=== PATIENT | male | born 1945 | race Caucasian/White ===

== ENCOUNTER → 2018-01-20 | Day surgery (SDC) | payer MEDICARE, SELFPAY | PROVIDERS: PCP Family Medicine; Visit Provider Ophthalmology ==

== ENCOUNTER → 2018-02-19 08:18 | Outpatient (CLI) | payer MEDICARE, SELFPAY ==
[2018-02-19 08:24] LABS: Bacteria Urine None Seen; RBC Urine None Seen (0-5/HPF); WBC Urine None Seen (0-5/HPF)
[2018-02-19 09:35] LABS: Add Manual Diff / Slide Review NO; Basophils Percent Auto 0.2 % (0-2); Eosinophils Percent Auto 5.2 % (2-4); Hematocrit 41.1 % (41-53); Hemoglobin 14.3 g/dL (13.5-17.5); Lymphocytes Percent Auto 26.6 % (25-40); Mean Corpuscular HGB Conc 34.8 % (30-36); Mean Corpuscular Hemoglobin 29.5 PG (26-34); Mean Corpuscular Volume 84.9 fL (80-100); Monocytes Percent Auto 10.9 % (3-14); Neutrophils Absolute Auto 3900 /uL (3000-5900); Neutrophils Percent Auto 57.1 % (50-75); Platelet Count 229 X10^3/uL (150-400); Red Blood Cell Count 4.85 X10^6/uL (4.5-5.9); Red Cell Distribution Width 13.7 % (11.6-14.8); White Blood Cell Count 6.9 X10^3/uL (4.5-11.0)
[2018-02-19 09:42] LABS: Appearance Urine UA CLEAR; Bilirubin Urine UA NEGATIVE (NEGATIVE); Color Urine UA YELLOW; Glucose Urine UA NEGATIVE (Normal); Ketones Urine UA NEGATIVE (NEGATIVE); Leukocyte Esterase Urine UA NEGATIVE (NEGATIVE); Nitrite Urine UA Negative (Negative); Occult Blood Urine UA NEGATIVE (Negative); Protein Urine UA NEGATIVE (Negative); Specific Gravity Urine UA 1.015 (1.000-1.035); Urobilinogen Urine UA 0.2 E.U./dL (0.2)
[2018-02-19 09:53] LABS: Alanine Aminotransferase 35 IU/L (21-72); Albumin 4.3 g/dL (3.5-5.0); Albumin Globulin Ratio 1.3 (1.0-2.8); Alkaline Phosphatase 79 U/L (38-126); Aspartate Aminotransferase 32 IU/L (17-59); BUN Creatinine Ratio 15.7 (6-22); Blood Urea Nitrogen 11 mg/dL (9-20); Calcium 9.4 mg/dL (8.4-10.2); Carbon Dioxide 30 mmol/L (22-32); Chloride 98 mmol/L (98-107); Cholesterol 149 mg/dL (140-199); Estimated Glomerular Filt Rate > 60.0 mL/min (>60); Globulin 3.3 g/dL (1.7-4.1); Glucose 98 mg/dL (80-110); HDL Cholesterol 36 mg/dL (40-60); HEMOLYSIS < 15 (0-50); LDL Cholesterol Calculated 97 mg/dL (<100); Potassium 3.9 mmol/L (3.4-5.1); Sodium 139 mmol/L (137-145); Total Protein 7.6 g/dL (6.3-8.2); Triglycerides 81 mg/dL (35-150)
[2018-02-19 10:17] LABS: Thyroid Stimulating Hormone 1.42 uIU/mL (0.47-4.68)
[2018-02-19 12:52] LABS: Amorphous Sediment Urine 1+; Culture Indicated Urine Cult Not Indicated
== END ==
PROVIDERS: Family Medicine; PCP Family Medicine; Visit Provider Family Medicine
DX: E78.5 Hyperlipidemia, unspecified (principal); I10 Essential (primary) hypertension; Z12.5 Encounter for screening for malignant neoplasm of prostate
CPT/HCPCS: 36415; 80053; 80061; 81001; 84153; 84443; 85025

== ENCOUNTER → 2019-03-23 09:15 | Outpatient (CLI) | payer MEDICARE, SELFPAY ==
[2019-03-23 10:05] LABS: Appearance Urine UA CLEAR; Bilirubin Urine UA NEGATIVE (NEGATIVE); Color Urine UA YELLOW; Glucose Urine UA NEGATIVE (Negative); Ketones Urine UA NEGATIVE (NEGATIVE); Leukocyte Esterase Urine UA NEGATIVE (NEGATIVE); Nitrite Urine UA NEGATIVE (Negative); Occult Blood Urine UA NEGATIVE (Negative); Protein Urine UA NEGATIVE (Negative); Urobilinogen Urine UA 0.2 E.U./dL (0.2)
[2019-03-23 10:28] LABS: Alanine Aminotransferase 30 IU/L (21-72); Albumin 4.1 g/dL (3.5-5.0); Albumin Globulin Ratio 1.3 (1.0-2.8); Alkaline Phosphatase 84 U/L (38-126); Aspartate Aminotransferase 34 IU/L (17-59); Bilirubin Total 0.7 mg/dL (0.2-1.3); Blood Urea Nitrogen 14 mg/dL (9-20); Calcium 9.1 mg/dL (8.4-10.2); Carbon Dioxide 31 mmol/L (22-32); Chloride 102 mmol/L (98-107); Cholesterol 140 mg/dL (140-199); Estimated Glomerular Filt Rate > 60.0 mL/min (>60); Globulin 3.2 g/dL (1.7-4.1); Glucose 95 mg/dL (80-110); HDL Cholesterol 30 mg/dL (40-60); HEMOLYSIS < 15 (0-50); LDL Cholesterol Calculated 94 mg/dL (<100); Potassium 3.8 mmol/L (3.4-5.1); Sodium 141 mmol/L (137-145); Total Protein 7.3 g/dL (6.3-8.2); Triglycerides 78 mg/dL (35-150)
[2019-03-23 10:54] LABS: Thyroid Stimulating Hormone 1.37 uIU/mL (0.47-4.68)
[2019-03-23 16:46] LABS: Prostate Specific Antigen Scrn 1.15 ng/mL (0.1-4.0)
== END ==
PROVIDERS: PCP Family Medicine; Visit Provider Family Medicine
DX: E78.2 Mixed hyperlipidemia (principal); I10 Essential (primary) hypertension; I48.91 Unspecified atrial fibrillation; Z12.5 Encounter for screening for malignant neoplasm of prostate; Z13.29 Encounter for screening for other suspected endocrine disorder
CPT/HCPCS: 36415; 80053; 80061; 81003; 84443; G0103

== ENCOUNTER → 2019-04-26 08:26 | Outpatient (CLI) | payer MEDICARE, SELFPAY ==
[2019-04-26 09:39] LABS: Alanine Aminotransferase 36 IU/L (21-72); Albumin Globulin Ratio 1.3 (1.0-2.8); Alkaline Phosphatase 86 U/L (38-126); Aspartate Aminotransferase 29 IU/L (17-59); Bilirubin Total 1.1 mg/dL (0.2-1.3); Blood Urea Nitrogen 14 mg/dL (9-20); Calcium 9.3 mg/dL (8.4-10.2); Carbon Dioxide 30 mmol/L (22-32); Chloride 98 mmol/L (98-107); Cholesterol 156 mg/dL (140-199); Estimated Glomerular Filt Rate > 60.0 mL/min (>60); Glucose 90 mg/dL (80-110); HDL Cholesterol 39 mg/dL (40-60); HEMOLYSIS < 15 (0-50); LDL Cholesterol Calculated 92 mg/dL (<100); Potassium 4.1 mmol/L (3.4-5.1); Sodium 137 mmol/L (137-145); Triglycerides 124 mg/dL (35-150)
== END ==
PROVIDERS: PCP Family Medicine; Visit Provider Internal Medicine Cardiovascular Disease
DX: I10 Essential (primary) hypertension (principal)
CPT/HCPCS: 36415; 80053; 80061

== ENCOUNTER → 2019-08-23 09:08 | Outpatient (CLI) | payer MEDICARE, SELFPAY ==
[2019-08-23 10:50] LABS: Alanine Aminotransferase 28 IU/L (<50); Albumin 4.2 g/dL (3.5-5.0); Albumin Globulin Ratio 1.6 (1.0-2.8); Alkaline Phosphatase 86 U/L (38-126); Aspartate Aminotransferase 35 IU/L (17-59); BUN Creatinine Ratio 17.1 (6-22); Bilirubin Total 1.2 mg/dL (0.2-1.3); Blood Urea Nitrogen 12 mg/dL (9-20); Calcium 9.3 mg/dL (8.4-10.2); Carbon Dioxide 30 mmol/L (22-32); Chloride 100 mmol/L (98-107); Cholesterol 156 mg/dL (140-199); Estimated Glomerular Filt Rate > 60.0 mL/min (>60); Globulin 2.6 g/dL (1.7-4.1); Glucose 93 mg/dL (80-110); HDL Cholesterol 35 mg/dL (40-60); HEMOLYSIS < 15 (0-50); LDL Cholesterol Calculated 105 mg/dL (<100); Potassium 3.9 mmol/L (3.4-5.1); Sodium 139 mmol/L (137-145); Total Protein 6.8 g/dL (6.3-8.2); Triglycerides 78 mg/dL (35-150)
== END ==
PROVIDERS: PCP Family Medicine; Visit Provider Family Medicine
DX: E78.2 Mixed hyperlipidemia (principal); I10 Essential (primary) hypertension
CPT/HCPCS: 36415; 80053; 80061

== ENCOUNTER → 2020-02-16 08:38 | Outpatient (CLI) | payer MEDICARE, SELFPAY ==
[2020-02-16 09:22] LABS: Alanine Aminotransferase 25 IU/L (<50); Albumin 4.3 g/dL (3.5-5.0); Albumin Globulin Ratio 1.3 (1.0-2.8); Alkaline Phosphatase 90 U/L (38-126); Aspartate Aminotransferase 35 IU/L (17-59); BUN Creatinine Ratio 14.7 (6-22); Bilirubin Total 1.1 mg/dL (0.2-1.3); Blood Urea Nitrogen 10 mg/dL (9-20); Calcium 9.4 mg/dL (8.4-10.2); Carbon Dioxide 30 mmol/L (22-32); Chloride 100 mmol/L (98-107); Cholesterol 141 mg/dL (140-199); Estimated Glomerular Filt Rate > 60.0 mL/min (>60); Globulin 3.3 g/dL (1.7-4.1); Glucose 104 mg/dL (80-110); HDL Cholesterol 31 mg/dL (40-60); HEMOLYSIS < 15 (0-50); LDL Cholesterol Calculated 94 mg/dL (<100); Sodium 137 mmol/L (137-145); Total Protein 7.6 g/dL (6.3-8.2); Triglycerides 80 mg/dL (35-150)
[2020-02-16 09:28] LABS: Add Manual Diff / Slide Review NO; Basophils Absolute Auto 0 /uL (0-100); Basophils Percent Auto 0.6 % (0-2); Eosinophils Absolute Auto 100 /uL (0-450); Eosinophils Percent Auto 1.5 % (2-4); Hematocrit 39.7 % (41-53); Hemoglobin 13.8 g/dL (13.5-17.5); Lymphocytes Absolute Auto 1900 /uL (1100-4500); Lymphocytes Percent Auto 26.5 % (25-40); Mean Corpuscular HGB Conc 34.8 % (30-36); Mean Corpuscular Hemoglobin 29.6 PG (26-34); Mean Corpuscular Volume 85.1 fL (80-100); Monocytes Absolute Auto 900 /uL (0-900); Monocytes Percent Auto 11.7 % (3-14); Neutrophils Absolute Auto 4400 /uL (1500-7000); Neutrophils Percent Auto 59.7 % (50-75); Platelet Count 238 X10^3/uL (150-400); Red Blood Cell Count 4.67 X10^6/uL (4.5-5.9); Red Cell Distribution Width 13.6 % (11.6-14.8); White Blood Cell Count 7.3 X10^3/uL (4.5-11.0)
[2020-02-16 10:11] LABS: Thyroid Stimulating Hormone 1.37 uIU/mL (0.47-4.68)
== END ==
PROVIDERS: PCP Nurse Practitioner; Referring Provider Family Medicine; Visit Provider Family Medicine
DX: Z12.5 Encounter for screening for malignant neoplasm of prostate (principal); I10 Essential (primary) hypertension; I48.91 Unspecified atrial fibrillation; E78.2 Mixed hyperlipidemia
CPT/HCPCS: 36415; 80053; 80061; 84153; 84443; 85025

== ENCOUNTER → 2020-06-22 08:48 | Outpatient (CLI) | payer MEDICARE, SELFPAY ==
[2020-06-22 09:49] LABS: Add Manual Diff / Slide Review NO; Basophils Absolute Auto 0 /uL (0-100); Basophils Percent Auto 0.2 % (0-2); Eosinophils Absolute Auto 100 /uL (0-450); Eosinophils Percent Auto 1.6 % (2-4); Hemoglobin 13.9 g/dL (13.5-17.5); Lymphocytes Absolute Auto 1800 /uL (1100-4500); Lymphocytes Percent Auto 27.2 % (25-40); Mean Corpuscular HGB Conc 34.7 % (30-36); Mean Corpuscular Hemoglobin 29.4 PG (26-34); Mean Corpuscular Volume 84.7 fL (80-100); Monocytes Absolute Auto 900 /uL (0-900); Monocytes Percent Auto 12.7 % (3-14); Neutrophils Absolute Auto 3900 /uL (1500-7000); Neutrophils Percent Auto 58.3 % (50-75); Platelet Count 233 X10^3/uL (150-400); Red Blood Cell Count 4.72 X10^6/uL (4.5-5.9); Red Cell Distribution Width 13.6 % (11.6-14.8); White Blood Cell Count 6.7 X10^3/uL (4.5-11.0)
[2020-06-22 10:10] LABS: Alanine Aminotransferase 24 IU/L (<50); Albumin Globulin Ratio 1.3 (1.0-2.8); Alkaline Phosphatase 97 U/L (38-126); Aspartate Aminotransferase 32 IU/L (17-59); BUN Creatinine Ratio 18.8 (6-22); Blood Urea Nitrogen 13 mg/dL (9-20); Calcium 9.4 mg/dL (8.4-10.2); Carbon Dioxide 33 mmol/L (22-32); Chloride 100 mmol/L (98-107); Cholesterol 135 mg/dL (140-199); Estimated Glomerular Filt Rate > 60.0 mL/min (>60); Glucose 96 mg/dL (80-110); HDL Cholesterol 39 mg/dL (40-60); HEMOLYSIS < 15 (0-50); LDL Cholesterol Calculated 84 mg/dL (<100); Sodium 137 mmol/L (137-145); Triglycerides 59 mg/dL (35-150)
== END ==
PROVIDERS: PCP Nurse Practitioner; Referring Provider Internal Medicine Cardiovascular Disease; Visit Provider Internal Medicine Cardiovascular Disease
DX: Z79.01 Long term (current) use of anticoagulants (principal); E78.2 Mixed hyperlipidemia
CPT/HCPCS: 36415; 80053; 80061; 85025

== ENCOUNTER → 2020-07-18 08:59 | Outpatient (CLI) | payer MEDICARE, SELFPAY ==
--- NOTE | 2020-07-18 09:01 | DI.RAD.S_ITS ---
PROCEDURE: XR HIP W PEL IF DONE RT 2V INDICATIONS: right hip pain TECHNIQUE: AP pelvis with lateral view(s) of the right hip(s). COMPARISON: [facility], , HIP 2V RIGHT, 09/06/2015, 10:40. FINDINGS: Bones: No fractures or dislocations but there has been appreciable worsening of degenerative hip joint osteoarthritis on the right. As was previously the case the degree of degeneration is near severe, and degeneration at the left hip is moderate.. Pelvic ring appears intact. No suspicious bony lesions. Soft tissues: The visualized bowel gas pattern is normal. No suspicious soft tissue calcifications. IMPRESSION: Asymmetric hip joint osteoarthritis, near severe on the right and moderate in severity on the left. The degree of degeneration at the right hip has mildly worsened as expected from 09/06/15. Dictated by: Prosper Sepulveda M.D. on 07/18/2020 at 9:57 Approved by: Prosper Sepulveda M.D. on 07/18/2020 at 9:59
== END ==
PROVIDERS: PCP Nurse Practitioner; Referring Provider Nurse Practitioner; Visit Provider Nurse Practitioner
DX: M25.551 Pain in right hip (principal); M16.0 Bilateral primary osteoarthritis of hip; M79.604 Pain in right leg
CPT/HCPCS: 73502

== ENCOUNTER → 2020-10-13 12:17 | Outpatient (CLI) | payer MEDICARE, SELFPAY ==
[2020-10-13] MEDS: COVID-19 VACC #1, MRNA(MOD) 100 MCG/0.5 ML VIAL IM (12:27)
== END ==
PROVIDERS: PCP Nurse Practitioner; Visit Provider Internal Medicine
DX: Z23 Encounter for immunization (principal)
CPT/HCPCS: 0011A; 91301

== ENCOUNTER → 2020-11-10 13:00 | Outpatient (CLI) | payer MEDICARE, SELFPAY ==
[2020-11-10] MEDS: COVID-19 VACC #2, MRNA(MOD) 100 MCG/0.5 ML VIAL IM (13:20)
== END ==
PROVIDERS: PCP Nurse Practitioner; Visit Provider Internal Medicine
DX: Z23 Encounter for immunization (principal)
CPT/HCPCS: 0012A; 91301

== ENCOUNTER → 2020-12-20 08:32 | Outpatient (CLI) | payer MEDICARE, SELFPAY ==
[2020-12-20 09:31] LABS: Hemoglobin A1C% w Est Avg Glu 5.7 % (4.0-6.0)
[2020-12-20 09:51] LABS: Alanine Aminotransferase 22 IU/L (<50); Albumin Globulin Ratio 1.4 (1.0-2.8); Alkaline Phosphatase 94 U/L (38-126); Aspartate Aminotransferase 31 IU/L (17-59); BUN Creatinine Ratio 14.3 (6-22); Bilirubin Total 0.9 mg/dL (0.2-1.3); Blood Urea Nitrogen 9 mg/dL (9-20); Calcium 9.5 mg/dL (8.4-10.2); Carbon Dioxide 30 mmol/L (22-32); Chloride 99 mmol/L (98-107); Cholesterol 140 mg/dL (140-199); Estimated Glomerular Filt Rate > 60.0 mL/min (>60); Globulin 2.8 g/dL (1.7-4.1); Glucose 94 mg/dL (80-110); HDL Cholesterol 41 mg/dL (40-60); HEMOLYSIS < 15 (0-50); LDL Cholesterol Calculated 83 mg/dL (<100); Potassium 3.7 mmol/L (3.4-5.1); Sodium 136 mmol/L (137-145); Total Protein 6.8 g/dL (6.3-8.2); Triglycerides 79 mg/dL (35-150)
[2020-12-20 10:12] LABS: Prostate Specific Antigen 1.58 ng/mL (0.10-4.00); Thyroid Stimulating Hormone 1.43 uIU/mL (0.47-4.68)
[2020-12-20 10:14] LABS: Creatinine Urine Random 79.6 mg/dL
[2020-12-20 10:18] LABS: Microalbumi Creatinin Ratio Ur 17.5 ug/mg CR (<30); Microalbumin Urine Random 1.4 mg/dL (0-1.6)
== END ==
PROVIDERS: PCP Nurse Practitioner; Referring Provider Nurse Practitioner; Visit Provider Nurse Practitioner
DX: E78.2 Mixed hyperlipidemia (principal); Z79.899 Other long term (current) drug therapy; I10 Essential (primary) hypertension; I48.20 Chronic atrial fibrillation, unspecified; Z12.5 Encounter for screening for malignant neoplasm of prostate
CPT/HCPCS: 36415; 80053; 80061; 82043; 82570; 83036; 84153; 84443; G0103

== ENCOUNTER → 2020-12-25 13:08 | Outpatient (CLI) | payer MEDICARE, SELFPAY ==
[2020-12-27 14:12] LABS: Fecal Immunochemical Test Negative (Negative)
== END ==
PROVIDERS: PCP Nurse Practitioner; Referring Provider Nurse Practitioner; Visit Provider Nurse Practitioner
DX: E78.2 Mixed hyperlipidemia (principal); I10 Essential (primary) hypertension; I48.20 Chronic atrial fibrillation, unspecified; Z79.899 Other long term (current) drug therapy; Z12.11 Encounter for screening for malignant neoplasm of colon
CPT/HCPCS: 82274

== ENCOUNTER → 2021-06-22 08:52 | Outpatient (CLI) | payer MEDICARE, SELFPAY ==
[2021-06-22 10:14] LABS: Add Manual Diff / Slide Review NO; Basophils Absolute Auto 0 /uL (0-100); Basophils Percent Auto 0.2 % (0-2); Eosinophils Absolute Auto 100 /uL (0-450); Eosinophils Percent Auto 1.6 % (2-4); Hematocrit 41.1 % (41-53); Hemoglobin 14.1 g/dL (13.5-17.5); Lymphocytes Absolute Auto 2400 /uL (1100-4500); Lymphocytes Percent Auto 30.9 % (25-40); Mean Corpuscular HGB Conc 34.3 % (30-36); Mean Corpuscular Hemoglobin 29.3 PG (26-34); Mean Corpuscular Volume 85.7 fL (80-100); Monocytes Absolute Auto 1000 /uL (0-900); Monocytes Percent Auto 12.5 % (3-14); Neutrophils Absolute Auto 4200 /uL (1500-7000); Neutrophils Percent Auto 54.8 % (50-75); Platelet Count 229 X10^3/uL (150-400); Red Cell Distribution Width 13.9 % (11.6-14.8); White Blood Cell Count 7.7 X10^3/uL (4.5-11.0)
[2021-06-22 10:30] LABS: Alanine Aminotransferase 28 IU/L (<50); Albumin 4.1 g/dL (3.5-5.0); Albumin Globulin Ratio 1.5 (1.0-2.8); Alkaline Phosphatase 87 U/L (38-126); Aspartate Aminotransferase 31 IU/L (17-59); Blood Urea Nitrogen 13 mg/dL (9-20); Calcium 9.5 mg/dL (8.4-10.2); Carbon Dioxide 34 mmol/L (22-32); Chloride 101 mmol/L (98-107); Cholesterol 155 mg/dL (140-199); Estimated Glomerular Filt Rate > 60.0 mL/min (>60); Globulin 2.8 g/dL (1.7-4.1); Glucose 91 mg/dL (80-110); HDL Cholesterol 45 mg/dL (40-60); HEMOLYSIS < 15 (0-50); LDL Cholesterol Calculated 94 mg/dL (<100); Potassium 3.8 mmol/L (3.4-5.1); Sodium 139 mmol/L (137-145); Total Protein 6.9 g/dL (6.3-8.2); Triglycerides 82 mg/dL (35-150)
== END ==
PROVIDERS: PCP Nurse Practitioner; Referring Provider Internal Medicine Cardiovascular Disease; Visit Provider Internal Medicine Cardiovascular Disease
DX: Z79.01 Long term (current) use of anticoagulants (principal); E78.2 Mixed hyperlipidemia
CPT/HCPCS: 36415; 80053; 80061; 85025

== ENCOUNTER → 2021-08-29 14:44 | Outpatient (CLI) | payer MEDICARE, SELFPAY ==
[2021-08-29 16:54] LABS: BUN Creatinine Ratio 13.9 (6-22); Blood Urea Nitrogen 11 mg/dL (9-20); Calcium 9.5 mg/dL (8.4-10.2); Carbon Dioxide 29 mmol/L (22-32); Chloride 101 mmol/L (98-107); Estimated Glomerular Filt Rate > 60.0 mL/min (>60); Glucose 137 mg/dL (80-110); HEMOLYSIS < 15 (0-50); Potassium 4.1 mmol/L (3.4-5.1); Sodium 139 mmol/L (137-145)
== END ==
PROVIDERS: PCP Nurse Practitioner; Referring Provider Internal Medicine Cardiovascular Disease; Visit Provider Internal Medicine Cardiovascular Disease
DX: I10 Essential (primary) hypertension (principal)
CPT/HCPCS: 36415; 80048

== ENCOUNTER → 2021-09-27 14:52 | Outpatient (CLI) | payer MEDICARE, SELFPAY ==
[2021-09-27 16:28] LABS: BUN Creatinine Ratio 16.3 (6-22); Blood Urea Nitrogen 14 mg/dL (9-20); Calcium 9.4 mg/dL (8.4-10.2); Carbon Dioxide 28 mmol/L (22-32); Chloride 98 mmol/L (98-107); Estimated Glomerular Filt Rate > 60.0 mL/min (>60); Glucose 114 mg/dL (80-110); HEMOLYSIS 23 (0-50); Potassium 4.5 mmol/L (3.4-5.1); Sodium 132 mmol/L (137-145)
== END ==
PROVIDERS: PCP Nurse Practitioner; Referring Provider Internal Medicine Cardiovascular Disease; Visit Provider Internal Medicine Cardiovascular Disease
DX: I10 Essential (primary) hypertension (principal)
CPT/HCPCS: 36415; 80048

== ENCOUNTER 2021-10-14 05:38 | Emergency (ER) | payer MEDICARE, SELFPAY ==
[2021-10-14] VITALS (13 sets, daily range): BP systolic 136–222; BP diastolic 66–102; PULSE 54–70; RESP 12–20; TEMP 36.4–36.5; O2SAT 96–100; BMI 27.3
--- NOTE | 2021-10-14 05:39 | DI.RAD.S_ITS ---
PROCEDURE: XR CHEST 1V INDICATIONS: chest pressure TECHNIQUE: One view of the chest was acquired. COMPARISON: [facility], CR, XR CHEST 1 VIEW, 08/05/2021, 12:21. [facility], CR, CHEST 1 VIEW, 06/25/2017, 13:09. FINDINGS: Surgical changes and devices: Loop recorder. Lungs and pleura: Lungs are clear. Prominent lung volumes. No pleural effusions or pneumothorax. Mediastinum: Mediastinal contours appear normal. Heart size is normal. Bones and chest wall: No suspicious bony lesions. Overlying soft tissues appear unremarkable. IMPRESSION: No acute cardiopulmonary abnormality. This report is concordant with the overnight preliminary interpretation. Dictated by: Mehdi Mejia M.D. on 10/14/2021 at 7:04 Approved by: Mehdi Mejia M.D. on 10/14/2021 at 7:05
--- NOTE | 2021-10-14 05:51 | ED_ITS ---
HPI - Chest Pain General Chief Complaint: Chest Pain Stated Complaint: chest pressure, heart condition Time Seen by Provider: 10/14/21 05:39 Source: patient Mode of arrival: Ambulatory History of Present Illness HPI narrative: 75-year-old male nonsmoker with history of atrial fibrillation on Eliquis and hypertension presents with his in the chief complaint of chest pressure and heaviness that has been increasing over the past day or so. He states that he has a very complicated recent medical history with multiple visits and hosp italizations. In the big picture, he is very difficult to control blood pressure and his cardiology team is pursuing an ablation in order to remove some of his AFib medications which would allow them to be more aggressive in the treatment of his hypertension. He has undergone countless medication changes in the fast month or 2. Few weeks ago he had been admitted at [facility], he was visiting friends and family in [place] and had an unprovoked syncopal episode. He was admitted for few days and had a broad of tests which were (per the patient) essentially normal. He had followed up with his cardiology team 2 days ago and due to his slowly rising blood pressures had amlodipine 5 mg added to his regimen, he took his 1st dose yesterday. Over the course of the day he started developing increasing frequency and episodes of chest pressure that seemed to be worse when he lies flat and improved when he is up walking around. He has an existing as needed prescription for Catapres 0.1 mg which he is supposed to take every time his blood pressure is over 180. Typically he will take it once per day, yesterday he took it 3 times. He denies any headache or blurred vision. He denies any shortness of breath. He has had no fever or chills and denies nausea or vomiting. Related Data Home Medications Medication Instructions Recorded Confirmed latanoprost 0.005 % eye drops [address] [facility] HS #0 06/25/17 10/08/21 apixaban 5 mg tablet (Eliquis) 5 mg PO BID 05/17/19 10/08/21 amiodarone 200 mg tablet 100 mg PO DAILY tab 10/08/21 10/08/21 carvedilol 12.5 mg tablet 12.5 mg PO BID 10/08/21 10/08/21 clonidine HCl 0.1 mg tablet 0.1 mg PO .every 2 hours tab 10/08/21 10/08/21 spironolactone 25 mg tablet 25 mg PO DAILY 10/08/21 10/08/21 Previous Rx's Medication Instructions Recorded atorvastatin 40 mg tablet (Lipitor) 40 mg PO HS #90 tab 07/10/21 lisinopril 40 mg tablet 40 mg PO DAILY #90 tab 08/14/21 Allergies Allergy/AdvReac Type Severity Reaction Status Date / Time No Known Drug Allergies Allergy Verified 10/14/21 05:49 Review of Systems Review of Systems Narrative: GENERAL: Denies chills, fatigue, malaise, fever, sweats. HEENT: Denies sinus pain, ear pain, sore throat, difficulty swallowing, dizziness. RESPIRATORY: Denies dyspnea, cough, wheezing, hemoptysis, sputum. CARDIOVASCULAR: See HPI GASTROINTESTINAL: Denies nausea, vomiting, abdominal pain, diarrhea, constipation, melena. : Denies dysuria, frequency, incontinence, hematuria, urinary retention. MUSCULOSKELETAL: denies weakness, joint pain, or bony pain SKIN: Denies rash, skin lesions, or other NEUROLOGIC: Denies weakness, headache, numbness, change in speech, confusion, seizures, incoordination. PSYCHIATRIC: No concerning psychosocial issues. 12 point review of systems is negative except for those stated above Patient History Medical History A-fib Atrial fibrillation (06/2017) Atrial fibrillation with rapid ventricular response (06/25/17) BCC (basal cell carcinoma of skin) Chronic anticoagulation Chronic atrial fibrillation Colon polyps (05/18/09) Gait abnormality Hyperlipidemia Hypertension Melanoma (2010) Psoriasis (2010) Right hip pain Right leg pain SCCA (squamous cell carcinoma) of skin Surgical History History of colonoscopy with polypectomy (05/18/09) History of colonoscopy with polypectomy (04/15/17) History of left cataract surgery (01/20/18) History of melanoma excision (2010) History of melanoma excision (2015) History of right cataract surgery (01/06/18) History of vasectomy (1987) Family History Father Cancer Grandfather Stroke Mother Heart disease Grandmother Cancer Grandfather Stroke Grandmother Stroke Sister No problems noted. Social History household members: spouse Smoking Status: Never smoker second hand exposure: No alcohol intake: never substance use type: does not use Smoking Status: Never smoker Substance Use Type: does not use Exam Narrative Exam Narrative: GENERAL: [75 year old patient appears stated age. Well-developed patient, in mild distress. HEAD: Atraumatic. Normocephalic. EYES: Pupils equal round and reactive. Extraocular motions intact. No scleral icterus. No injection or drainage. ENT: Nose without bleeding, purulent drainage. Throat without erythema, t onsillar hypertrophy or exudate. Airway patent. NECK: Trachea midline. Non tender CARDIOVASCULAR: Regular rate and rhythm without murmurs, gallops, or rubs. RESPIRATORY: Clear to auscultation. Breath sounds equal bilaterally. No wheezes, rales, or rhonchi. GASTROINTESTINAL: Abdomen soft, non-tender, nondistended. EXTREMITIES: No edema or joint tenderness. BACK: Nontender without deformity or crepitance. No flank tenderness. NEURO: AOx3. SKIN: No rash or erythema of visible areas Initial Vital Signs Initial Vital Signs: Vital Signs Pulse Rate 70 10/14/21 05:42 Blood Pressure 222/102 H 10/14/21 05:42 Pulse Oximetry 99 10/14/21 05:42 Course Course Course Narrative: On arrival patient's systolic blood pressure is 222 and he is symptomatic, by the time labs are drawn EKGs performed and he is given 15-20 minutes to rest his blood pressure drops to the 170s and he is essentially asymptomatic. Orders Ordered: Discontinued Medications Clonidine HCl (Clonidine Tts 0.1 Mg Patch) 0.1 mg TOP NOW ONE Stop: 10/14/21 06:51 Last Admin: 10/14/21 07:02 Dose: 0.1 mg Documented by: SHRUTHIARRDanya Sodium Chloride (Normal Saline 0.9%) 1,000 mls @ 150 mls/hr IV CONT ANGELA Last Admin: 10/14/21 06:37 Dose: 150 mls/hr Documented by: ARMANI Consultations Consultation #1: call to Dr. Deras. Recommends Catapres patch, encourage patient to sleep at 45 degree angle and close follow up Vital Signs Vital signs: Vital Signs - 8 hr 10/14/21 05:42 10/14/21 05:46 10/14/21 05:56 Temperature 97.7 F Pulse Rate 70 64 60 Pulse Rate [Orthostatic Lying] Pulse Rate [Orthostatic Sitting] Pulse Rate [Orthostatic Standing] Respiratory Rate 18 18 Blood Pressure 222/102 H 222/102 H 176/84 H Blood Pressure [Orthostatic Lying] Blood Pressure [Orthostatic Sitting] Blood Pressure [Orthostatic Standing] Pulse Oximetry 99 98 99 10/14/21 06:00 10/14/21 06:19 10/14/21 06:21 Temperature Pulse Rate 61 60 60 Pulse Rate [Orthostatic Lying] Pulse Rate [Orthostatic Sitting] Pulse Rate [Orthostatic Standing] Respiratory Rate 16 12 15 Blood Pressure 177/92 H 166/81 H 162/83 H Blood Pressure [Orthostatic Lying] Blood Pressure [Orthostatic Sitting] Blood Pressure [Orthostatic Standing] Pulse Oximetry 100 97 98 10/14/21 06:23 10/14/21 06:30 10/14/21 06:35 Temperature Pulse Rate 66 59 L Pulse Rate [Orthostatic Lying] 60 Pulse Rate [Orthostatic Sitting] 60 Pulse Rate [Orthostatic Standing] 66 Respiratory Rate 15 20 Blood Pressure 136/75 168/77 H Blood Pressure [Orthostatic Lying] 166/81 H Blood Pressure [Orthostatic Sitting] 162/83 H Blood Pressure [Orthostatic Standing] 136/75 Pulse Oximetry 98 98 MDM - Chest Pain Lab Data Result diagrams: 10/14/21 05:58 10/14/21 05:58 Labs: Lab Results 10/14/21 10/14/21 Range/Units 05:58 05:58 WBC 9.0 (4.5-11.0) X10^3/uL RBC 5.13 (4.5-5.9) X10^6/uL Hgb 14.9 (13.5-17.5) g/dL Hct 43.3 (41-53) % MCV 84.4 (80-100) fL MCH 29.1 (26-34) PG MCHC 34.4 (30-36) % RDW 14.0 (11.6-14.8) % Plt Count 221 (150-400) X10^3/uL Neut % (Auto) 67.1 (50-75) % Lymph % (Auto) 21.2 L (25-40) % [place] % (Auto) 9.4 (3-14) % Eos % (Auto) 2.0 (2-4) % Baso % (Auto) 0.3 (0-2) % Neut # (Auto) 6000 (3597-5916) /uL Lymph # (Auto) 1900 (6486-6467) /uL [place] # (Auto) 800 (0-900) /uL Eos # (Auto) 200 (0-450) /uL Baso # (Auto) 0 (0-100) /uL Sodium 128 L (137-145) mmol/L Potassium 4.3 (3.4-5.1) mmol/L Chloride 94 L (98-107) mmol/L Carbon Dioxide 28 (22-32) mmol/L BUN 11 (9-20) mg/dL Creatinine 0.74 (0.66-1.25) mg/dL Estimated GFR > 60.0 (>60) mL/min BUN/Creatinine Ratio 14.9 (6-22) Glucose 106 (80-110) mg/dL Calcium 9.6 (8.4-10.2) mg/dL Total Bilirubin 0.9 (0.2-1.3) mg/dL AST 31 (17-59) IU/L ALT 28 (<50) IU/L Alkaline Phosphatase 88 (38-126) U/L Total Creatine Kinase 63 (55-170) U/L CK-MB (CK-2) TNP CK-MB (CK-2) Rel Index TNP Troponin I < 0.012 (0.01-0.034) ng/mL NT-Pro-B Natriuret Pep 256 H (<125) pg/mL Total Protein 8.2 (6.3-8.2) g/dL Albumin 4.7 (3.5-5.0) g/dL Globulin 3.5 (1.7-4.1) g/dL Albumin/Globulin Ratio 1.3 (1.0-2.8) Lipase 126 (23-300) U/L Discharge Plan Departure Patient Disposition: Home Clinical Impression: Labile blood pressure, Hypertension Instructions: DI for Malignant Hypertension Activity Restrictions/Additional Instructions: *You have been diagnosed with [symptomatic hypertension ] *What to do: *Please continue to take your regular medications as directed. [ ] Today you were given a Catapres 0.1mg transdermal patch *Please follow up with your primary director of managed services in 2-3 days, call for an appointment. Let them know you were seen in the Emergency Department and that we ask that you be seen in follow up. We will electronically transmit a record of today's note if your PCP is in our system * also, as we discussed and as was recommended by Cardiology please try your best to sleep at a 45 degree angle, we recognize this may be difficult and uncomfortable but do the best you can. *If you do not have a primary care provider please contact the [facility] Resource line at [phone]. They will ask some questions about your medical history and help get you set up with a doctor in the community. *Return to Emergency Department if you should have any new, worsening or concerning symptoms, such as [fever greater than 101 F, shaking chills, worsening pain, persistent vomiting or other bothersome symptoms] Prescriptions: No Action latanoprost 0.005 % drops 1 drp OPHTH HS Qty: 0 0RF atorvastatin [Lipitor] 40 mg tablet 40 mg PO HS Qty: 90 3RF amiodarone 200 mg tablet 100 mg PO DAILY 0RF carvedilol 12.5 mg tablet 12.5 mg PO BID 0RF Rx Instructions: must administer with a meal/food spironolactone 25 mg tablet 25 mg PO DAILY 0RF clonidine HCl 0.1 mg tablet 0.1 mg PO .every 2 hours 0RF Label Comments: Take 1 tab every 2 hours as needed for systolic BP >180. Eliquis 5 mg tablet 5 mg PO BID 0RF lisinopril 40 mg tablet 40 mg PO DAILY Qty: 90 3RF Rx Instructions: Take 1 tab daily in the evening for BP, goal <140/90 consistently Referrals: Azam Ravi MD [Physician] - Sydni Garcia ARNP [Primary Care Provider] -
[2021-10-14 06:05] LABS: Add Manual Diff / Slide Review NO; Basophils Absolute Auto 0 /uL (0-100); Basophils Percent Auto 0.3 % (0-2); Eosinophils Absolute Auto 200 /uL (0-450); Hematocrit 43.3 % (41-53); Hemoglobin 14.9 g/dL (13.5-17.5); Lymphocytes Absolute Auto 1900 /uL (1100-4500); Lymphocytes Percent Auto 21.2 % (25-40); Mean Corpuscular HGB Conc 34.4 % (30-36); Mean Corpuscular Hemoglobin 29.1 PG (26-34); Mean Corpuscular Volume 84.4 fL (80-100); Monocytes Absolute Auto 800 /uL (0-900); Monocytes Percent Auto 9.4 % (3-14); Neutrophils Absolute Auto 6000 /uL (1500-7000); Neutrophils Percent Auto 67.1 % (50-75); Platelet Count 221 X10^3/uL (150-400); Red Blood Cell Count 5.13 X10^6/uL (4.5-5.9)
[2021-10-14 06:16] LABS: Alanine Aminotransferase 28 IU/L (<50); Albumin 4.7 g/dL (3.5-5.0); Albumin Globulin Ratio 1.3 (1.0-2.8); Alkaline Phosphatase 88 U/L (38-126); Aspartate Aminotransferase 31 IU/L (17-59); BUN Creatinine Ratio 14.9 (6-22); Bilirubin Total 0.9 mg/dL (0.2-1.3); Blood Urea Nitrogen 11 mg/dL (9-20); Calcium 9.6 mg/dL (8.4-10.2); Carbon Dioxide 28 mmol/L (22-32); Chloride 94 mmol/L (98-107); Creatine Kinase 63 U/L (55-170); Estimated Glomerular Filt Rate > 60.0 mL/min (>60); Globulin 3.5 g/dL (1.7-4.1); Glucose 106 mg/dL (80-110); HEMOLYSIS < 15 (0-50); Lipase 126 U/L (23-300); Potassium 4.3 mmol/L (3.4-5.1); Sodium 128 mmol/L (137-145); Total Protein 8.2 g/dL (6.3-8.2)
[2021-10-14 06:28] LABS: NT-proBNP (BNP-Adult 18+) 256 pg/mL (<125); Troponin I < 0.012 ng/mL (0.01-0.034)
[2021-10-14] MEDS: SODIUM CHLORIDE 0.9% 1,000 ML 150 ML IV (06:37)
[2021-10-14] MEDS: cloNIDine TTS 0.1 MG PATCH TOP (07:02)
== END 2021-10-14 07:55 | disposition home or self-care (01) ==
PROVIDERS: Emergency Provider Emergency Medicine; PCP Nurse Practitioner
DX: I10 Essential (primary) hypertension (principal); Z79.01 Long term (current) use of anticoagulants
CPT/HCPCS: 36415; 71045; 80053; 82550; 83690; 83880; 84484; 85025; 93005; 99284

== ENCOUNTER → 2021-10-22 09:34 | Outpatient (CLI) | payer MEDICARE, SELFPAY ==
[2021-10-22 11:40] LABS: Alanine Aminotransferase 20 IU/L (<50); Albumin 4.1 g/dL (3.5-5.0); Albumin Globulin Ratio 1.3 (1.0-2.8); Alkaline Phosphatase 66 U/L (38-126); Aspartate Aminotransferase 25 IU/L (17-59); BUN Creatinine Ratio 15.3 (6-22); Bilirubin Total 0.8 mg/dL (0.2-1.3); Blood Urea Nitrogen 13 mg/dL (9-20); Calcium 9.4 mg/dL (8.4-10.2); Carbon Dioxide 27 mmol/L (22-32); Chloride 95 mmol/L (98-107); Estimated Glomerular Filt Rate > 60.0 mL/min (>60); Globulin 3.1 g/dL (1.7-4.1); Glucose 110 mg/dL (80-110); HEMOLYSIS < 15 (0-50); Magnesium 1.9 mg/dL (1.6-2.3); Potassium 4.4 mmol/L (3.4-5.1); Sodium 129 mmol/L (137-145); Total Protein 7.2 g/dL (6.3-8.2)
== END ==
PROVIDERS: PCP Nurse Practitioner; Referring Provider Nurse Practitioner; Visit Provider Nurse Practitioner
DX: E87.1 Hypo-osmolality and hyponatremia (principal); I10 Essential (primary) hypertension; T50.2X5A Adverse effect of carbonic-anhydrase inhibitors, benzothiadiazides and other diuretics, initial encounter
CPT/HCPCS: 36415; 80053; 83735

== ENCOUNTER → 2021-11-19 11:10 | Outpatient (CLI) | payer MEDICARE, SELFPAY ==
[2021-11-19 13:42] LABS: Blood Urea Nitrogen 15 mg/dL (9-20); Calcium 9.3 mg/dL (8.4-10.2); Carbon Dioxide 28 mmol/L (22-32); Chloride 99 mmol/L (98-107); Estimated Glomerular Filt Rate > 60.0 mL/min (>60); Glucose 99 mg/dL (80-110); HEMOLYSIS < 15 (0-50); Potassium 4.4 mmol/L (3.4-5.1); Sodium 132 mmol/L (137-145)
== END ==
PROVIDERS: PCP Nurse Practitioner; Referring Provider Nurse Practitioner; Visit Provider Nurse Practitioner
DX: E83.42 Hypomagnesemia (principal); E87.1 Hypo-osmolality and hyponatremia
CPT/HCPCS: 36415; 80048; 83735

== ENCOUNTER → 2021-12-25 11:08 | Outpatient (CLI) | payer MEDICARE, SELFPAY ==
[2021-12-25 13:26] LABS: BUN Creatinine Ratio 16.4 (6-22); Blood Urea Nitrogen 12 mg/dL (9-20); Calcium 9.1 mg/dL (8.4-10.2); Carbon Dioxide 26 mmol/L (22-32); Chloride 100 mmol/L (98-107); Estimated Glomerular Filt Rate > 60.0 mL/min (>60); Glucose 96 mg/dL (80-110); HEMOLYSIS < 15 (0-50); Potassium 4.5 mmol/L (3.4-5.1); Sodium 133 mmol/L (137-145)
== END ==
PROVIDERS: PCP Nurse Practitioner; Referring Provider Internal Medicine Cardiovascular Disease; Visit Provider Internal Medicine Cardiovascular Disease
DX: I10 Essential (primary) hypertension (principal); E78.2 Mixed hyperlipidemia; I48.20 Chronic atrial fibrillation, unspecified; Z79.899 Other long term (current) drug therapy
CPT/HCPCS: 36415; 80048

== ENCOUNTER → 2021-12-31 08:33 | Outpatient (CLI) | payer MEDICARE, SELFPAY ==
[2021-12-31 09:53] LABS: Add Manual Diff / Slide Review NO; Basophils Absolute Auto 0 /uL (0-100); Basophils Percent Auto 0.2 % (0-2); Eosinophils Absolute Auto 200 /uL (0-450); Eosinophils Percent Auto 3.3 % (2-4); Hematocrit 35.6 % (41-53); Hemoglobin 12.1 g/dL (13.5-17.5); Lymphocytes Absolute Auto 1400 /uL (1100-4500); Lymphocytes Percent Auto 23.7 % (25-40); Mean Corpuscular HGB Conc 34.1 % (30-36); Mean Corpuscular Hemoglobin 29.3 PG (26-34); Mean Corpuscular Volume 86.1 fL (80-100); Monocytes Absolute Auto 700 /uL (0-900); Neutrophils Absolute Auto 3700 /uL (1500-7000); Neutrophils Percent Auto 60.8 % (50-75); Platelet Count 243 X10^3/uL (150-400); Red Blood Cell Count 4.14 X10^6/uL (4.5-5.9); White Blood Cell Count 6.1 X10^3/uL (4.5-11.0)
[2021-12-31 10:04] LABS: Alanine Aminotransferase 22 IU/L (<50); Albumin Globulin Ratio 1.4 (1.0-2.8); Alkaline Phosphatase 76 U/L (38-126); Aspartate Aminotransferase 28 IU/L (17-59); BUN Creatinine Ratio 13.2 (6-22); Bilirubin Total 0.7 mg/dL (0.2-1.3); Blood Urea Nitrogen 10 mg/dL (9-20); Carbon Dioxide 26 mmol/L (22-32); Chloride 102 mmol/L (98-107); Creatine Kinase 77 U/L (55-170); Estimated Glomerular Filt Rate > 60.0 mL/min (>60); Globulin 2.9 g/dL (1.7-4.1); Glucose 115 mg/dL (80-110); HEMOLYSIS < 15 (0-50); Potassium 4.3 mmol/L (3.4-5.1); Sodium 135 mmol/L (137-145); Total Protein 6.9 g/dL (6.3-8.2)
[2021-12-31 10:15] LABS: Troponin I < 0.012 ng/mL (0.01-0.034)
[2021-12-31 10:22] LABS: Free T3, Triiodothyronine Free 2.94 pg/mL (2.77-5.27); Free T4, Direct Thyroxine 1.65 ng/dL (0.78-2.19)
[2021-12-31 10:35] LABS: Thyroid Stimulating Hormone 1.09 uIU/mL (0.47-4.68)
== END ==
LOC: LAB 08:35 → RESP 08:36
PROVIDERS: PCP Nurse Practitioner; Referring Provider Nurse Practitioner; Visit Provider Nurse Practitioner
DX: R07.89 Other chest pain (principal)
CPT/HCPCS: 36415; 80053; 82550; 84439; 84443; 84481; 84484; 85025; 93005; 93010

== ENCOUNTER → 2022-02-22 16:02 | Outpatient (CLI) | payer MEDICARE, SELFPAY ==
[2022-02-22 17:19] LABS: Blood Urea Nitrogen 15 mg/dL (9-20); Calcium 9.1 mg/dL (8.4-10.2); Carbon Dioxide 27 mmol/L (22-32); Chloride 100 mmol/L (98-107); Estimated Glomerular Filt Rate > 60 mL/min (>60); Glucose 173 mg/dL (80-110); HEMOLYSIS < 15 (0-50); Sodium 134 mmol/L (137-145)
== END ==
PROVIDERS: PCP Nurse Practitioner; Referring Provider Internal Medicine Cardiovascular Disease; Visit Provider Internal Medicine Cardiovascular Disease
DX: I48.0 Paroxysmal atrial fibrillation (principal)
CPT/HCPCS: 36415; 80048

== ENCOUNTER → 2022-05-13 08:35 | Outpatient (CLI) | payer MEDICARE, SELFPAY ==
[2022-05-13 10:28] LABS: Creatinine Urine Random 78.5 mg/dL
[2022-05-13 10:31] LABS: Microalbumi Creatinin Ratio Ur 10.1 ug/mg CR (<30); Microalbumin Urine Random 0.8 mg/dL (0-1.6)
[2022-05-13 11:24] LABS: Alanine Aminotransferase 21 IU/L (<50); Albumin 3.9 g/dL (3.5-5.0); Albumin Globulin Ratio 1.3 (1.0-2.8); Alkaline Phosphatase 87 U/L (38-126); Aspartate Aminotransferase 28 IU/L (17-59); BUN Creatinine Ratio 15.1 (6-22); Bilirubin Total 0.9 mg/dL (0.2-1.3); Blood Urea Nitrogen 11 mg/dL (9-20); Calcium 9.1 mg/dL (8.4-10.2); Carbon Dioxide 29 mmol/L (22-32); Chloride 103 mmol/L (98-107); Estimated Glomerular Filt Rate > 60 mL/min (>60); Glucose 95 mg/dL (80-110); HEMOLYSIS < 15 (0-50); Potassium 4.3 mmol/L (3.4-5.1); Sodium 137 mmol/L (137-145); Total Protein 6.9 g/dL (6.3-8.2)
[2022-05-13 16:53] LABS: Hep C Virus Ab w/Reflex Quant NEGATIVE s/c (NEGATIVE)
== END ==
PROVIDERS: PCP Nurse Practitioner; Referring Provider Nurse Practitioner; Visit Provider Nurse Practitioner
DX: Z11.59 Encounter for screening for other viral diseases (principal); Z79.899 Other long term (current) drug therapy; I10 Essential (primary) hypertension
CPT/HCPCS: 36415; 80053; 82043; 82570; 86803

== ENCOUNTER → 2022-08-14 08:19 | Outpatient (CLI) | payer MEDICARE, SELFPAY ==
[2022-08-14 09:20] LABS: Add Manual Diff / Slide Review NO; Basophils Absolute Auto 0 /uL (0-100); Eosinophils Absolute Auto 100 /uL (0-450); Red Cell Distribution Width 12.7 % (11.6-14.8)
[2022-08-14 09:29] LABS: Alanine Aminotransferase 22 IU/L (<50); Albumin Globulin Ratio 1.3 (1.0-2.8); Alkaline Phosphatase 84 U/L (38-126); Aspartate Aminotransferase 25 IU/L (17-59); BUN Creatinine Ratio 21.5 (6-22); Bilirubin Total 0.7 mg/dL (0.2-1.3); Blood Urea Nitrogen 17 mg/dL (9-20); Carbon Dioxide 25 mmol/L (22-32); Chloride 100 mmol/L (98-107); Cholesterol 159 mg/dL (140-199); Estimated Glomerular Filt Rate > 60 mL/min (>60); Glucose 96 mg/dL (80-110); HDL Cholesterol 44 mg/dL (40-60); HEMOLYSIS < 15 (0-50); LDL Cholesterol Calculated 100 mg/dL (<100); Potassium 4.5 mmol/L (3.4-5.1); Sodium 134 mmol/L (137-145); Triglycerides 76 mg/dL (35-150)
[2022-08-14 10:55] LABS: Basophils Percent Auto 0.2 % (0-2); Eosinophils Percent Auto 1.8 % (2-4); Hematocrit 37.2 % (41-53); Hemoglobin 12.7 g/dL (13.5-17.5); Lymphocytes Absolute Auto 1900 /uL (1100-4500); Lymphocytes Percent Auto 29.4 % (25-40); Mean Corpuscular Hemoglobin 29.8 PG (26-34); Mean Corpuscular Volume 87.6 fL (80-100); Monocytes Absolute Auto 800 /uL (0-900); Monocytes Percent Auto 12.4 % (3-14); Neutrophils Absolute Auto 3600 /uL (1500-7000); Neutrophils Percent Auto 56.2 % (50-75); Platelet Count 237 X10^3/uL (150-400); Red Blood Cell Count 4.25 X10^6/uL (4.5-5.9); White Blood Cell Count 6.3 X10^3/uL (4.5-11.0)
== END ==
PROVIDERS: PCP Nurse Practitioner; Referring Provider Internal Medicine Cardiovascular Disease; Visit Provider Internal Medicine Cardiovascular Disease
DX: E78.49 Other hyperlipidemia (principal); I48.0 Paroxysmal atrial fibrillation
CPT/HCPCS: 36415; 80053; 80061; 85025

== ENCOUNTER → 2022-10-10 08:31 | Outpatient (CLI) | payer MEDICARE, SELFPAY ==
[2022-10-10 10:01] LABS: Add Manual Diff / Slide Review NO; Basophils Absolute Auto 0 /uL (0-100); Basophils Percent Auto 0.2 % (0-2); Eosinophils Absolute Auto 100 /uL (0-450); Eosinophils Percent Auto 1.9 % (2-4); Hematocrit 40.3 % (41-53); Hemoglobin 13.7 g/dL (13.5-17.5); Lymphocytes Absolute Auto 1700 /uL (1100-4500); Lymphocytes Percent Auto 28.3 % (25-40); Mean Corpuscular HGB Conc 33.9 % (30-36); Mean Corpuscular Volume 85.4 fL (80-100); Monocytes Absolute Auto 700 /uL (0-900); Monocytes Percent Auto 11.6 % (3-14); Neutrophils Absolute Auto 3500 /uL (1500-7000); Platelet Count 243 X10^3/uL (150-400); Red Blood Cell Count 4.72 X10^6/uL (4.5-5.9); Red Cell Distribution Width 12.9 % (11.6-14.8)
[2022-10-10 10:18] LABS: Alanine Aminotransferase 25 IU/L (<50); Alkaline Phosphatase 98 U/L (38-126); Aspartate Aminotransferase 31 IU/L (17-59); BUN Creatinine Ratio 16.9 (6-22); Blood Urea Nitrogen 10 mg/dL (9-20); Calcium 9.3 mg/dL (8.4-10.2); Carbon Dioxide 26 mmol/L (22-32); Chloride 101 mmol/L (98-107); Estimated Glomerular Filt Rate > 60 mL/min (>60); Glucose 96 mg/dL (80-110); HEMOLYSIS < 15 (0-50); Magnesium 2.1 mg/dL (1.6-2.3); Potassium 4.1 mmol/L (3.4-5.1); Sodium 135 mmol/L (137-145); Total Protein 7.9 g/dL (6.3-8.2)
[2022-10-11 17:06] LABS: Albumin 4.4 g/dL (3.5-5.0); Albumin Globulin Ratio 1.3 (1.0-2.8); Globulin 3.5 g/dL (1.7-4.1)
== END ==
PROVIDERS: PCP Nurse Practitioner; Referring Provider Nurse Practitioner; Visit Provider Nurse Practitioner
DX: D64.9 Anemia, unspecified (principal); I10 Essential (primary) hypertension; E87.1 Hypo-osmolality and hyponatremia; Z79.01 Long term (current) use of anticoagulants; Z79.899 Other long term (current) drug therapy
CPT/HCPCS: 36415; 80053; 83735; 85025

== ENCOUNTER → 2023-02-28 08:27 | Outpatient (CLI) | payer MEDICARE, SELFPAY ==
[2023-02-28 08:56] LABS: Add Manual Diff / Slide Review NO; Basophils Absolute Auto 0 /uL (0-100); Basophils Percent Auto 0.3 % (0-2); Eosinophils Absolute Auto 200 /uL (0-450); Eosinophils Percent Auto 2.7 % (2-4); Hematocrit 38.5 % (41-53); Hemoglobin 13.2 g/dL (13.5-17.5); Lymphocytes Absolute Auto 2000 /uL (1100-4500); Lymphocytes Percent Auto 30.6 % (25-40); Mean Corpuscular HGB Conc 34.2 % (30-36); Mean Corpuscular Hemoglobin 29.6 PG (26-34); Mean Corpuscular Volume 86.4 fL (80-100); Monocytes Absolute Auto 700 /uL (0-900); Monocytes Percent Auto 10.9 % (3-14); Neutrophils Absolute Auto 3700 /uL (1500-7000); Neutrophils Percent Auto 55.5 % (50-75); Platelet Count 246 X10^3/uL (150-400); Red Blood Cell Count 4.46 X10^6/uL (4.5-5.9); Red Cell Distribution Width 12.8 % (11.6-14.8); White Blood Cell Count 6.6 X10^3/uL (4.5-11.0)
[2023-02-28 09:16] LABS: Alanine Aminotransferase 24 IU/L (<50); Albumin 4.1 g/dL (3.5-5.0); Albumin Globulin Ratio 1.3 (1.0-2.8); Alkaline Phosphatase 94 U/L (38-126); Aspartate Aminotransferase 29 IU/L (17-59); BUN Creatinine Ratio 11.3 (6-22); Bilirubin Total 0.6 mg/dL (0.2-1.3); Blood Urea Nitrogen 7 mg/dL (9-20); Calcium 9.1 mg/dL (8.4-10.2); Carbon Dioxide 27 mmol/L (22-32); Chloride 103 mmol/L (98-107); Cholesterol 147 mg/dL (140-199); Estimated Glomerular Filt Rate > 60 mL/min (>60); Globulin 3.1 g/dL (1.7-4.1); Glucose 103 mg/dL (80-110); HDL Cholesterol 38 mg/dL (40-60); HEMOLYSIS < 15 (0-50); LDL Cholesterol Calculated 86 mg/dL (<100); Potassium 4.2 mmol/L (3.4-5.1); Sodium 136 mmol/L (137-145); Total Protein 7.2 g/dL (6.3-8.2); Triglycerides 114 mg/dL (35-150)
== END ==
PROVIDERS: PCP Nurse Practitioner; Referring Provider Internal Medicine Cardiovascular Disease; Visit Provider Internal Medicine Cardiovascular Disease
DX: Z79.01 Long term (current) use of anticoagulants (principal); E78.49 Other hyperlipidemia
CPT/HCPCS: 36415; 80053; 80061; 85025

== ENCOUNTER → 2023-04-24 11:08 | Outpatient (CLI) | payer MEDICARE, SELFPAY ==
--- NOTE | 2023-04-24 11:11 | DI.RAD.S_ITS ---
PROCEDURE: XR HIP W PEL IF DONE AWA MIN 4V INDICATIONS: chronic pain in right SI joint and right hip TECHNIQUE: AP pelvis with lateral view(s) of the bilateral hip(s). COMPARISON: [facility], , XR HIP W PEL IF DONE RT 2V, 07/18/2020, 8:50. FINDINGS: Bones: No fractures or dislocations. Pelvic ring appears intact. No suspicious bony lesions. Advanced degenerative arthritis of the right hip with large osteophytes and joint space obliteration. Moderate to severe left hip degenerative arthritis with moderate to severe joint space loss and smaller osteophytes. Soft tissues: The visualized bowel gas pattern is normal. No suspicious soft tissue calcifications. IMPRESSION: 1. Advanced degenerative arthritis of the right hip. 2. Moderate to severe left hip degenerative arthritis. Dictated by: Mauri Marshall M.D. on 04/24/2023 at 13:05 Approved by: Mauri Marshall M.D. on 04/24/2023 at 13:06
== END ==
PROVIDERS: PCP Nurse Practitioner; Referring Provider Nurse Practitioner; Visit Provider Nurse Practitioner
DX: M16.0 Bilateral primary osteoarthritis of hip (principal); M53.3 Sacrococcygeal disorders, not elsewhere classified; M25.551 Pain in right hip
CPT/HCPCS: 73522

== ENCOUNTER → 2023-08-26 08:20 | Outpatient (CLI) | payer MEDICARE, SELFPAY ==
[2023-08-26 09:12] LABS: Add Manual Diff / Slide Review NO; Basophils Absolute Auto 0 /uL (0-100); Basophils Percent Auto 0.2 % (0-2); Eosinophils Absolute Auto 200 /uL (0-450); Eosinophils Percent Auto 2.9 % (2-4); Hematocrit 37.5 % (41-53); Hemoglobin 12.8 g/dL (13.5-17.5); Lymphocytes Absolute Auto 1900 /uL (1100-4500); Lymphocytes Percent Auto 28.4 % (25-40); Mean Corpuscular Hemoglobin 29.3 PG (26-34); Monocytes Absolute Auto 700 /uL (0-900); Monocytes Percent Auto 11.1 % (3-14); Neutrophils Absolute Auto 3800 /uL (1500-7000); Neutrophils Percent Auto 57.4 % (50-75); Platelet Count 228 X10^3/uL (150-400); Red Blood Cell Count 4.37 X10^6/uL (4.5-5.9); Red Cell Distribution Width 13.5 % (11.6-14.8); White Blood Cell Count 6.6 X10^3/uL (4.5-11.0)
[2023-08-26 09:25] LABS: Hemoglobin A1C% w Est Avg Glu 6.1 % (4.0-6.0)
[2023-08-26 09:56] LABS: Appearance Urine UA CLEAR; Bilirubin Urine UA NEGATIVE (NEGATIVE); Color Urine UA YELLOW; Glucose Urine UA NEGATIVE (Negative); Ketones Urine UA NEGATIVE (NEGATIVE); Leukocyte Esterase Urine UA NEGATIVE (NEGATIVE); Nitrite Urine UA NEGATIVE (Negative); Occult Blood Urine UA NEGATIVE (Negative); Protein Urine UA NEGATIVE (Negative); Urobilinogen Urine UA 0.2 E.U./dL (0.2)
[2023-08-26 10:01] LABS: Alanine Aminotransferase 21 IU/L (<50); Albumin Globulin Ratio 1.3 (1.0-2.8); Alkaline Phosphatase 79 U/L (38-126); Aspartate Aminotransferase 28 IU/L (17-59); BUN Creatinine Ratio 19.4 (6-22); Bilirubin Total 0.8 mg/dL (0.2-1.3); Blood Urea Nitrogen 13 mg/dL (9-20); Calcium 9.4 mg/dL (8.4-10.2); Carbon Dioxide 26 mmol/L (22-32); Chloride 105 mmol/L (98-107); Estimated Glomerular Filt Rate > 60 mL/min (>60); Globulin 3.2 g/dL (1.7-4.1); Glucose 100 mg/dL (80-110); HEMOLYSIS < 15 (0-50); Potassium 4.3 mmol/L (3.4-5.1); Sodium 138 mmol/L (137-145); Total Protein 7.2 g/dL (6.3-8.2)
[2023-08-26 10:05] LABS: Bacteria Urine Occasional (0-1); Culture Indicated Urine Cult Not Indicated; RBC Urine None Seen (0-5/HPF); Squamous Epithelial Cell Urine 0-1 /HPF (0-5/HPF); WBC Urine None Seen (0-5/HPF)
== END ==
PROVIDERS: PCP Nurse Practitioner; Referring Provider Orthopaedic Surgery; Visit Provider Orthopaedic Surgery
DX: Z01.818 Encounter for other preprocedural examination (principal); R73.9 Hyperglycemia, unspecified; Z01.812 Encounter for preprocedural laboratory examination; N39.0 Urinary tract infection, site not specified; Z79.01 Long term (current) use of anticoagulants
CPT/HCPCS: 36415; 80053; 81001; 83036; 85025; 93005

== ENCOUNTER → 2023-10-15 10:50 | Outpatient (CLI) | payer MEDICARE, SELFPAY ==
[2023-10-15 11:55] LABS: Add Manual Diff / Slide Review NO; Basophils Absolute Auto 0 /uL (0-100); Basophils Percent Auto 0.3 % (0-2); Eosinophils Absolute Auto 100 /uL (0-450); Eosinophils Percent Auto 1.8 % (2-4); Hematocrit 37.6 % (41-53); Lymphocytes Absolute Auto 2200 /uL (1100-4500); Lymphocytes Percent Auto 30.4 % (25-40); Mean Corpuscular HGB Conc 34.5 % (30-36); Mean Corpuscular Hemoglobin 29.8 PG (26-34); Mean Corpuscular Volume 86.5 fL (80-100); Monocytes Absolute Auto 900 /uL (0-900); Neutrophils Absolute Auto 3900 /uL (1500-7000); Neutrophils Percent Auto 54.5 % (50-75); Platelet Count 232 X10^3/uL (150-400); Red Blood Cell Count 4.35 X10^6/uL (4.5-5.9); Red Cell Distribution Width 13.5 % (11.6-14.8); White Blood Cell Count 7.2 X10^3/uL (4.5-11.0)
[2023-10-15 12:08] LABS: HEMOLYSIS < 15 (0-50); Iron 109 ug/dL (49-181)
[2023-10-15 12:10] LABS: BUN Creatinine Ratio 20.3 (6-22); Blood Urea Nitrogen 14 mg/dL (9-20); Carbon Dioxide 24 mmol/L (22-32); Chloride 104 mmol/L (98-107); Estimated Glomerular Filt Rate > 60 mL/min (>60); HEMOLYSIS < 15 (0-50); Potassium 4.1 mmol/L (3.4-5.1); Sodium 137 mmol/L (137-145)
[2023-10-15 12:11] LABS: Alanine Aminotransferase 21 IU/L (<50); Albumin 4.2 g/dL (3.5-5.0); Albumin Globulin Ratio 1.2 (1.0-2.8); Alkaline Phosphatase 79 U/L (38-126); Aspartate Aminotransferase 28 IU/L (17-59); Calcium 9.6 mg/dL (8.4-10.2); Globulin 3.5 g/dL (1.7-4.1); Glucose 95 mg/dL (80-110); Total Protein 7.7 g/dL (6.3-8.2)
[2023-10-15 12:19] LABS: Hemoglobin A1C% w Est Avg Glu 5.7 % (4.0-6.0); Percent Iron Saturation 37 % (20-50); Total Iron Binding Capacity 292 ug/dL (261-462); Transferrin 246 mg/dL (206-381)
[2023-10-15 12:58] LABS: Vitamin B12 546 pg/mL (239-931)
== END ==
PROVIDERS: PCP Nurse Practitioner; Referring Provider Nurse Practitioner; Visit Provider Nurse Practitioner
DX: D64.9 Anemia, unspecified (principal); R73.03 Prediabetes
CPT/HCPCS: 36415; 80053; 82607; 83036; 83540; 83550; 85025

== ENCOUNTER 2023-10-23 06:27 | Day surgery (SDC) | payer MEDICARE, SELFPAY ==
[2023-10-16 08:11] VITALS: BMI 27.8
[2023-10-23] VITALS (17 sets, daily range): BP systolic 128–157; BP diastolic 69–87; PULSE 68–89; RESP 11–23; TEMP 36.4–36.8; O2SAT 94–98; BMI 27.8
[2023-10-23] MEDS: LACTATED RINGERS 1,000 ML 84 ML IV (07:11)
[2023-10-23] MEDS: ACETAMINOPHEN 325 MG TABLET 975 MG PO (07:23)
--- NOTE | 2023-10-23 07:36 | DI.RAD.S_ITS ---
PROCEDURE: XR HIP W PEL IF DONE RT 2V INDICATIONS: INNER OP TECHNIQUE: 4 operative view(s) of the hip acquired. COMPARISON: [facility], CR, XR HIP W PEL IF DONE AWA 3TO4V, 04/24/2023, 11:17. FINDINGS: Imaging provided during total right hip arthroplasty with no radiographic evidence of complications. IMPRESSION: Operative imaging utilized during total right hip arthroplasty. Dictated by: Mauri Marshall M.D. on 10/23/2023 at 13:28 Approved by: Mauri Marshall M.D. on 10/23/2023 at 13:29
--- NOTE | 2023-10-23 07:38 | P.OP_ITS ---
Operative Date/Time/Diagnoses Date of procedure: 10/23/23 Time of procedure: 08:10 Pre-op diagnosis: right hip OA Post-op diagnosis: same Procedure & Clinicians Procedure: right total hip arthroplasty Same procedure as scheduled: Yes Indications: The patient has had progressively worsening right hip pain with radiographic changes consistent with arthritis. Non-operative management has failed and the patient has requested total hip replacement. The risks, benefits and alternatives to surgery were discussed with the patient prior to proceeding. Risks discussed included, but were not limited to, failure to relieve pain, leg length discrepancy, dislocation, stiffness, infection, nerve damage, deep venous thrombosis, pulmonary embolism, stroke, coma, heart attack, permanent paralysis and , as well as the potential need for eventual revision of the prosthetic. Surgeon: Vanessa Bowles Family Readiness Support Assistant: Rossi Gaines Anesthesia Type: Spinal Operative Notes Findings: Severe right hip OA, adequate stability Closure Type: primary Specimen(s): none sent Prosthetic devices, grafts, tissues, transplants, or devices: Bowles and nephew R3 54, neutral poly liner,one 6.5 mm screw, polar standard offset 3, 36 by -3 COCr Estimated Blood Loss (mL): 250 Blood products transfused: none Procedure in detail: The patient was brought to the operating room. Patient was carefully positioned in the supine position. Time-out was performed and antibiotics were given. Anesthesia was induced. He was positioned in the on the table in order to allow hyperextension of the hip. The right lower extremity was prepped and draped in a standard sterile fashion. An anterior right hip incision was made 1 fingerbreadth lateral to the anterior superior iliac spine and extended distally towards the greater trochanter. Dissection was carried out through skin and subcutaneous tissues. Superficial hemostasis was achieved. The fascia over the tensor fascia selma was defined and incised with a knife. Two Allis clamps were used to grasp the fascia. Tensor fascia selma was retracted laterally. A gelpi retractor was placed. Dissection was carried out down along the neck. The circumflex vessels were carefully identified and cauterized with the Aqua Mantis. A PA was used during the procedure and was essential for intraoperative retraction and safe implantation of the components. They were helpful for establishing hemostasis and adequate visualization and retraction. There was good visualization of the femoral neck. A Cobra was placed superior to the neck and the gluteus fibers were carefully stripped from that superior aspect of the capsule. A 2nd retractor was placed along the inferior aspect of the neck. The rectus insertion along the capsule was partially released. A 3rd retractor that was then gently placed over the rim of the acetabulum under the rectus. Capsule was carefully incised and released from the intertrochanteric line circumferentially superior to the mid sagittal line and inferiorly to the mid sagittal line until the lesser trochanter was palpable. A tag stitch was placed both in the superior and inferior limb of the capsular insertion. Along the acetabulum capsule was also released up to the mid sagittal 12:00 position. A portion of the labrum was resected. A saw was used to perform an osteotomy at the level of the intertrochanteric line and the junction of the superior femoral neck leaving approximately 1 finger breath of residual inferior neck above the lesser trochanter. A 2nd cut was made along the femoral neck at the base of the head and a napkin ring of neck was removed. Corkscrew was placed in the femoral head and the head was removed without difficulty. Retractors were then repositioned around the acetabulum. Residual labrum was resected and additional osteophytes were removed. A reamer that was 4 mm below the templated size was placed by hand in the acetabulum and it was reamed to centralize the acetabulum. It was then reamed up to 2 under the templated size and fluoroscopy was brought in to confirm the position of the reaming and depth of reaming. I reamed 1 under the anticipated size. A trial cup was placed and noted that it was appropriately sized and fluoroscopy confirmed position and depth. The component was open and inserted without difficulty fluoroscopic imaging was used to confirm that the cup had been adequately seated and was well positioned. It was further stabilized with a single screw. Neutral poly trial liner was placed. The cup was tested and noted to be stable. Attention was then directed to the femur. The femur was gently hyperextended additional capsular release was performed as needed in order to allow adequate visualization of the proximal femur with elevation of the femur. Patient was placed in a hyperextended slightly adducted position with maximum external rotation. Box osteotome was used to check for any residual neck as well as sclerotic bone along the trochanter. Purvis pepper was placed in the femur. Additional broaching was performed. Canal finder was used to determine the alignment of the canal and position. Size 1 broach was placed. The canal was then appropriately broached up to the templated size as long as there was adequate stability of the broach and serial advancement of the broach without excessive impingement. Specific attention was directed at avoiding varus attempting to direct the distal aspect of the broach more anteriorly and avoiding excessive anteversion. Trial reduction showed acceptable range of motion, good stability, no posterior impingement, jehovah's witness of leg length and appropriate lateral shuck. I also hyperflexed the hip and checked that there was no impingement anteriorly and there was good stability with flexion, adduction and internal rotation. Marcaine and Exparel were injected. The stem was placed without difficulty. Repeat trial reduction and x-ray showed acceptable overall position, length, and no evidence of the femoral fracture. Final head was placed. Wound was meticulously irrigated with normal saline. The hip was reduced and additional Exparel and Marcaine were injected. The capsule was closed with interrupted nonabsorbable sutures. The fascia of the tensor was closed with interrupted and running Vicryl. No drain was placed. Any tensor fascia selma muscle that appeared to be contused or injured which was a minimal amount was carefully resected. Capsule around the tensor was injected with Exparel and Marcaine. The skin was closed with barbed stitches for the subcutaneous tissue and skin. We also used surgical glue. The wound was dressed sterilely. Brief Betadine soak was also used and was meticulously irrigated with normal saline. Patient was transferred to recovery room in satisfactory condition. Complications: none Post-operative Condition: stable Disposition: Acute Care Plan for aftercare: The patient will be maintained on a standard total hip replacement protocol with weight bearing as tolerated and anterior hip precautions. The patient will receive Aspirin and sequential compression devices for DVT prophylaxis. The patient will be discharged home when safe for the home environment.
--- NOTE | 2023-10-23 07:38 | PM.PREOP ---
Pre-operative Note Interval Note History & Physical reviewed/Exam performed by Physician: Yes Changes to H&P: No
[2023-10-23] MEDS: VANCOMYCIN 1,000 MG/200 ML PIGGYBACK 200 MG IV (07:45)
[2023-10-23] MEDS: CEFAZOLIN 2 GM/100 ML PREMIX 100 ML IV ×2 (08:00→18:42)
[2023-10-23] MEDS: TRANEXAMIC ACID 1,000 MG VIAL 1000 MG INJ ×2 (08:05→10:33)
--- NOTE | 2023-10-23 08:34 | SUR.OPER ---
Patient supine on padded [place] table, one arm on padded arm board at <90, other arm padded and secured with tape across patient's chest, both legs secured in padded traction boots and positioned per surgeon, padded post at patient's groin, pressure points checked and padded.
[2023-10-23] MEDS: BUPIVACAINE 0.25% (PF) 60 ML, EPINEPHrine 0.3 MG INJ (08:42)
[2023-10-23] MEDS: LACTATED RINGERS 1,000 ML 42 ML IV (08:45)
[2023-10-23] MEDS: BUPIVACAINE LIPOSOME 266 MG/20 ML VIAL INJ (08:51)
--- NOTE | 2023-10-23 11:00 | DI.RAD.S_ITS ---
PROCEDURE: XR HIP W PEL IF DONE RT 2V INDICATIONS: POST OP ANTERIOR RIGHT HIP TECHNIQUE: AP pelvis and lateral view of the hip acquired. COMPARISON: [facility], JAYLA, XR HIP W PEL IF DONE RT 2V, 10/23/2023, 9:20. FINDINGS: Bones: Patient is status post total right hip arthroplasty, with hardware components in expected positions. The hip joint appears congruent. The visualized bony structures appear intact. Soft tissues: Overlying postoperative changes are noted. No suspicious soft tissue densities. IMPRESSION: Expected immediate postoperative appearance, status post total right hip arthroplasty. Dictated by: Mauri Marshall M.D. on 10/23/2023 at 12:11 Approved by: Mauri Marshall M.D. on 10/23/2023 at 12:11
[2023-10-23] MEDS: HYDROMORPHONE 1 MG INJ IV (11:25)
[2023-10-23] MEDS: OXYCODONE IR 5 MG TABLET PO (11:29)
[2023-10-23] MEDS: hydrOXYzine 50 MG/ML INJ 25 MG IM (11:30)
[2023-10-23] MEDS: LACTATED RINGERS 1,000 ML 100 ML IV (12:08)
[2023-10-23] MEDS: IBUPROFEN 400 MG TABLET PO ×2 (13:44→18:40)
[2023-10-23] MEDS: ACETAMINOPHEN 325 MG TABLET 650 MG PO ×2 (13:44→18:43)
--- NOTE | 2023-10-23 14:25 | OT.IP.EVAL ---
Current Diagnoses Unilateral primary osteoarthritis, right hip (10/23/23) Surgery Performed Operation Date: 10/23/23 07:45 Actual Procedures p Total Hip Arthroplasty/Anterior(Right) - Vanessa Bowles MD Past Medical History (Last Updated 10/16/23 @ 09:13 by Ledy Johnson, RN) A-fib Anemia Anxiety BCC (basal cell carcinoma of skin) Chronic anticoagulation Chronic atrial fibrillation Chronic right SI joint pain Colon polyps (05/18/09) Gait abnormality History of cardioversion (07/2017) History of syncope Hyperlipidemia Hypertension Melanoma (2010) Non-rheumatic mitral regurgitation Nonrheumatic aortic valve insufficiency Pre-diabetes Psoriasis (2010) Right hip pain Right leg pain SCCA (squamous cell carcinoma) of skin Surgical History (Last Updated 10/16/23 @ 09:10 by Ledy Johnson RN) History of colonoscopy with polypectomy (05/18/09) History of colonoscopy with polypectomy (04/15/17) History of left cataract surgery (01/20/18) History of melanoma excision (2010) History of melanoma excision (2015) History of radiofrequency ablation procedure for cardiac arrhythmia History of right cataract surgery (01/06/18) History of vasectomy (1987) Hx of lymph node excision Hx of oral surgery Hx of tonsillectomy Occupational Therapy Inpatient Evaluation/Re-Eval M1 PT/OT-IP Prior Functional Status Start: 10/23/23 15:13 Freq: NEEDED Status: Active Protocol: Document 10/23/23 15:13 [facility] (Rec: 10/23/23 15:26 [facility] [id number]) Medical Review Prior Functional Status Communication Independent Mobility and Gait Had pain when up and limited his walking but did not use a device Activities of Daily Living and IADL's Independent with ADL and IADl needs. Social History Household Members spouse Living Arrangements House Number of Floors (Floors) Two Floors Number of Stairs To Enter/Railing? Pt has no steps to get into the house and can stay on the main level. Home Environment High Toilet,Walk in Shower,Tub /Shower Home Equipment Front Wheel Walker,Grab Bars In Shower Additional Social History Comment Pt has a supportive to assist pt at home. M2 OT-IP Current Condition Start: 10/23/23 15:13 Freq: Status: Active Protocol: Document 10/23/23 15:13 [facility] (Rec: 10/23/23 15:26 [facility] [id number]) Occupational Therapy Current Condition Current Condition Evaluation Date 10/23/23 Treatment Diagnosis S/P R GLEN Diagnosis Onset Date 10/23/23 Post Operative Precautions Anterior Hip Precautions No Hip Extension,No Hip External Rotation M3 OT- IP Subjective and Pain Start: 10/23/23 15:13 Freq: Status: Active Protocol: Document 10/23/23 15:13 [facility] (Rec: 10/23/23 15:26 [facility] [id number]) OT- Subjective Occupational Therapy Visit Type Type Initial Evaluation Visit Start Time 13:45 Visit Stop Time 14:25 Occupational Therapy Visit Comments Patient Comments Pt after encouragement, pt agreed to get up. Patient/Caregiver Goals TO go home. OT Pain Assessment Pain When Pain Assessed At Rest Pain Present Pain Present Pain Reported Location Right Hip Intensity 2 Scale Used Numeric (0 - 10) M4 OT- IP ADL's Start: 10/23/23 15:13 Freq: Status: Active Protocol: Document 10/23/23 15:13 [facility] (Rec: 10/23/23 15:26 [facility] [id number]) OT [id number] Comments OT Self-Feeding Comments Not at meal time. OT ADL-Grooming Comments OT Grooming Comments Not performed. OT ADL-Oral Care Comments Oral Care Comments Not performed. OT ADL-Dressing General Eval Lower Body Dressing Ability Maximum Assistance Areas Needing Assistance Socks Comments OT Dressing Comments Educated pt to be sure not to externally rotate and cross his RLE over while getting his socks and shoes on. Pt's states will assist him otherwise will benefit from LB dressing equipment. OT ADL-Toileting Comments OT Toileting Comments Pt not having to go at this time. OT ADL-Bathing Comments OT Bathing Comments Pt will benefit from a HHSP and shower chair to use at home. Educated pt of dressing needs while showering. M5 OT- IP IADL's Start: 10/23/23 15:13 Freq: Status: Active Protocol: Document 10/23/23 15:13 [facility] (Rec: 10/23/23 15:26 [facility] [id number]) OT-Instrumental Activities of Daily Living Deficits IADL Deficits Identified Deficits Home Safety Awareness Awareness of Need for Assistance at Home Good Awareness Ability to Problem Solve Emergency Able to Problem Solve Situations Medication Management Medication Management Comments Pt a little groggy at this time and will benefit from his to assist. Money Management Money Management Comments Pt a little groggy at this time and will benefit from his to assist. Meal Preparation Meal Preparation Caregiver Provides Assist News Library Director News Library Director Caregiver Provides Assist M6 OT- IP Functional Cognition Start: 10/23/23 15:13 Freq: Status: Active Protocol: Document 10/23/23 15:13 [facility] (Rec: 10/23/23 15:26 [facility] [id number]) Cognitive Factors Limiting Selfcare Function Cognitive Ability Level of Alertness Alert,Drowsy Patient Orientation Name,Age,Birthday,Month,Date, Year,Day of Week,Place, Situation Attention Span Ability Capable of Focused Attention, Capable of Sustained Attention Ability to Follow Commands Able to Follow One Step Commands with Increased Time, Able to Follow One Step Commands with Repetition Safety Awareness Decreased Ability to Apply Precautions Cognitive Comments Cognitive Assessment Comments Pt a bit groogy and getting posterior and anterior precautions mixed up and needing reminders to incorporate his anterior precautions for mobility needs . OT- Vision and Hearing OT- Vision Assessment Visual Acuity Glasses For Reading Visual Attentiveness WFL Occular Pursuits WFL M7 OT- IP Mobility and Balance Start: 10/23/23 15:13 Freq: Status: Active Protocol: Document 10/23/23 15:13 [facility] (Rec: 10/23/23 15:26 [facility] [id number]) OT- Bed Mobility Assessment Supine to Sit Supine to Sit Assist Standby Assistance Sit to Supine Sit to Supine Assist Standby Assistance OT-Transfer Assessment Sit to and From Stand Sit to and from Stand Contact Guard Assistance Transfers Transfer Ability Contact Guard Assistance Technique Transfer Destination Bed,Chair Transfer Technique Stand Step Pivot Devices Transfer Assistive Devices Gait Belt,Front Wheeled Walker Comments Mobility Comments BP [id number], sitting 159/ 81, and standing 150/89 , O2 on RA 100%. Pt able to get up with SBA and good safety not to externally rotate his right leg. Able to stand with CGA and vc to tighten his quads and able to walk around the bed to sit to the recliner. Able to educated his to hiwot/doff the gait belt and assist pt to walk. Pt at times crosses his feet and needing reminders to keep his feet apart. Pt's states the bathroom is 35ft away from the bed at home. OT- Balance Assessment Sitting Balance and Reactions Static Sitting Balance Ability Normal Dynamic Sitting Balance Ability Good Standing Balance and Reactions Static Standing Balance Ability Good Dynamic Standing Balance Ability Fair M8 OT- IP Objective Assessments Start: 10/23/23 15:13 Freq: Status: Active Protocol: Document 10/23/23 15:13 [facility] (Rec: 10/23/23 15:26 [facility] [id number]) OT Gross Range of Motion Upper Extremity Range of Motion Assessment Within Functional Limits OT Strength Upper Extremity Strength Assessment Within Functional Limits M9 OT- IP Assessment and Plan Start: 10/23/23 15:13 Freq: Status: Active Protocol: Document 10/23/23 15:13 [facility] (Rec: 10/23/23 15:26 [facility] [id number]) OT Summary Assessment and Plan Potential Rehabilitation Potential Excellent Analytic Complexity at Evaluation Low Summary OT Impairments Pain,Balance,Functional Mobility,Grooming,Dressing, Toileting,Bathing,Toilet Transfers,Shower Transfers, Activity Tolerance Progress Towards Goals Progressing Toward Goals Assessment Summary Pt low complexity and main barriers are pt a bit groggy, needing cues to follow his hip precautions , and just able to tolerate walking around the bed before having to sit down . Able to initiate education with pt's regarding hiwot/ doff the gait belt, and how to assist pt to walk with the fww and how to assist for ADL needs. Pt to go home with assist when medically stable. Goals Self-Feeding Goal Independent Grooming Goal Independent Dressing Goal Independent,Minimal Assistance Toileting Goal Independent Bathing Goal Independent Toilet Transfer Goal Independent Shower Transfer Goal Independent Patient/Caregiver Education Goal Caregiver Independent Assisting Patient Days to Meet Goals 7 Frequency of Treatment Frequency Of Treatment Once a Day Treatment Plan OT Treatment Plan ADL Training,Functional Mobility,Patient/Family Education,Discharge Planning Discharge Recommendations OT Discharge Recommendations Home with Assistance, Outpatient PT Home Equipment Needs Shower chair, HHPS, LB dressing equipment as needed Transportation Needs at Discharge Private Vehicle
--- NOTE | 2023-10-23 17:42 | PT.IIE ---
Current Diagnoses Unilateral primary osteoarthritis, right hip (10/23/23) Surgery Performed Operation Date: 10/23/23 07:45 Actual Procedures p Total Hip Arthroplasty/Anterior(Right) - Vanessa Bowles MD Surgical History (Last Updated 10/16/23 @ 09:10 by Ledy Johnson, RN) History of colonoscopy with polypectomy (05/18/09) History of colonoscopy with polypectomy (04/15/17) History of left cataract surgery (01/20/18) History of melanoma excision (2010) History of melanoma excision (2015) History of radiofrequency ablation procedure for cardiac arrhythmia History of right cataract surgery (01/06/18) History of vasectomy (1987) Hx of lymph node excision Hx of oral surgery Hx of tonsillectomy Medical History (Last Updated 10/16/23 @ 09:13 by Ledy Johnson, JOSE ROBERTO) A-fib Anemia Anxiety BCC (basal cell carcinoma of skin) Chronic anticoagulation Chronic atrial fibrillation Chronic right SI joint pain Colon polyps (05/18/09) Gait abnormality History of cardioversion (07/2017) History of syncope Hyperlipidemia Hypertension Melanoma (2010) Non-rheumatic mitral regurgitation Nonrheumatic aortic valve insufficiency Pre-diabetes Psoriasis (2010) Right hip pain Right leg pain SCCA (squamous cell carcinoma) of skin Physical Therapy Inpatient Evaluation/Re-Eval M1 PT/OT-IP Prior Functional Status Start: 10/23/23 15:13 Freq: NEEDED Status: Active Protocol: Document 10/23/23 15:13 [facility] (Rec: 10/23/23 15:26 [facility] [id number]) Medical Review Prior Functional Status Communication Independent Mobility and Gait Had pain when up and limited his walking but did not use a device Activities of Daily Living and IADL's Independent with ADL and IADl needs. Social History Household Members spouse Living Arrangements House Number of Floors (Floors) Two Floors Number of Stairs To Enter/Railing? Pt has no steps to get into the house and can stay on the main level. Home Environment High Toilet,Walk in Shower,Tub /Shower Home Equipment Front Wheel Walker,Grab Bars In Shower Additional Social History Comment Pt has a supportive to assist pt at home. M2 PT-IP Current Condition Start: 10/23/23 17:11 Freq: NEEDED Status: Active Protocol: Document 10/23/23 17:13 KJ (Rec: 10/23/23 17:23 KJ [id number]) Physical Therapy Current Condition Current Condition Evaluation Date 10/23/23 Treatment Diagnosis Impaired mobility Onset Date 10/23/21 M3 PT-IP Subjective Start: 10/23/23 17:11 Freq: NEEDED Status: Active Protocol: Document 10/23/23 17:13 KJ (Rec: 10/23/23 17:23 KJ [id number]) Subjective Physical Therapy Visit Type Type Initial Evaluation Visit Start Time 15:43 Visit Stop Time 16:13 Physical Therapy Visit Comments Patient Comments Pt reports no pain Patient Goals Good healing Therapy Pain Assessment Pain When Pain Assessed At Rest Pain Present Pain Present Denied Pain Location Right Hip Scale Used Numeric (0 - 10) M4 PT-IP Mobility and Gait Start: 10/23/23 17:11 Freq: NEEDED Status: Active Protocol: Document 10/23/23 17:13 KJ (Rec: 10/23/23 17:23 KJ [id number]) PT-Bed Mobility Assessment Sit to Supine Sit to Supine Minimal Assistance PT-Transfer Assessment Sit to and From Stand Sit to and from Stand Standby Assistance Equipment Transfer Assistive Device Gait Belt,Front Wheeled Walker Orthotic/Prosthetic Devices or Brace: No Gait Assessment Gait Gait Assistance Required: Standby Assistance Distance (Feet) 20 Able to Maintain Weight Bearing Status Yes During Gait Assistive Devices Assistive Device Gait Belt,Front Wheeled Walker Orthotic/Prosthetic Devices or Brace: No Comments Gait Comments Decreased ankle ROM on R when ambulating, guarded movement in RLE PT-Balance Assessment Sitting Balance and Reactions Static Sitting Balance Ability Normal Dynamic Sitting Balance Ability Normal Standing Balance and Reactions Static Standing Balance Ability Good Dynamic Standing Balance Ability Good M5 PT-IP Objective Assessments Start: 10/23/23 17:11 Freq: NEEDED Status: Active Protocol: Document 10/23/23 17:13 KJ (Rec: 10/23/23 17:23 KJ [id number]) Orientation Orientation/Cognition Level of Alertness Alert Orientation Name,Age,Birthday,Date Language Function Ability Hard of Hearing Safety Awareness Understands Safety Issues Comments Pt reports feeling tired [place]URG - has hearing aids Gross Range of Motion Lower Extremity ROM Assessment Right Impaired Impairments hip limited, normal knee and ankle Strength Lower Extremity Strength Assessment Right Impaired Hip due to surgery today Knee WFL Ankle WFL M6 PT-IP Treatment Start: 10/23/23 17:11 Freq: NEEDED Status: Active Protocol: Document 10/23/23 17:13 KJ (Rec: 10/23/23 17:23 KJ [id number]) Physical Therapy Treatment Exercises Exercises Ankle Pumps,Gluteal Sets,Quad Sets Education Education Provided Precautions,Weight Bearing Status,Safety Other Treatments Other Treatment Performed gait training: instructed pt on safety during ambulation and transfers, also instructed Basim7 PT-IP Assessment and Plan Start: 10/23/23 17:11 Freq: NEEDED Status: Active Protocol: Document 10/23/23 17:13 KJ (Rec: 10/23/23 17:23 KJ [id number]) PT Summary Assessment and Plan Potential Rehabilitation Potential Excellent Status of Condition at Evaluation Stable Summary Impairments ROM,Strength,Bed Mobility, Transfers,Gait Assessment Summary Gait slow and steady Goals Bed Mobility Goal Independent Transfer Goal Standby Assistance Gait Goal Standby Assistance Gait Distance 50' Other Goals ascend/descend 3 steps with rail Days to Meet Goals 2 Frequency of Treatment Frequency Of Treatment Twice a Day Treatment Plan Physical Therapy Treatment Plan Bed Mobility Training,Transfer Training,Gait Training, Therapeutic Exercise Other Recommendations and Next Treatment Progress distance of Focus ambulation, progress to stairs Precautions Anterior Hip Precautions No Hip Extension,No Hip External Rotation Weight Bearing Status Weight Bearing Status Weight Bear as Tolerated Recommendations To Nursing Amount of Assist Needed 1 Person Assist Discharge Recommendations PT Discharge Recommendations Home with Assistance Transportation Needs at Discharge Private Vehicle
[2023-10-23] MEDS: ASPIRIN EC 81 MG TABLET PO (22:00)
[2023-10-23] MEDS: DOCUSATE 100 MG CAPSULE PO (22:00)
[2023-10-24] MEDS: CEFAZOLIN 2 GM/100 ML PREMIX 100 ML IV (03:00)
[2023-10-24] MEDS: LACTATED RINGERS 1,000 ML 100 ML IV (03:44)
[2023-10-24 06:14] LABS: Hematocrit 30.1 % (41-53); Hemoglobin 10.6 g/dL (13.5-17.5)
--- NOTE | 2023-10-24 07:22 | P.DS_ITS ---
History of Present Illness History of Present Illness Chief complaint: OPB Narrative: Meliton is a pleasent 77 year old male who is POD#1 s/p R GLEN with Dr. Bowles. at bedside during interview today. Reports he is doing well overall. Pain is mild-moderate and well controlled with his prescribed oral pain medication. Has been able to get up and walk around his room with the assistance of his , urinating on his own. Has walker for post- op use and is willing/able to provide assistance to patient at home in the post-op period. Answered all patient questions regarding post-op instructions in regards to weight bearing status, hip precautions and dressing care. Denies chest pain, SOB, nausea, vomiting, fever, chills. Operative Date/Time/Diagnoses Date of procedure: 10/23/23 Time of procedure: 08:10 Pre-op diagnosis: right hip OA Post-op diagnosis: same Procedure & Clinicians Procedure: right total hip arthroplasty Same procedure as scheduled: Yes Indications: The patient has had progressively worsening right hip pain with radiographic changes consistent with arthritis. Non-operative management has failed and the patient has requested total hip replacement. The risks, benefits and alternatives to surgery were discussed with the patient prior to proceeding. Risks discussed included, but were not limited to, failure to relieve pain, leg length discrepancy, dislocation, stiffness, infection, nerve damage, deep venous thrombosis, pulmonary embolism, stroke, coma, heart attack, permanent paralysis and , as well as the potential need for eventual revision of the prosthetic. Surgeon: Vanessa Bowles Employment Coordinator: Rossi Gaines Anesthesia Type: Spinal Discharge Providers Provider Discharge Date: 10/24/23 Primary care physician: MONA Martinez Consults: 10/23/23 07:34 Consult to Anesthesiology Routine Comment: Consulting Provider: Anesthesiologist Reason for consultation: Regional block for post operative pain control 10/23/23 12:08 Consult to Discharge Planning Routine Comment: Consult to Occupational Therapy Evaluate & Treat Comment: Physician Instructions: Evaluate and treat Consult to Physical Therapy Evaluate & Treat Comment: Physician Instructions: post op GLEN protocol Discharge provider: Rossi Gaines PA-C Summary Hospital Course Discharge Diagnosis: right hip OA s/p right total hip arthroplasty Hospital Course: Uncomplicated hospital course Exam Vital Signs (past 8 hours): Oxygen Delivery Method Nasal Cannula Oxygen Flow Rate 0 Const General: cooperative, healthy appearing and comfortable Resp Effort & Inspection: normal respiratory effort and able to speak in complete sentences Cardio Rate: regular rate Skin Other: Clean and dry Aquacel dressing in place over patients right anterior hip. Small amount of ecchymosis surrounding dressing. Neuro General: patient alert, patient awake and patient oriented x3 Extrem Other: 5/5 strength wtih PF, DF, EHL, knee extension and flexion. Sensation intact through out the entire RLE. Calves soft and non-tender. Objective Labs 10/24/23 05:15 Labs: Laboratory Results - last 24 hr 10/24/23 05:15 Hgb 10.6 L Hct 30.1 L [facility] Medical History (Updated 10/16/23 @ 09:13 by Ledy Johnson RN) Anxiety History of syncope History of cardioversion (07/2017) Nonrheumatic aortic valve insufficiency Non-rheumatic mitral regurgitation Pre-diabetes Anemia Chronic right SI joint pain Chronic atrial fibrillation Gait abnormality Right leg pain Right hip pain Chronic anticoagulation Colon polyps (05/18/09) SCCA (squamous cell carcinoma) of skin BCC (basal cell carcinoma of skin) Melanoma (2010) Hyperlipidemia Hypertension Psoriasis (2010) A-fib Surgical History (Updated 10/16/23 @ 09:10 by Ledy Johnson RN) Hx of oral surgery Hx of lymph node excision Hx of tonsillectomy History of radiofrequency ablation procedure for cardiac arrhythmia History of left cataract surgery (01/20/18) History of right cataract surgery (01/06/18) History of colonoscopy with polypectomy (04/15/17) History of colonoscopy with polypectomy (05/18/09) History of melanoma excision (2015) History of melanoma excision (2010) History of vasectomy (1987) Family History Father Cancer Grandfather Stroke Mother Heart disease Grandmother Cancer Grandfather Stroke Grandmother Stroke Sister No problems noted. Social History household members: spouse Smoking Status: Never smoker second hand exposure: No alcohol intake: current substance use type: does not use Discharge Assessment & Plan Assessment and Plan Assessment: Stable s/p R GLEN Plan of Treatment: Okay to d/c today pending PT evaluation. Maintain standard total hip replacement protocol with weight bearing as tolerated and anterior hip precautions. Continue multimodal pain management with ice and oral medications. Continue ASA BID fr DVT prophylaxis. Continue to work on mobility with outpatient PT Follow up with [facility] in 2 weeks Keep dressing intact until 2 week follow up appt, keep dressing clean and dry. NO soaking the incision site in pools or tubs. No topical ointments or creams to the incision site. Discharge Plan Discharge Plan Patient Disposition: Home Provider Discharge Comment: Follow up at [facility] in 2 weeks. Work with outpatient PT to continue to improve mobility. Nursing Discharge Comment: Follow up appointment w/ Dr. Bowles in [place] on November 07 @ 10:10. Please arrive 15 mins early. Call for confirmation, cancellation or reschedule: Discharge orders & Medications Discharge Orders: Discharge (Order); Ordered 10/24/23 Ordered By: Rossi Gaines Prescriptions: New docusate sodium 100 mg Capsule 100 mg PO BID PRN (Reason: constipation) Qty: 30 0RF aspirin 81 mg Tablet,Delayed Release (Dr/Ec) 81 mg PO BID Qty: 90 0RF oxycodone 5 mg Tablet 5 mg PO Q4-6H PRN (Reason: Pain, Moderate (4-6)) Qty: 30 0RF ondansetron 4 mg Tablet,Disintegrating 4 mg PO Q4HR PRN (Reason: Nausea) Qty: 30 0RF Continued latanoprost 0.005 % drops 1 drp OPHTH HS Qty: 0 carvedilol 12.5 mg tablet 18.75 mg PO BID Qty: 270 3RF Rx Instructions: must administer with a meal/food lisinopril 40 mg tablet 40 mg PO DAILY Qty: 90 3RF Rx Instructions: Take 1 tab daily for BP, goal <130/80 consistently felodipine 5 mg tablet extended release 24 hr See Rx Instructions .ROUTE .COMPLEX Qty: 90 3RF Dose Instruction: TAKE 1 TABLET(5 MG) BY MOUTH DAILY FOR HYPERTENSION Rx Instructions: TAKE 1 TABLET(5 MG) BY MOUTH DAILY FOR HYPERTENSION atorvastatin 40 mg tablet See Rx Instructions .ROUTE .COMPLEX Qty: 90 3RF Dose Instruction: TAKE 1 TABLET BY MOUTH EVERY DAY AT BEDTIME Patient Comments: Pt takes in am Rx Instructions: TAKE 1 TABLET BY MOUTH EVERY DAY AT BEDTIME clonidine HCl 0.1 mg tablet 0.1 mg PO .every 2 hours PRN (Reason: hypertensive emergency) Patient Comments: Take 1 tab every 2 hours as needed for systolic BP >180. Eliquis 5 mg tablet 5 mg PO BID clonidine [[id number]] 0.1 mg/24 hr patch weekly 1 patch transdermal QWEEK Qty: 12 3RF Rx Instructions: Apply topically to a non-hairy area, rotating sites, weekly for hypertension spironolactone 25 mg tablet 12.5 mg PO DAILY Qty: 90 3RF Rx Instructions: Tale 1/2 tab daily per cardiology acetaminophen 500 mg Tablet 500 mg PO BID-TID PRN (Reason: Pain) Follow up/Referrals: Sydni Garcia ARNP [Primary Care Provider] - Diet/Activity/Treatments Diet: Diet as Tolerated Activity: Weight bearing as tolerated. Follow anterior hip precautions. (Do not step backwards with surgical leg. No hip extension. Do not allow surgical leg to externally rotate (turn outwards).Use a pillow between legs when rolling. Sleep on your surgical side when side lying.) Cold/Heat Therapy: Ice to the hip as needed for pain control Skin/Wound/Dressing Care Report to your healthcare provider any signs of infection, such as:: chills, fever, night sweats, unusual drainage and unusual redness Dressing: Keep dressing intact until 2 week post-op appointment. Keep dressing clean and dry, if dressing becomes saturated or dirty okay to remove and replace with clean and dry gauze and/or call our office. No soaking the incision site in pools or tubs. No topical lotions or creams to the incision site. Visit Report/Discharge Packet Instructions: DI for Hip Replacement, DI for Constipation, How to Prevent Falls, DI for Prescription Opioid Use Stand Alone Forms: Patient Portal/API Discharge Data Primary Care Provider: Sydni Garcia Attending Provider: Vanessa Bowles VTE Deep Vein Thrombosis/Pulmonary Embolism Present on Admission: No
--- NOTE | 2023-10-24 08:26 | CM.DANOTE ---
Initial DCP Assessment Note Reviewed EMR for pt's medical status and updates. Met with pt/spouse at bedside to introduce self and role. Pt found to be sitting upright in bed eating his breakfast, appearing comfortable, stating he is looking forward to discharging home later this morning after he works with therapies. Spouse will transport. Pt states he has a cane and walker at home, has been instructed in using a gait belt to assist with safe home mobility. Payor: Medicare Attending: Vanessa Bowles Pt is a 77 year-old M who is post-op day-1 from a R-hip total arthroplasty surgery. Pt had tried OP conservative measures with no lasting benefit, and his R-hip pain was restricting his mobility and ADL's. Plan is for pt to d/c home today, work with OP PT, and f/u with Ortho in 2-weeks for post-op visit. No needs are indicated for further DCP assistance at this time. Discharge Planning/Care Management CM Discharge Assessment Start: 10/24/23 08:20 Freq: Status: Active Protocol: Document 10/24/23 08:20 DPL (Rec: 10/24/23 08:26 DPL [id number]) Discharge Planning Assessment Assigned Skein Drier JANETTE Ma Advance Directives? Yes Advance Directives on File No History Provided By Patient,Significant Other, Medical Record Expected Length of Stay 1 Has Patient been admitted in last 30 No days? Prior Living Arrangements House Household Members spouse Type of transporation used prior to Drives own vehicle admit Independent with ADL's Yes Is patient alert and oriented? Yes Comment N/A Caregiver for Another No Community Services used prior to Physical Therapy admission: DME Already Rented / Owned FWW / Walker,Cane Patient/Family Preference OP PT Therapy Barriers to Discharge No Discharge Plan Home Community Services Physical Therapy Transportation Arrangement Spouse Referrals Initiated None needed Whiteboard Updated in Patient Room with Yes name and ext. # of Skein Drier Review Status In Process Please Provide Date Initial DC 10/24/23 Assessment Was Performed Pre-Anesthesia Assessment Start: 10/16/23 08:11 Freq: Status: Complete Protocol: Document 10/16/23 08:11 CAB (Rec: 10/16/23 09:33 CAB [id number]) Pre-Anesthesia Assessment Preferred Name Meliton Patient Information Reviewed Via Phone Assessment Assessment Completed With Patient Diagnostic Results BMP/CMP,CBC,EKG Comment Labs 10/15/23, EKG 08/26/23 @ Primary Care Provider Sydni Garcia Seen Specialist in Last 12 Months Yes Specialist Seen Edge Gluer,Orthopedist Primary Language Citizen Of [place] Machine Shop Supervisor Required No Height 172.72 cm Weight 83.007 kg Body Mass Index (BMI) 27.8 Hearing Ability Hearing Impaired,Use of Hearing Aid Visual Assist Glasses Dentition Type Teeth, Natural Present,Dental Implants Barriers to Learning None Hx Anesthesia Reactions No: A little goes a long a way , slow to recover Hx Family Anesthesia Reaction No Hx Malignant Hyperthermia No Hx Blood Transfusions No Hx Blood Transfusion Reaction No Anesthesia Review Requested No Forge Hand No alcohol intake current alcohol intake frequency holidays/special occasions only Smoking Status Never smoker Substance Use Type does not use Pain Present Pain Reported Musculoskeletal Symptoms Abnormal Gait,Difficulty Walking,Joint Pain History of Falling (Recent or History of No ) Patient is completely paralyzed or No completely immobile Mental Status Oriented to own ability Is patient on oxygen? No Does patient have PACHECO/SOB No Hx Sleep Apnea No Currently Taking a Beta Herbert Yes: Carvedilol Hx Chest Pain No Hx SOB No Hx Syncope or Dizziness Yes: Syncope prior to A-fib ablation Anti-Coagulant Therapy Yes: Eliquis-hold 2 days prior per Cardiology Has a Edge Gluer Yes: Pre-op visit 09/04/[address] Ravi Cardiac Testing No Hx Pacemaker/ICD No Pacemaker Rep Required? No Cardiac Clearance Received Yes Comment Cardiac records scanned and in surgery folder for dos review Diet Type At Home Regular Dysphagia No Gastrointestinal Symptoms None Chronic UTI No Urinary Catheter Present No Hx Urinary Self Catheterization No Diabetes No Hx Drug Resistant Organism No Presence of External or Internal Medical Yes: Bilat eye IOLs Devices Received a COVID vaccine? Yes Received all doses? Yes Marital Status Lives With spouse Current Living Arrangements House Number of Floors (Floors) Two Floors Support System Spouse Does the Patient Have Assistance After Yes Surgery Patient Discharge Plan Description Return Home Comment Pt advised overnight length of stay per surgeon Feels Safe in Current Environment Yes Been Physically Hurt or Threatened By a No Person in Current Environment Do you have thoughts of harming yourself None or others? Are you currently considering suicide? No Do you have a plan to hurt yourself or No Plan others? Do You Have Any Spiritual Beliefs That No May Affect Your HC Choices? Do You Have Any Cultural Practices That No May Affect Your HC Choices? Who Can We Speak to About Patient's Care Family, friends Identifying Code for Release of Patient Declines to issue Information Health Care Proxy/Next of Kin Marina () Health Care Proxy Emergency Contact Name Jackelyn (daughter) Emergency Contact Advance Directives? Yes Advance Directives on File No Requested Patient Bring Advanced Yes Directives DOS Power of Wind Tunnel Mechanic Yes Power of Wind Tunnel Mechanic Name Marina () Power of Wind Tunnel Mechanic PAC Instructions Durable medical equipment, Medications to take/avoid, Nasal antibiotic,No ETOH/ petroleum product on skin DOS, NPO,Pre-surgical wash,Sensory aids,Sturdy shoes/comfortable clothes,Do not bring valuables and remove jewelry
[2023-10-24 08:33] VITALS: BP 133/64; PULSE 84; RESP 18; O2SAT 97
--- NOTE | 2023-10-24 09:06 | PT.IPTN ---
Current Diagnoses Unilateral primary osteoarthritis, right hip (10/23/23) Surgery Performed Operation Date: 10/23/23 07:45 Actual Procedures p Total Hip Arthroplasty/Anterior(Right) - Vanessa Bowles MD Physical Therapy Treatment Note M2 PT-IP Current Condition Start: 10/23/23 17:11 Freq: NEEDED Status: Active Protocol: Document 10/23/23 17:13 KJ (Rec: 10/23/23 17:23 KJ [id number]) Physical Therapy Current Condition Current Condition Evaluation Date 10/23/23 Treatment Diagnosis Impaired mobility Onset Date 10/23/21 M3 PT-IP Subjective Start: 10/23/23 17:11 Freq: NEEDED Status: Active Protocol: Document 10/24/23 09:25 ZF (Rec: 10/24/23 09:35 ZF [id number]) Subjective Physical Therapy Visit Type Type Treatment Note Visit Start Time 09:06 Visit Stop Time 09:23 Number of WOOL HANDLER Visits 1 Physical Therapy Visit Comments Patient Comments Pt provided ibuprofen at beginning of treatment, does not report pain during mobility. Therapy Pain Assessment Pain When Pain Assessed At Rest Pain Present Pain Present Denied Pain M4 PT-IP Mobility and Gait Start: 10/23/23 17:11 Freq: NEEDED Status: Active Protocol: Document 10/24/23 09:25 ZF (Rec: 10/24/23 09:35 ZF [id number]) PT-Bed Mobility Assessment Supine to Sit Supine to Sit Standby Assistance Sit to Supine Sit to Supine Standby Assistance PT-Transfer Assessment Sit to and From Stand Sit to and from Stand Standby Assistance Equipment Transfer Assistive Device Gait Belt,Front Wheeled Walker Orthotic/Prosthetic Devices or Brace: No Comments Mobility Comments Supine<>Sitting EOB, SBA. STS from EOB w/2ww, SBA. Pt amb in room and hallway w/SBA, step- to gait to avoid R hip ext. Reviewed HEP w/pt completed ankle pumps, heel slides, quad and glute sets x10 reps. Gait Assessment Gait Gait Assistance Required: Standby Assistance Distance (Feet) 100 Able to Maintain Weight Bearing Status Yes During Gait Assistive Devices Assistive Device Gait Belt,Front Wheeled Walker Orthotic/Prosthetic Devices or Brace: No Comments Gait Comments See mobility comments. PT-Balance Assessment Sitting Balance and Reactions Static Sitting Balance Ability Normal Dynamic Sitting Balance Ability Normal Standing Balance and Reactions Static Standing Balance Ability Good Dynamic Standing Balance Ability Good M5 PT-IP Objective Assessments Start: 10/23/23 17:11 Freq: NEEDED Status: Active Protocol: Document 10/23/23 17:13 KJ (Rec: 10/23/23 17:23 KJ [id number]) Orientation Orientation/Cognition Level of Alertness Alert Orientation Name,Age,Birthday,Date Language Function Ability Hard of Hearing Safety Awareness Understands Safety Issues Comments Pt reports feeling tired [place] - has hearing aids Gross Range of Motion Lower Extremity ROM Assessment Right Impaired Impairments hip limited, normal knee and ankle Strength Lower Extremity Strength Assessment Right Impaired Hip due to surgery today Knee WFL Ankle WFL M6 PT-IP Treatment Start: 10/23/23 17:11 Freq: NEEDED Status: Active Protocol: Document 10/24/23 09:25 ZF (Rec: 10/24/23 09:35 ZF [id number]) Physical Therapy Treatment Exercises Exercises Ankle Pumps,Gluteal Sets,Quad Sets,Heel Slides Education Education Provided Precautions,Weight Bearing Status,Safety Other Treatments Other Treatment Performed Caregiver training w/, discussed equipment, home set up for safe DC home today. M7 PT-IP Assessment and Plan Start: 10/23/23 17:11 Freq: NEEDED Status: Active Protocol: Document 10/24/23 09:25 ZF (Rec: 10/24/23 09:35 ZF [id number]) PT Summary Assessment and Plan Potential Rehabilitation Potential Excellent Summary Impairments ROM,Strength,Bed Mobility, Transfers,Gait Assessment Summary Pt completes all mobility w/ SBA,dems good safety awareness , denies pain. Pt's present and able to assist patient at home. Pt reports feeling good about DC home today. Goals Bed Mobility Goal Independent Transfer Goal Standby Assistance Gait Goal Standby Assistance Gait Distance 50' Other Goals ascend/descend 3 steps with rail Days to Meet Goals 2 Frequency of Treatment Frequency Of Treatment Twice a Day Treatment Plan Physical Therapy Treatment Plan Bed Mobility Training,Transfer Training,Gait Training, Therapeutic Exercise Other Recommendations and Next Treatment Pt declines stairs today, as Focus he has no stairs to enter house, and plans to remain on main floor. Precautions Anterior Hip Precautions No Hip Extension,No Hip External Rotation Weight Bearing Status Weight Bearing Status Weight Bear as Tolerated Recommendations To Nursing Amount of Assist Needed 1 Person Assist Discharge Recommendations PT Discharge Recommendations Home with Assistance Transportation Needs at Discharge Private Vehicle
[2023-10-24] MEDS: IBUPROFEN 400 MG TABLET PO (09:09)
[2023-10-24] MEDS: DOCUSATE 100 MG CAPSULE PO (09:09)
[2023-10-24] MEDS: ASPIRIN EC 81 MG TABLET PO (09:09)
--- NOTE | 2023-10-24 09:30 | OT.IP.TRT ---
Current Diagnoses Unilateral primary osteoarthritis, right hip (10/23/23) Surgery Performed Operation Date: 10/23/23 07:45 Actual Procedures p Total Hip Arthroplasty/Anterior(Right) - Vanessa Bowles MD Occupational Therapy Treatment Note M2 OT-IP Current Condition Start: 10/23/23 15:13 Freq: Status: Active Protocol: Document 10/23/23 15:13 [facility] (Rec: 10/23/23 15:26 [facility] [id number]) Occupational Therapy Current Condition Current Condition Evaluation Date 10/23/23 Treatment Diagnosis S/P R GLEN Diagnosis Onset Date 10/23/23 Post Operative Precautions Anterior Hip Precautions No Hip Extension,No Hip External Rotation M3 OT- IP Subjective and Pain Start: 10/23/23 15:13 Freq: Status: Active Protocol: Document 10/24/23 09:37 [facility] (Rec: 10/24/23 09:41 [facility] [id number]) OT- Subjective Occupational Therapy Visit Type Type Treatment Note Visit Start Time 09:30 Visit Stop Time 09:38 Occupational Therapy Visit Comments Patient Comments Pt looking to go home and able to finalize OT suggestion for bathing needs. Patient/Caregiver Goals TO go home. M4 OT- IP ADL's Start: 10/23/23 15:13 Freq: Status: Active Protocol: Document 10/24/23 09:37 [facility] (Rec: 10/24/23 09:41 [facility] [id number]) OT ADL-Bathing Comments OT Bathing Comments Pt states the walk in shower is too small to have a shower chair and then suggested able to use the FWW in the shower but to be sure to dry it off afterwards. Otherwise if using the tub/shower maybe beneficial to have a tub bench in addition to HHPS. However pt can also have a shower chair inside the tub and with assist to help step in and out . M8 OT- IP Objective Assessments Start: 10/23/23 15:13 Freq: Status: Active Protocol: Document 10/23/23 15:13 [facility] (Rec: 10/23/23 15:26 [facility] [id number]) OT Gross Range of Motion Upper Extremity Range of Motion Assessment Within Functional Limits OT Strength Upper Extremity Strength Assessment Within Functional Limits M9 OT- IP Assessment and Plan Start: 10/23/23 15:13 Freq: Status: Active Protocol: Document 10/24/23 09:37 [facility] (Rec: 10/24/23 09:41 [facility] [id number]) OT Summary Assessment and Plan Potential Rehabilitation Potential Excellent Analytic Complexity at Evaluation Low Summary OT Impairments Pain,Balance,Functional Mobility,Grooming,Dressing, Toileting,Bathing,Toilet Transfers,Shower Transfers, Activity Tolerance Progress Towards Goals Progressing Toward Goals Assessment Summary Able to finalize OT suggestions and needs with pt and his . Pt to go home today and have outpt PT. Goals Self-Feeding Goal Independent Grooming Goal Independent Dressing Goal Minimal Assistance Toileting Goal Independent Bathing Goal Independent Toilet Transfer Goal Independent Shower Transfer Goal Independent Days to Meet Goals 5 Frequency of Treatment Frequency Of Treatment Once a Day Treatment Plan OT Treatment Plan ADL Training,Functional Mobility,Patient/Family Education,Discharge Planning Discharge Recommendations OT Discharge Recommendations Home with Assistance, Outpatient PT Home Equipment Needs Shower chair, HHPS, LB dressing equipment as needed Transportation Needs at Discharge Private Vehicle
--- NOTE | 2023-10-24 11:29 | PC.NURSE ---
Discharge: Pt feels ready to d/c to home. Tolerates diet w/out problems. No pain so far but did get exparel and this was discussed with him. He may have more pain in another day or two as the medication wears off. Vds w/out diff. PA here to see pt and she gave d/c instructions. Reviewed wound care. Seen by PT/OT and given d/c instructions. Reviewed d/c packet with pt. Questions answered. Spouse here. Pt reports no concerns at time of d/c. Pt d/c to home via auto w/spouse.
== END 2023-10-24 11:05 | disposition home or self-care (01) ==
LOC: OR 06:28 → AC 06:30
PROVIDERS: PCP Nurse Practitioner; Referring Provider Orthopaedic Surgery; Visit Provider Orthopaedic Surgery
PROC: (CPT 27130; principal; 2023-10-23 07:45)
DX: M16.11 Unilateral primary osteoarthritis, right hip (principal); M70.61 Trochanteric bursitis, right hip; I48.91 Unspecified atrial fibrillation; I10 Essential (primary) hypertension; I08.0 Rheumatic disorders of both mitral and aortic valves; E78.5 Hyperlipidemia, unspecified; I50.9 Heart failure, unspecified; Z79.01 Long term (current) use of anticoagulants
CPT/HCPCS: 27130; 73502; 76000; 85014; 85018; 97116; 97165; 97530; 97535; C1776; C9290; J0171; J0690; J1100; J1170; J2405; J2704; J3010; J3410

== ENCOUNTER 2023-10-25 11:06 | Inpatient (IN) | payer MEDICARE, SELFPAY ==
[2023-10-23 12:09] VITALS: BMI 27.8
[2023-10-25] VITALS (13 sets, daily range): BP systolic 119–142; BP diastolic 56–67; PULSE 70–90; RESP 12–26; TEMP 36.4–37.7; O2SAT 94–99; BMI 30.4
--- NOTE | 2023-10-25 11:18 | DI.RAD.S_ITS ---
PROCEDURE: XR CHEST 1V INDICATIONS: chest pain TECHNIQUE: One view of the chest was acquired. COMPARISON: [facility], JAYLA, XR CHEST 1V, 10/14/2021, 5:57. [facility], JAYLA, CHEST 1 VIEW, 06/25/2017, 13:09. FINDINGS: Surgical changes and devices: None. Lungs and pleura: Low lung volumes. No consolidation or pleural effusion. Mediastinum: Unchanged cardiomediastinal contours. Bones and chest wall: Degenerative changes. IMPRESSION: No acute radiographic abnormality on this single view study. Dictated by: Tico Rodrigues M.D. on 10/25/2023 at 12:22 Approved by: Tico Rodrigues M.D. on 10/25/2023 at 12:22
[2023-10-25 11:25] LABS: Add Manual Diff / Slide Review NO; Basophils Absolute Auto 0 /uL (0-100); Eosinophils Absolute Auto 100 /uL (0-450); Eosinophils Percent Auto 0.4 % (2-4); Hematocrit 30.8 % (41-53); Hemoglobin 10.5 g/dL (13.5-17.5); INR 1.8 (0.9-1.3); Lymphocytes Absolute Auto 2200 /uL (1100-4500); Lymphocytes Percent Auto 15.9 % (25-40); Mean Corpuscular HGB Conc 34.2 % (30-36); Mean Corpuscular Hemoglobin 29.3 PG (26-34); Mean Corpuscular Volume 85.8 fL (80-100); Monocytes Absolute Auto 1800 /uL (0-900); Monocytes Percent Auto 13.2 % (3-14); Neutrophils Absolute Auto 9800 /uL (1500-7000); Neutrophils Percent Auto 70.5 % (50-75); Platelet Count 212 X10^3/uL (150-400); Prothrombin Time 20.3 SECONDS (9.4-12.5); Red Blood Cell Count 3.59 X10^6/uL (4.5-5.9); Red Cell Distribution Width 13.2 % (11.6-14.8); White Blood Cell Count 13.9 X10^3/uL (4.5-11.0)
[2023-10-25 11:28] LABS: PTT Partial Thromboplastin Tim 31 SECONDS (25.1-36.5)
[2023-10-25 11:31] LABS: Alanine Aminotransferase 22 IU/L (<50); Albumin 3.5 g/dL (3.5-5.0); Albumin Globulin Ratio 1.1 (1.0-2.8); Alkaline Phosphatase 67 U/L (38-126); Aspartate Aminotransferase 54 IU/L (17-59); BUN Creatinine Ratio 21.2 (6-22); Bilirubin Total 1.6 mg/dL (0.2-1.3); Blood Urea Nitrogen 14 mg/dL (9-20); Calcium 8.6 mg/dL (8.4-10.2); Carbon Dioxide 25 mmol/L (22-32); Chloride 96 mmol/L (98-107); Creatine Kinase 665 U/L (55-170); Estimated Glomerular Filt Rate > 60 mL/min (>60); Globulin 3.2 g/dL (1.7-4.1); Glucose 129 mg/dL (80-110); HEMOLYSIS < 15 (0-50); Lipase 57 U/L (23-300); Magnesium 1.9 mg/dL (1.6-2.3); Potassium 4.1 mmol/L (3.4-5.1); Sodium 127 mmol/L (137-145); Total Protein 6.7 g/dL (6.3-8.2)
[2023-10-25] MEDS: ACETAMINOPHEN 325 MG TABLET 650 MG PO ×2 (11:32→21:09)
[2023-10-25 11:41] LABS: Troponin I < 0.012 ng/mL (0.01-0.034)
--- NOTE | 2023-10-25 11:45 | PC.NURSE ---
arrives and this RN asked her questions about both incidents. She stated both of them happened on the toilet and lasted 30-60 seconds. She states his breathing during them was labored and he was clinching his hands during it. She continues his eyes were open the second time throughout. This RN asked if that was any history of seizures to which they both responded no. This RN informed provider update of new information.
--- NOTE | 2023-10-25 12:11 | ED_ITS ---
HPI - General Adult General Chief complaint: Syncope Stated complaint: Syncope Time Seen by Provider: 10/25/23 11:28 Source: patient and EMS Mode of arrival: EMS History of Present Illness HPI narrative: Patient is a 77-year-old male. Two days status post right total hip arthroplasty. Was discharged home yesterday. He states that last evening he was standing in his bedroom. He states that he felt somewhat nauseous. He states the next thing he knows he was on the ground. His was with him at the time. She states that he had a ?guttural? sound and then passed out. She helped him to the ground. He did not hit his head. He is on blood thinners for atrial fibrillation. He did not hurt his right hip. There was no seizure activity. No loss of bowel or bladder. Prior to the event he did not have chest pain palpitations or shortness of breath. They contacted the patient's orthopedic surgeon who advised that they come to the emergency department. They contacted EMS to help him up. They decided not to come in last evening. This morning the patient was sitting on the toilet urinating. His was standing right outside the door. She states he made the same sound again and when she went back in he was slumped backwards. Patient again reports no prodromal symptoms. At the time of my evaluation he reports some nausea. He states that he feels like he has having a ?brain fog? he did have general anesthesia and also a spinal. He did take a pain pill last evening but nothing since then. Related Data Home Medications Medication Instructions Recorded Confirmed latanoprost 0.005 % eye drops 1 p [facility] HS ##0 06/25/17 10/16/23 apixaban 5 mg tablet (Eliquis) 5 mg PO BID 05/17/19 10/23/23 clonidine HCl 0.1 mg tablet 0.1 mg PO .every 2 hours PRN 10/23/21 10/23/23 hypertensive emergency acetaminophen 500 mg tablet 500 mg PO BID-TID PRN Pain 10/16/23 10/23/23 Previous Rx's Medication Instructions Recorded clonidine 0.1 mg/24 hr weekly 1 patch transdermal QWEEK #12 ea 01/01/22 transdermal patch ([id number]) spironolactone 25 mg tablet 12.5 mg (1/2 x 25 mg) PO DAILY #90 10/15/22 tabs carvedilol 12.5 mg tablet 18.75 mg (1.5 x 12.5 mg) PO BID 10/16/22 #270 tabs lisinopril 40 mg tablet 40 mg PO DAILY #90 tabs 01/01/23 felodipine 5 mg tablet,extended See Rx Instructions .Route 03/03/23 release 24 hr .COMPLEX #90 tabs atorvastatin 40 mg tablet See Rx Instructions .Route 03/31/23 .COMPLEX #90 tabs aspirin 81 mg tablet,delayed 81 mg PO BID #90 tabs 10/24/23 release docusate sodium 100 mg capsule 100 mg PO BID PRN constipation #30 10/24/23 caps ondansetron 4 mg disintegrating 4 mg PO Q4HR PRN Nausea #30 tabs 10/24/23 tablet oxycodone 5 mg tablet 5 mg PO Q4-6H PRN Pain, Moderate 10/24/23 (4-6) #30 tabs Allergies Allergy/AdvReac Type Severity Reaction Status Date / Time amlodipine AdvReac Mild Flushing Verified 10/23/23 06:37 Review of Systems Review of Systems ROS Unobtainable: All systems reviewed & are unremarkable except as noted in HPI and below Patient History Medical History Anxiety History of syncope History of cardioversion (07/2017) Nonrheumatic aortic valve insufficiency Non-rheumatic mitral regurgitation Pre-diabetes Anemia Chronic right SI joint pain Chronic atrial fibrillation Gait abnormality Right leg pain Right hip pain Chronic anticoagulation Colon polyps (05/18/09) SCCA (squamous cell carcinoma) of skin BCC (basal cell carcinoma of skin) Melanoma (2010) Hyperlipidemia Hypertension Psoriasis (2010) A-fib Surgical History (Updated 10/16/23 @ 09:10 by Ledy Johnson RN) Hx of oral surgery Hx of lymph node excision Hx of tonsillectomy History of radiofrequency ablation procedure for cardiac arrhythmia History of left cataract surgery (01/20/18) History of right cataract surgery (01/06/18) History of colonoscopy with polypectomy (04/15/17) History of colonoscopy with polypectomy (05/18/09) History of melanoma excision (2015) History of melanoma excision (2010) History of vasectomy (1987) Family History Father Cancer Grandfather Stroke Mother Heart disease Grandmother Cancer Grandfather Stroke Grandmother Stroke Sister No problems noted. Social History household members: spouse Smoking Status: Never smoker second hand exposure: No alcohol intake: current substance use type: does not use Smoking Status: Never smoker alcohol intake frequency: holidays/special occasions only Substance Use Type: does not use Exam Initial Vital Signs Initial Vital Signs: Vital Signs Pulse Rate 76 10/25/23 11:10 Respiratory Rate 18 10/25/23 11:10 Blood Pressure 124/59 L 10/25/23 11:10 Pulse Oximetry 98 10/25/23 11:10 Oxygen Delivery Method Room Air 10/25/23 11:10 Const General: cooperative, comfortable and No ill appearing HENMT Head: normal to inspection and normocephalic Resp Effort & Inspection: normal respiratory effort Auscultation: clear to auscultation bilaterally Cardio Rate: regular rate Rhythm: regular rhythm GI Inspection: normal to inspection Skin General: no rashes or lesions noted Neuro General: patient alert, patient awake, patient oriented x3 and moves all extremities Extrem Other: Discomfort to the right hip secondary to surgery otherwise unremarkable Scores GCS [place] coma scale eye opening: Spontaneous [place] coma scale verbal response: Orientated [place] coma scale motor response: Obey commands [place] coma scale total score: 15 Course Orders Ordered: ED Orders 10/25/23 11:18 XR chest 1V Stat 10/25/23 11:21 Complete Blood Count AUTO DIFF Stat Comprehensive Metabolic Panel Stat Lipase Stat Magnesium Stat PTT Partial Thromboplastin Tom Stat Prothrombin Time INR Stat Troponin & CK Cardiac Panel Stat 10/25/23 11:25 EKG-12 Lead Stat 10/25/23 12:24 XR hip w pel if done RT 2V Stat 10/25/23 13:29 Consult to Orthopedic Surgery Stat Sodium Chloride (Normal Saline 0.9%) 1,000 mls @ 1,000 mls/hr IV BOLUS ONE Stop: 10/25/23 14:27 Last Admin: 10/25/23 13:36 Dose: 1,000 mls/hr Documented By: RB Sodium Chloride (Normal Saline 0.9%) 1,000 mls @ 125 mls/hr IV CONT ANGELA Discontinued Medications Acetaminophen (Acetaminophen 325 Mg Tablet) 650 mg PO NOW ONE Stop: 10/25/23 11:30 Last Admin: 10/25/23 11:32 Dose: 650 mg Documented By: RB Aspirin (Aspirin 81 Mg Chew Tab) 324 mg PO NOW ONE Stop: 10/25/23 11:19 Last Admin: 10/25/23 11:29 Dose: Not Given Documented By: RB Ondansetron HCl (Ondansetron 4 Mg/2 Ml Inj) 4 mg IV NOW ONE Stop: 10/25/23 13:37 Vital Signs Vital signs: Vital Signs - 8 hr 10/25/23 11:10 10/25/23 11:10 10/25/23 11:10 Pulse Rate 76 77 Respiratory Rate 18 Blood Pressure 124/59 L 124/59 L Pulse Oximetry 98 97 Oxygen Delivery Method Room Air 10/25/23 11:30 10/25/23 11:30 10/25/23 12:00 Pulse Rate 79 Respiratory Rate 26 H Blood Pressure 119/59 L 121/56 L Pulse Oximetry 99 Oxygen Delivery Method 10/25/23 12:00 10/25/23 12:30 10/25/23 12:30 Pulse Rate 70 79 Respiratory Rate 21 19 Blood Pressure 128/60 Pulse Oximetry 95 97 Oxygen Delivery Method 10/25/23 13:00 10/25/23 13:30 Pulse Rate 74 80 Respiratory Rate 20 18 Blood Pressure Pulse Oximetry 95 96 Oxygen Delivery Method Medical Decision Making Lab Data Lab results reviewed: Yes I reviewed the patient's lab results. 10/25/23 11:21 10/25/23 11:21 Labs: Lab Results 10/25/23 Range/Units 11:21 WBC 13.9 H (4.5-11.0) X10^3/uL RBC 3.59 L (4.5-5.9) X10^6/uL Hgb 10.5 L (13.5-17.5) g/dL Hct 30.8 L (41-53) % MCV 85.8 (80-100) fL MCH 29.3 (26-34) PG MCHC 34.2 (30-36) % RDW 13.2 (11.6-14.8) % Plt Count 212 (150-400) X10^3/uL Neut % (Auto) 70.5 (50-75) % Lymph % (Auto) 15.9 L (25-40) % [place] % (Auto) 13.2 (3-14) % Eos % (Auto) 0.4 L (2-4) % Baso % (Auto) 0.0 (0-2) % Neut # (Auto) 9800 H (1429-5994) /uL Lymph # (Auto) 2200 (3161-7689) /uL [place] # (Auto) 1800 H (0-900) /uL Eos # (Auto) 100 (0-450) /uL Baso # (Auto) 0 (0-100) /uL PT 20.3 H (9.4-12.5) SECONDS INR 1.8 H (0.9-1.3) APTT 31 (25.1-36.5) SECONDS Sodium 127 L D (137-145) mmol/L Potassium 4.1 (3.4-5.1) mmol/L Chloride 96 L (98-107) mmol/L Carbon Dioxide 25 (22-32) mmol/L BUN 14 (9-20) mg/dL Creatinine 0.66 (0.66-1.25) mg/dL Estimated GFR > 60 (>60) mL/min BUN/Creatinine Ratio 21.2 (6-22) Glucose 129 H (80-110) mg/dL Calcium 8.6 (8.4-10.2) mg/dL Magnesium 1.9 (1.6-2.3) mg/dL Total Bilirubin 1.6 H (0.2-1.3) mg/dL AST 54 (17-59) IU/L ALT 22 (<50) IU/L Alkaline Phosphatase 67 (38-126) U/L Total Creatine Kinase 665 H (55-170) U/L Troponin I < 0.012 (0.01-0.034) ng/mL Total Protein 6.7 (6.3-8.2) g/dL Albumin 3.5 (3.5-5.0) g/dL Globulin 3.2 (1.7-4.1) g/dL Albumin/Globulin Ratio 1.1 (1.0-2.8) Lipase 57 (23-300) U/L Point of Care Testing Glucose POC 102 Point of care testing: Point of Care Testing Glucose POC 102 Imaging Data Extremity x-ray #1: Radiologist's Impression: PROCEDURE: XR CHEST 1V INDICATIONS: chest pain TECHNIQUE: One view of the chest was acquired. COMPARISON: [facility], CR, XR CHEST 1V, 10/14/2021, 5:57. [facility], CR, CHEST 1 VIEW, 06/25/2017, 13:09. FINDINGS: Surgical changes and devices: None. Lungs and pleura: Low lung volumes. No consolidation or pleural effusion. Mediastinum: Unchanged cardiomediastinal contours. Bones and chest wall: Degenerative changes. IMPRESSION: No acute radiographic abnormality on this single view study. Extremity x-ray #2: Radiologist's Impression: PROCEDURE: XR HIP W PEL IF DONE RT 2V INDICATIONS: nhi 2 days ago with fall TECHNIQUE: 3 views of the hip were acquired. COMPARISON: [facility], CR, XR HIP W PEL IF DONE RT 2V, 10/23/2023, 11:11. [facility], CR, XR HIP W PEL IF DONE RT 2V, 10/23/2023, 9:20. FINDINGS: Bones: Right hip arthroplasty with expected postsurgical changes. Moderate left hip arthrosis. Lumbosacral degenerative changes. Soft tissues: Pelvic calcifications, likely phleboliths. There are pelvic clips. IMPRESSION: No acute radiographic abnormality. Right hip arthroplasty with postsurgical changes. If there is high concern for occult injury, consider repeat radiography or cross- sectional imaging. ECG Data Attestation: I personally reviewed and interpreted this ECG as follows: Interpretation: Sinus rhythm Ventricular rate is 71 Normal axis Normal QRS Normal QTC No ST T wave changes MDM Narrative Medical decision making narrative: Patient did have 2 syncopal episodes without apparent prodromal symptoms. He does have history of AFib but not in AFib currently. Chest x-ray and right hip x-ray showed no acute pathology. He did not hit his head. No localizing neurologic symptoms. I did discuss the case with Dr. Bowles who recommended the patient be admitted for evaluation. Discussed the case with Dr. Washington hospitalist on-call. We will admit for observation. Discussed the need for admission with the patient his . They both expressed understanding and agreement with plan. Discharge Plan Departure Patient Disposition: Admitted as Observation Clinical Impression: Recurrent syncope, Hyponatremia Admit Date/Time: 10/25/23 13:31 Admit Provider: Harpreet Santos
--- NOTE | 2023-10-25 12:24 | DI.RAD.S_ITS ---
PROCEDURE: XR HIP W PEL IF DONE RT 2V INDICATIONS: nhi 2 days ago with fall TECHNIQUE: 3 views of the hip were acquired. COMPARISON: [facility], CR, XR HIP W PEL IF DONE RT 2V, 10/23/2023, 11:11. [facility], CR, XR HIP W PEL IF DONE RT 2V, 10/23/2023, 9:20. FINDINGS: Bones: Right hip arthroplasty with expected postsurgical changes. Moderate left hip arthrosis. Lumbosacral degenerative changes. Soft tissues: Pelvic calcifications, likely phleboliths. There are pelvic clips. IMPRESSION: No acute radiographic abnormality. Right hip arthroplasty with postsurgical changes. If there is high concern for occult injury, consider repeat radiography or cross-sectional imaging. Dictated by: Tico Rodrigues M.D. on 10/25/2023 at 13:09 Approved by: Tico Rodrigues M.D. on 10/25/2023 at 13:10
[2023-10-25] MEDS: SODIUM CHLORIDE 0.9% 1,000 ML 1000 ML IV (13:36)
[2023-10-25] MEDS: ONDANSETRON 4 MG/2 ML INJ IV ×3 (13:38→21:08)
--- NOTE | 2023-10-25 15:24 | DI.ECHO.S_ITS ---
[facility] +---------+ : : [address] : : : : [id number] : : : : Phone: [phone]---------+ Echocardiogram Report + + :Name: JOSSE MITCHELL Study Date: 10/26/2023 Height: 68 in : :[facility] ReadingLocation: Weight: 200 lb : : Gender: Male BSA: 2.0 m2 : :: 1945 Age: 77 yrs BP: 131/36 mmHg: :Reason For Study: RECURRENT SYNCOPE : :Ordering Physician: ESTELLA, : :PACO KIMBLE Performed By: Ebony Hernández : :Referring: PACO SORIA : + + Interpretation Summary The left ventricle is normal in size. The ejection fraction is estimated to be 65-70%. The right ventricle is normal in size and function. There is mild to moderate aortic regurgitation. Compared to the prior echo study, there has been no change in the severity of aortic regurgitation. The IVC is of normal diameter and collapses greater than 50% with a sniff. This suggests a low right atrial pressure of 3 mm Hg. Procedure: A two-dimensional transthoracic echocardiogram with color flow and Doppler was performed. The study quality was technically adequate. Comparison is made with the echocardiogram of 08/06/2021. The patient was in sinus rhythm with heart rates between 68-85 bpm during the exam. Left Ventricle: The left ventricle is normal in size. Proximal septal thickening is noted. There is no echo evidence for significant left ventricular outflow tract obstruction. The ejection fraction is estimated to be 65-70%. There are no focal wall motion abnormalities. Diastolic parameters suggest a relaxation abnormality of the left ventricle, consistent with probable normal filling pressures. Right Ventricle: The right ventricle is normal in size and function. Atria: The left atrial size is normal. The left atrium has mildly decreased in size since the prior echo exam. Right atrial size is normal. There is no Doppler evidence for an interatrial shunt. Mitral Valve: The mitral valve is normal in structure and function. There is trace mitral regurgitation. Compared to the prior echo study, there has been a decrease in the severity of mitral regurgitation. Aortic Valve: The aortic valve is trileaflet. The aortic valve opens well. There is mild aortic valve sclerosis. There is no aortic valve stenosis. There is mild to moderate aortic regurgitation. Compared to the prior echo study, there has been no change in the severity of aortic regurgitation. Tricuspid Valve: The tricuspid valve is normal in structure and function. There is trace tricuspid regurgitation. The right ventricular systolic pressure is estimated to be at least 26 mmHg based on an estimated right atrial pressure of 3 mm Hg. Pulmonic Valve: The pulmonic valve is not well visualized. There is no pulmonic valvular regurgitation. Great Vessels: The aortic root is normal size. The ascending aorta could not be visualized. The IVC is of normal diameter and collapses greater than 50% with a sniff. This suggests a low right atrial pressure of 3 mm Hg. Pericardium/ Pleura There is no pericardial effusion. There is no pleural effusion. MMode/2D Measurements & Calculations LVIDd: 4.8 cm LVOT diam: 2.3 cm LVIDs: 3.4 cm Ao root diam: 3.6 cm FS: 30.3 % Ao Arch Diam (Prox Trans): 3.0 cm IVSd: 0.88 cm LVPWd: 1.0 cm LV ponce. diameter/BSA (cm/m^2): 2.4 LV sys. diameter/BSA (cm/m^2): 1.6 LA A2 area: 19.2 cm2 RA long axis: 5.2 cm LA A4 area: 16.4 cm2 RA area: 18.6 cm2 LA length (vol): 5.9 cm RA vol: 56.5 ml LA vol: 45.2 ml RA : 27.6 ml/m2 LA vol index: 22.1 ml/m2 IVC diam: 1.5 cm RVD1 (basal): 3.5 cm RVD2 (mid): 2.7 cm TAPSE: 2.4 cm Doppler Measurements & Calculations Ao V2 max: 156.8 cm/sec LVOT Max [place]: 107.4 cm/sec Ao V2 mean: 102.3 cm/sec LV V1 max P.6 mmHg Ao max P.8 mmHg LV V1 VTI: 15.0 cm Ao mean P.7 mmHg JERRY(I,D): 2.4 cm2 Ao V2 VTI: 26.5 cm JERRY(V,D): 2.9 cm2 sev ratio: 0.57 JERRY indexed to BSA (cm^2/m^2): 1.2 MV E max shelton: 51.6 cm/sec TR max shelton: 237.6 cm/sec MV A max shelton: 56.9 cm/sec TR max P.6 mmHg MV E/A: 0.91 Med Peak E' Shelton: 8.7 cm/sec E/E' med: 6.0 Lat Peak E' Shel[place]: 8.4 cm/sec E/E' lat: 6.1 E/e' average: 6.0 MV dec time: 0.26 sec SV(LVOT): 63.8 ml Reading Physician:01:29 PM
--- NOTE | 2023-10-25 15:54 | P.HP_ITS ---
History of Present Illness History of Present Illness Date Patient Seen: 10/25/23 Time Patient Seen: 15:55 Chief complaint: Syncope Narrative: This is a 77 year old male with PMH of paroxysmal afib s/p ablation 2 years ago, HTN, HLD, prior syncope (admit to [facility], reports due to afib but per discharge summary due to orthostatic hypotension) with recent total R hip surgery on 10/23/23 who presented to the ER today after 2 episodes of syncope. He was discharged from the hospital yesterday after his hip surgery. He has not eaten much since surgery, but did eat normally yesterday. He had a normal bowel movement yesterday and denies melena or BRBPR. He denies fever, chills, or chest pain. At around 9 pm he took an oxycodone yesterday, he was up at his dresser in the bedroom when he began to feel nauseous and passed out briefly. He did not fall. He went to bed, and this morning went to go to the restroom and felt nauseous again and then remembers waking up on the floor. He complains of R hip pain but no other complaints currently. He denies palpitations prior to his syncopal episodes. Last echo was in 2020. Given recurrent syncope, past afib with remote ablation, and past reports of aortic insufficiency and mitral regurg, last echo 3 years ago he was admitted for further evaluation for possible cardiac syncope. [facility] Medical History Anxiety History of syncope History of cardioversion (07/2017) Nonrheumatic aortic valve insufficiency Non-rheumatic mitral regurgitation Pre-diabetes Anemia Chronic right SI joint pain Chronic atrial fibrillation Gait abnormality Right leg pain Right hip pain Chronic anticoagulation Colon polyps (05/18/09) SCCA (squamous cell carcinoma) of skin BCC (basal cell carcinoma of skin) Melanoma (2010) Hyperlipidemia Hypertension Psoriasis (2010) A-fib Surgical History Hx of oral surgery Hx of lymph node excision Hx of tonsillectomy History of radiofrequency ablation procedure for cardiac arrhythmia History of left cataract surgery (01/20/18) History of right cataract surgery (01/06/18) History of colonoscopy with polypectomy (04/15/17) History of colonoscopy with polypectomy (05/18/09) History of melanoma excision (2015) History of melanoma excision (2010) History of vasectomy (1987) Family History Father Cancer Grandfather Stroke Mother Heart disease Grandmother Cancer Grandfather Stroke Grandmother Stroke Sister No problems noted. Social History household members: spouse Smoking Status: Never smoker second hand exposure: No alcohol intake: current substance use type: does not use Meds Home Medications and Allergies Home Medications Medication Instructions Recorded Confirmed Type latanoprost 0.005 % eye drops 1 drp OPH HS ##0 06/25/17 10/25/23 History apixaban 5 mg tablet (Eliquis) 5 mg PO BID 05/17/19 10/25/23 History clonidine HCl 0.1 mg tablet 0.1 mg PO .every 2 hours PRN 10/23/21 10/25/23 History hypertensive emergency clonidine 0.1 mg/24 hr weekly 1 patch transdermal QWEEK #12 ea 01/01/22 10/25/23 Rx transdermal patch ([id number]) spironolactone 25 mg tablet 12.5 mg (1/2 x 25 mg) PO DAILY #90 10/15/22 10/25/23 Rx tabs carvedilol 12.5 mg tablet 18.75 mg (1.5 x 12.5 mg) PO BID 10/16/22 10/25/23 Rx #270 tabs lisinopril 40 mg tablet 40 mg PO DAILY #90 tabs 01/01/23 10/25/23 Rx acetaminophen 500 mg tablet 500 mg PO BID-TID PRN Pain 10/16/23 10/25/23 History aspirin 81 mg tablet,delayed 81 mg PO BID #90 tabs 10/24/23 10/25/23 Rx release docusate sodium 100 mg capsule 100 mg PO BID PRN constipation #30 10/24/23 10/25/23 Rx caps ondansetron 4 mg disintegrating 4 mg PO Q4HR PRN Nausea #30 tabs 10/24/23 10/25/23 Rx tablet oxycodone 5 mg tablet 5 mg PO Q4-6H PRN Pain, Moderate 10/24/23 10/25/23 Rx (4-6) #30 tabs atorvastatin 40 mg tablet 40 mg PO QAM 10/25/23 10/25/23 History felodipine 5 mg tablet,extended 5 mg PO ACHS 10/25/23 10/25/23 History release 24 hr Allergies Allergy/AdvReac Type Severity Reaction Status Date / Time amlodipine AdvReac Mild Flushing Verified 10/23/23 06:37 Review of Systems Review of Systems Narrative: All other systems reviewed with the patient and are negative unless otherwise stated. Exam Vital Signs (past 8 hours): - 10/25/23 11:10 10/25/23 11:10 10/25/23 11:10 Temperature Pulse Rate 76 77 Respiratory Rate 18 Blood Pressure 124/59 L 124/59 L Pulse Oximetry 98 97 Oxygen Delivery Method Room Air 10/25/23 11:30 10/25/23 11:30 10/25/23 12:00 Temperature Pulse Rate 79 Respiratory Rate 26 H Blood Pressure 119/59 L 121/56 L Pulse Oximetry 99 Oxygen Delivery Method 10/25/23 12:00 10/25/23 12:30 10/25/23 12:30 Temperature Pulse Rate 70 79 Respiratory Rate 21 19 Blood Pressure 128/60 Pulse Oximetry 95 97 Oxygen Delivery Method 10/25/23 13:00 10/25/23 13:30 10/25/23 14:00 Temperature Pulse Rate 74 80 78 Respiratory Rate 20 18 16 Blood Pressure Pulse Oximetry 95 96 94 Oxygen Delivery Method 10/25/23 14:50 10/25/23 14:50 Temperature 99.5 F Pulse Rate 90 Respiratory Rate 16 Blood Pressure 142/67 H Pulse Oximetry 95 95 Oxygen Delivery Method Room Air Oxygen Delivery Method Room Air Narrative Exam Narrative: General:? Patient is well developed and well nourished, in no distress at this time. Appears mildly anxious and mildly uncomfortable shifting frequently. HEENT:? Normocephalic, atraumatic, extraocular muscles intact, oral pharynx is clear and mucous membranes are moist. Neck: supple and symmetric, trachea is midline, no cervical adenopathy. Chest:? Normal AP diameter and contour without kyphoscoliosis, no tachypnea, equal chest rise bilaterally. CV: RRR Extremities: No edema or joint effusions. Neuro:? Alert and orientated x3,? sensation to touch intact in all extremities, no gross deficits noted of cranial nerves. Psych:? Patient has a well-kept appearance, appropriate affect, mental status attitude thought context and judgment are appropriate for age. Objective ECG Impression: NSR. As interpreted by me. No acute ischemia. Labs 10/25/23 11:21 10/25/23 11:21 Labs: Laboratory Results - last 24 hr 10/25/23 11:21 WBC 13.9 H RBC 3.59 L Hgb 10.5 L Hct 30.8 L MCV 85.8 MCH 29.3 MCHC 34.2 RDW 13.2 Plt Count 212 Neut % (Auto) 70.5 Lymph % (Auto) 15.9 L [place] % (Auto) 13.2 Eos % (Auto) 0.4 L Baso % (Auto) 0.0 Neut # (Auto) 9800 H Lymph # (Auto) 2200 [place] # (Auto) 1800 H Eos # (Auto) 100 Baso # (Auto) 0 PT 20.3 H INR 1.8 H APTT 31 Sodium 127 L D Potassium 4.1 Chloride 96 L Carbon Dioxide 25 BUN 14 Creatinine 0.66 Estimated GFR > 60 BUN/Creatinine Ratio 21.2 Glucose 129 H Calcium 8.6 Magnesium 1.9 Total Bilirubin 1.6 H AST 54 ALT 22 Alkaline Phosphatase 67 Total Creatine Kinase 665 H Troponin I < 0.012 Total Protein 6.7 Albumin 3.5 Globulin 3.2 Albumin/Globulin Ratio 1.1 Lipase 57 Assessment & Plan Assessment & Plan narrative: 1. Recurrent syncope - Presenting history is reassuring, and suspect orthostatic hypotension due to probable mild dehydration, anesthesia, and opiates. However given history of afib with remote ablation and prior aortic insufficiency cannot rule out cardiac etiology. Last TTE was 3 years ago. - recheck TTE, check orthostatic vitals qshift. - hold some home antihypertensives to allow for possible orthostasis - received fluids in the ER, will not continue at this time. No obvious signs or symptoms of infection, though will check a UA. CXR is unremarkable based on radiology and my evaluation. - monitor with tele for possible arrythmia - very low probability for ACS, troponin negative EKG with NSR without ST changes, and no chest pain. Will not repeat troponin at this time unless symptoms develop. 2. Paroxysmal atrial fibrillation - history of ablation 2 years ago, sees Dr. Ravi with [facility] cardiology - continue home beta marco antonio - continue home eliquis 3. Hyponatremia - will continue to follow, may be due to dehydration and is now s/p fluids in the ER. - Na 127 on admission. 4. HTN - hold home clonidine and spironolactone for now. Continue coreg, felodipine from home (5 mg ACHS). 5. HLD - continue home atorvastatin 40 mg 6. S/p recent R hip surgery with acute blood loss anemia - orthopedic surgery consulted from the ER, though do not supspect syncope related to surgical issue at this time. - h/h a bit down with Hg of 10.5, likely due to blood loss from surgery. Will continue to monitor. DVT: on eliquis Code: Full, surrogate is patient's spouse I have utilized all available immediate resources to obtain, update, or review the patient's current medications. Discussed with patient's spouse, and ER provider to supplement above history, along with contribute to the above assessmenet and plan. Dispo: admitted observation pending above evalation, likely discharge home in 1- 2 depending on findings.
[2023-10-25 17:44] LABS: Appearance Urine UA CLEAR; Bilirubin Urine UA NEGATIVE (NEGATIVE); Color Urine UA YELLOW; Glucose Urine UA NEGATIVE (Negative); Ketones Urine UA 1+ (NEGATIVE); Leukocyte Esterase Urine UA NEGATIVE (NEGATIVE); Nitrite Urine UA NEGATIVE (Negative); Occult Blood Urine UA 2+ (Negative); Protein Urine UA NEGATIVE (Negative); Specific Gravity Urine UA <=1.005 (1.000-1.035); Urobilinogen Urine UA 0.2 E.U./dL (0.2); pH Urine UA 6.5 (4.5-8.0)
[2023-10-25 17:56] LABS: Bacteria Urine None Seen; Culture Indicated Urine Cult Not Indicated; RBC Urine 1-5/HPF (0-5/HPF); Squamous Epithelial Cell Urine None Seen (0-5/HPF); Urine Volume 10mL (spun); WBC Urine None Seen (0-5/HPF)
[2023-10-25] MEDS: DOCUSATE 100 MG CAPSULE PO (20:59)
[2023-10-25] MEDS: APIXABAN 5 MG TABLET PO (20:59)
[2023-10-25] MEDS: SENNOSIDES 8.6 MG TABLET PO (20:59)
[2023-10-25] MEDS: OXYCODONE IR 5 MG TABLET 2.5 MG PO (21:09)
[2023-10-26] VITALS (13 sets, daily range): BP systolic 112–142; BP diastolic 36–80; PULSE 76–103; RESP 16–17; TEMP 36.3–37.1; O2SAT 93–99
[2023-10-26] MEDS: ONDANSETRON 4 MG/2 ML INJ IV ×2 (02:37→08:53)
[2023-10-26] MEDS: OXYCODONE IR 5 MG TABLET 2.5 MG PO ×2 (02:38→08:54)
[2023-10-26] MEDS: ACETAMINOPHEN 325 MG TABLET 650 MG PO ×4 (02:39→22:01)
[2023-10-26 06:37] LABS: Add Manual Diff / Slide Review NO; Basophils Absolute Auto 0 /uL (0-100); Basophils Percent Auto 0.1 % (0-2); Eosinophils Absolute Auto 100 /uL (0-450); Eosinophils Percent Auto 0.7 % (2-4); Hemoglobin 9.9 g/dL (13.5-17.5); Lymphocytes Absolute Auto 2400 /uL (1100-4500); Mean Corpuscular HGB Conc 34.1 % (30-36); Mean Corpuscular Hemoglobin 29.1 PG (26-34); Mean Corpuscular Volume 85.6 fL (80-100); Monocytes Absolute Auto 1700 /uL (0-900); Monocytes Percent Auto 11.8 % (3-14); Neutrophils Absolute Auto 10000 /uL (1500-7000); Neutrophils Percent Auto 70.4 % (50-75); Platelet Count 206 X10^3/uL (150-400); Red Blood Cell Count 3.39 X10^6/uL (4.5-5.9); Red Cell Distribution Width 13.4 % (11.6-14.8); White Blood Cell Count 14.2 X10^3/uL (4.5-11.0)
[2023-10-26 06:47] LABS: Alanine Aminotransferase 21 IU/L (<50); Albumin 3.3 g/dL (3.5-5.0); Albumin Globulin Ratio 1.1 (1.0-2.8); Alkaline Phosphatase 74 U/L (38-126); Aspartate Aminotransferase 44 IU/L (17-59); BUN Creatinine Ratio 16.4 (6-22); Bilirubin Total 1.4 mg/dL (0.2-1.3); Blood Urea Nitrogen 11 mg/dL (9-20); Calcium 8.5 mg/dL (8.4-10.2); Carbon Dioxide 25 mmol/L (22-32); Chloride 99 mmol/L (98-107); Estimated Glomerular Filt Rate > 60 mL/min (>60); Globulin 3.1 g/dL (1.7-4.1); Glucose 91 mg/dL (80-110); HEMOLYSIS < 15 (0-50); Potassium 3.8 mmol/L (3.4-5.1); Sodium 130 mmol/L (137-145); Total Protein 6.4 g/dL (6.3-8.2)
[2023-10-26] MEDS: ATORVASTATIN 20 MG TABLET 40 MG PO (08:53)
[2023-10-26] MEDS: DOCUSATE 100 MG CAPSULE PO ×2 (08:53→21:05)
[2023-10-26] MEDS: polyethylene glycoL 3350 17 GM POWD.PACK PO (08:53)
[2023-10-26] MEDS: APIXABAN 5 MG TABLET PO ×2 (08:53→21:05)
--- NOTE | 2023-10-26 11:33 | P.PN_ITS ---
Subjective Subjective Interval history: He had 2 syncopal episodes at home and returned to the emergency room where he was admitted to the medicine service. He has minimal hip pain. He has been up with physical therapy. He had a SYDNEE echo done today and the results are pending. He denies any shortness of breath. He is taking his Eliquis. Exam Vital Signs (past 8 hours): - 10/26/23 04:00 10/26/23 06:00 10/26/23 08:00 Temperature 98.0 F 98.6 F Pulse Rate 76 87 Pulse Rate [Orthostatic Lying] Pulse Rate [Orthostatic Sitting] Pulse Rate [Orthostatic Standing] Respiratory Rate 17 16 Blood Pressure 126/80 127/61 Blood Pressure [Orthostatic Lying] Blood Pressure [Orthostatic Sitting] Blood Pressure [Orthostatic Standing] Pulse Oximetry 98 98 98 Oxygen Delivery Method Room Air Oxygen Flow Rate 0 10/26/23 08:00 10/26/23 10:00 Temperature Pulse Rate Pulse Rate [Orthostatic Lying] 93 H Pulse Rate [Orthostatic Sitting] 95 H Pulse Rate [Orthostatic Standing] 103 H Respiratory Rate Blood Pressure Blood Pressure [Orthostatic Lying] 129/66 Blood Pressure [Orthostatic Sitting] 131/36 L Blood Pressure [Orthostatic Standing] 112/61 Pulse Oximetry 94 Oxygen Delivery Method Room Air Oxygen Flow Rate 0 Oxygen Delivery Method Room Air Oxygen Flow Rate 0 Narrative Exam Narrative: He is alert he is oriented he is appropriate he has not short of breath calves are soft bilaterally his right hip dressing is benign he has minimal swelling in his thigh, he has no pain with range of motion in his hip, it is neurologically intact distally Objective Labs 10/26/23 05:50 10/26/23 05:50 Labs: Laboratory Results - last 24 hr 10/25/23 10/25/23 10/26/23 11:21 17:32 05:50 WBC 14.2 H RBC 3.39 L Hgb 9.9 L Hct 29.0 L MCV 85.6 MCH 29.1 MCHC 34.1 RDW 13.4 Plt Count 206 Neut % (Auto) 70.4 Lymph % (Auto) 17.0 L [place] % (Auto) 11.8 Eos % (Auto) 0.7 L Baso % (Auto) 0.1 Neut # (Auto) 93262 H Lymph # (Auto) 2400 [place] # (Auto) 1700 H Eos # (Auto) 100 Baso # (Auto) 0 Sodium 127 L D 130 L Potassium 4.1 3.8 Chloride 96 L 99 Carbon Dioxide 25 25 BUN 14 11 Creatinine 0.66 0.67 Estimated GFR > 60 > 60 BUN/Creatinine Ratio 21.2 16.4 Glucose 129 H 91 Calcium 8.6 8.5 Magnesium 1.9 2.0 Total Bilirubin 1.6 H 1.4 H AST 54 44 ALT 22 21 Alkaline Phosphatase 67 74 Total Creatine Kinase 665 H Troponin I < 0.012 Total Protein 6.7 6.4 Albumin 3.5 3.3 L Globulin 3.2 3.1 Albumin/Globulin Ratio 1.1 1.1 Lipase 57 Urine Color Yellow Urine Appearance Clear Urine pH 6.5 Ur Specific [place] <=1.005 Urine Protein Negative Urine Glucose (UA) Negative Urine Ketones 1+ H Urine Occult Blood 2+ H Urine Nitrate Negative Urine Bilirubin Negative Urine Urobilinogen 0.2 Ur Leukocyte Esterase Negative Urine RBC 1-5/hpf Urine WBC None seen Ur Squamous Epith Cells None seen Urine Bacteria None seen Ur Culture Indicated? Cult not indicated Vol Urine Centrifuged 10ml (spun) [facility] Medical History Anxiety History of syncope History of cardioversion (07/2017) Nonrheumatic aortic valve insufficiency Non-rheumatic mitral regurgitation Pre-diabetes Anemia Chronic right SI joint pain Chronic atrial fibrillation Gait abnormality Right leg pain Right hip pain Chronic anticoagulation Colon polyps (05/18/09) SCCA (squamous cell carcinoma) of skin BCC (basal cell carcinoma of skin) Melanoma (2010) Hyperlipidemia Hypertension Psoriasis (2010) A-fib Surgical History Hx of oral surgery Hx of lymph node excision Hx of tonsillectomy History of radiofrequency ablation procedure for cardiac arrhythmia History of left cataract surgery (01/20/18) History of right cataract surgery (01/06/18) History of colonoscopy with polypectomy (04/15/17) History of colonoscopy with polypectomy (05/18/09) History of melanoma excision (2015) History of melanoma excision (2010) History of vasectomy (1987) Family History Father Cancer Grandfather Stroke Mother Heart disease Grandmother Cancer Grandfather Stroke Grandmother Stroke Sister No problems noted. Social History household members: spouse Smoking Status: Never smoker second hand exposure: No alcohol intake: current substance use type: does not use Assessment & Plan Assessment and plan (1) Hyponatremia: Status: Acute (2) Recurrent syncope: Status: Acute (3) A-fib: Qualifiers: Atrial fibrillation type: unspecified Qualified Code(s): I48.91 - Unspecified atrial fibrillation Status: Acute (4) Status post total hip replacement, right: Status: Acute Assessment & Plan narrative: He has had several episodes of syncope. His fluid status and antihypertensives are being adjusted by Medicine. The results of his SYDNEE or echo is pending. He has been able to mobilize out of bed to a chair. His hip replacement appears to be working reasonably well. Orthopedically I think he can be discharged home as long as he is not having problems with orthostatic hypotension and depending upon the results of his echo. He will keep his previously scheduled therapy and follow-up. I told him we could try tramadol instead of oxycodone in case he is having an adverse reaction to oxycodone.
--- NOTE | 2023-10-26 14:31 | CM.DANOTE ---
Patient is a 77 yo male READMIT on 10/25/23 for Sycopal Episode. Pt has MCR and A[employer] for insurance and his PCP is Sydni Garcia. EMR was reviewed. Per MD, pt with hx of AFIB and Syncope and recently had hip surgery by [facility] on 10/23/23 and discharged home and had two possible syncopal episodes and may be due to pain medications but Echo ordered to confirm. Per Ortho MD, no further orthopedic needs and awaiting medical clearance by Hospitalist. Echo ordered and pending. PT ordered and pending. SW met bedside with pt and spouse and explained role and they confirm they live in [place] at home with no steps to enter. Pt states he has a cane and walker at home, has been instructed in using a gait belt to assist with safe home mobility and pt had an upcoming outpt PT appointment set up for this week. Pt is active and independent at baseline and drives and spouse is available for assist. Spouse is pt's DPOA and SW encouraged them to get a copy to scan into his EMR at either the hospital or his PCP office as they have a copy at home. Pt denies any hx of HH or SNF but states he feels HH RN/PT likely would be beneficial at d/c due to his dizziness/woozy feeling and readmission to the hospital. SW provided the HH Choice list and discussed services and frequency and pt states his preference is [facility]. SW made [facility] referral and sent F2F and HH orders as well. Pt and spouse do not feel pt is stable for discharge yet today and MD updated. Plan: SW to follow closely for Echo results and to confirm [facility] can accept for likely plan of discharge home tomorrow Mon if medically stable via spouse POV. JANETTE Calvo Discharge Planning/Care Management Advanced directive, confirm from FAMILY Start: 10/25/23 14:48 Freq: Q24H Status: Active Protocol: Document 10/25/23 14:48 AKP (Rec: 10/25/23 14:49 AKP [id number]) Advance Directive, confirm on record Time 14:49 Person contacted marina to bring in () Copy received No CM Discharge Assessment Start: 10/26/23 13:59 Freq: Status: Active Protocol: Document 10/26/23 13:59 BF (Rec: 10/26/23 14:31 BF [id number]) Discharge Planning Assessment Assigned Copywriter JANETTE Alfonso DPOA/Assigned Designee Name spouse Marina Contact Information [phone] Advance Directives? Yes Advance Directives on File No History Provided By Patient,Significant Other, Medical Record Has Patient been admitted in last 30 Yes days? Comment Recently had hip surgery on 10/23/23 and discharged home with spouse and returned due to syncopal episode Prior Living Arrangements House Household Members spouse Type of transporation used prior to Drives own vehicle admit Independent with ADL's Yes Is patient alert and oriented? Yes Needs Assistance With Managing Medications Caregiver for Another No Community Services used prior to Physical Therapy admission: DME Already Rented / Owned FWW / Walker,Cane Patient/Family Preference Home with Home Health,OP PT Therapy Comment HH vs outpt PT Barriers to Discharge No Discharge Plan Home with Home Health Community Services Physical Therapy,Home Health Nurse Transportation Arrangement Spouse Referrals Initiated Home Health Additional Comment Made [facility] referral If patient plan is home with home health Yes : Has signed face to face form been completed? Medicare Choice List Provided Yes Medicare choice list reviewed on patient,family electronic tablet with SNF/HH Preference [facility] Whiteboard Updated in Patient Room with Yes name and ext. # of Copywriter Review Status In Process Please Provide Date Initial DC 10/26/23 Assessment Was Performed Next Review Type Continued Stay Review
--- NOTE | 2023-10-26 16:58 | PM.PN.1 ---
Subjective Subjective Interval history: He remains dizzy, sometimes even just sitting up. Orthostatics were positive with SBP dropping 20 points. His BP even at rest today is normotensive to slightly low despite reduction in his usual home antihypertensives. Exam Vital Signs (past 8 hours): - 10/26/23 10:00 10/26/23 12:00 10/26/23 14:00 Temperature 98.3 F Pulse Rate 83 Respiratory Rate 16 Blood Pressure 115/52 L Pulse Oximetry 94 95 94 Oxygen Delivery Method Room Air Room Air Oxygen Flow Rate 0 0 10/26/23 16:00 Temperature 97.4 F L Pulse Rate 82 Respiratory Rate 16 Blood Pressure 127/57 L Pulse Oximetry 99 Oxygen Delivery Method Oxygen Flow Rate Oxygen Delivery Method Room Air Oxygen Flow Rate 0 Narrative Exam Narrative: General:? Patient is well developed and well nourished, in no distress at this time. Appears mildly anxious and mildly uncomfortable shifting frequently. HEENT:? Normocephalic, atraumatic, extraocular muscles intact, oral pharynx is clear and mucous membranes are moist. Neck: supple and symmetric, trachea is midline, no cervical adenopathy. Chest:? Normal AP diameter and contour without kyphoscoliosis, no tachypnea, equal chest rise bilaterally. CV: RRR Extremities: No edema or joint effusions. Neuro:? Alert and orientated x3,? sensation to touch intact in all extremities, no gross deficits noted of cranial nerves. Psych:? Patient has a well-kept appearance, appropriate affect, mental status attitude thought context and judgment are appropriate for age. Objective Labs 10/26/23 05:50 10/26/23 05:50 Labs: Laboratory Results - last 24 hr 10/25/23 10/26/23 17:32 05:50 WBC 14.2 H RBC 3.39 L Hgb 9.9 L Hct 29.0 L MCV 85.6 MCH 29.1 MCHC 34.1 RDW 13.4 Plt Count 206 Neut % (Auto) 70.4 Lymph % (Auto) 17.0 L [place] % (Auto) 11.8 Eos % (Auto) 0.7 L Baso % (Auto) 0.1 Neut # (Auto) 66117 H Lymph # (Auto) 2400 [place] # (Auto) 1700 H Eos # (Auto) 100 Baso # (Auto) 0 Sodium 130 L Potassium 3.8 Chloride 99 Carbon Dioxide 25 BUN 11 Creatinine 0.67 Estimated GFR > 60 BUN/Creatinine Ratio 16.4 Glucose 91 Calcium 8.5 Magnesium 2.0 Total Bilirubin 1.4 H AST 44 ALT 21 Alkaline Phosphatase 74 Total Protein 6.4 Albumin 3.3 L Globulin 3.1 Albumin/Globulin Ratio 1.1 Urine Color Yellow Urine Appearance Clear Urine pH 6.5 Ur Specific [place] <=1.005 Urine Protein Negative Urine Glucose (UA) Negative Urine Ketones 1+ H Urine Occult Blood 2+ H Urine Nitrate Negative Urine Bilirubin Negative Urine Urobilinogen 0.2 Ur Leukocyte Esterase Negative Urine RBC 1-5/hpf Urine WBC None seen Ur Squamous Epith Cells None seen Urine Bacteria None seen Ur Culture Indicated? Cult not indicated Vol Urine Centrifuged 10ml (spun) [facility] Medical History Anxiety History of syncope History of cardioversion (07/2017) Nonrheumatic aortic valve insufficiency Non-rheumatic mitral regurgitation Pre-diabetes Anemia Chronic right SI joint pain Chronic atrial fibrillation Gait abnormality Right leg pain Right hip pain Chronic anticoagulation Colon polyps (05/18/09) SCCA (squamous cell carcinoma) of skin BCC (basal cell carcinoma of skin) Melanoma (2010) Hyperlipidemia Hypertension Psoriasis (2010) A-fib Surgical History Hx of oral surgery Hx of lymph node excision Hx of tonsillectomy History of radiofrequency ablation procedure for cardiac arrhythmia History of left cataract surgery (01/20/18) History of right cataract surgery (01/06/18) History of colonoscopy with polypectomy (04/15/17) History of colonoscopy with polypectomy (05/18/09) History of melanoma excision (2015) History of melanoma excision (2010) History of vasectomy (1987) Family History Father Cancer Grandfather Stroke Mother Heart disease Grandmother Cancer Grandfather Stroke Grandmother Stroke Sister No problems noted. Social History household members: spouse Smoking Status: Never smoker second hand exposure: No alcohol intake: current substance use type: does not use Assessment & Plan Assessment & Plan narrative: 1. Recurrent syncope, orthstatic hypotension - Presenting history is reassuring, and suspect orthostatic hypotension due to probable mild dehydration, anesthesia, and opiates. - orthostatic vitals positive today. - have held all of his home BP medications today. - received fluids in the ER, will not continue at this time. No obvious signs or symptoms of infection, UA was negative yesterday. CXR is unremarkable based on radiology and my evaluation. - monitor with tele for possible arrythmia though unremarkable thus far. - very low probability for ACS, troponin negative EKG with NSR without ST changes, and no chest pain. Will not repeat troponin at this time unless symptoms develop. - with continued orthostasis, ordered PT / OT today. - appreciate orthopedic consultation after recent hip surgery. 2. Paroxysmal atrial fibrillation - history of ablation 2 years ago, sees Dr. Ravi with [facility] cardiology - held home beta marco antonio - continue home eliquis 3. Hyponatremia - will continue to follow, may be due to dehydration and is now s/p fluids in the ER. - Na 127 on admission, improved to 130 today. Continue to follow daily. 4. HTN - hold home clonidine and spironolactone for now. Have held all home antihypertensives today. 5. HLD - continue home atorvastatin 40 mg 6. S/p recent R hip surgery with acute blood loss anemia - orthopedic surgery consulted from the ER, though do not supspect syncope related to surgical issue at this time. - h/h a bit down with Hg of 10.5, likely due to blood loss from surgery. Will continue to monitor. DVT: on eliquis Code: Full, surrogate is patient's spouse Discussed with patient's spouse, and orthopedics provider to supplement above history, along with contribute to the above assessmenet and plan. Dispo: admitted observation, hopeful for discharge home with home health if orthostatic BP improves.
[2023-10-26] MEDS: LATANOPROST 0.005% OPHTH 2.5 ML 1 DROPS EYE-BOTH (21:04)
[2023-10-26] MEDS: SENNOSIDES 8.6 MG TABLET PO (21:05)
[2023-10-27] VITALS (7 sets, daily range): BP systolic 130–144; BP diastolic 65–80; PULSE 74–95; RESP 16–74; TEMP 36.4–37; O2SAT 96–99
[2023-10-27] MEDS: ACETAMINOPHEN 325 MG TABLET 650 MG PO ×2 (04:03→10:31)
[2023-10-27] MEDS: ONDANSETRON 4 MG/2 ML INJ IV (04:04)
[2023-10-27] MEDS: TRAMADOL 50 MG TABLET PO (04:04)
[2023-10-27 06:29] LABS: Add Manual Diff / Slide Review NO; Basophils Absolute Auto 0 /uL (0-100); Basophils Percent Auto 0.2 % (0-2); Eosinophils Absolute Auto 200 /uL (0-450); Eosinophils Percent Auto 1.9 % (2-4); Hematocrit 25.3 % (41-53); Hemoglobin 8.8 g/dL (13.5-17.5); Lymphocytes Absolute Auto 1400 /uL (1100-4500); Lymphocytes Percent Auto 12.7 % (25-40); Mean Corpuscular HGB Conc 34.6 % (30-36); Mean Corpuscular Hemoglobin 29.7 PG (26-34); Mean Corpuscular Volume 85.9 fL (80-100); Monocytes Absolute Auto 1300 /uL (0-900); Monocytes Percent Auto 11.4 % (3-14); Neutrophils Absolute Auto 8200 /uL (1500-7000); Neutrophils Percent Auto 73.8 % (50-75); Platelet Count 212 X10^3/uL (150-400); Red Blood Cell Count 2.95 X10^6/uL (4.5-5.9); Red Cell Distribution Width 13.3 % (11.6-14.8); White Blood Cell Count 11.1 X10^3/uL (4.5-11.0)
[2023-10-27 06:56] LABS: Alanine Aminotransferase 22 IU/L (<50); Albumin 2.9 g/dL (3.5-5.0); Albumin Globulin Ratio 0.9 (1.0-2.8); Alkaline Phosphatase 71 U/L (38-126); Aspartate Aminotransferase 41 IU/L (17-59); BUN Creatinine Ratio 16.7 (6-22); Bilirubin Total 1.2 mg/dL (0.2-1.3); Blood Urea Nitrogen 10 mg/dL (9-20); Calcium 8.2 mg/dL (8.4-10.2); Carbon Dioxide 25 mmol/L (22-32); Chloride 97 mmol/L (98-107); Estimated Glomerular Filt Rate > 60 mL/min (>60); Globulin 3.1 g/dL (1.7-4.1); Glucose 114 mg/dL (80-110); HEMOLYSIS < 15 (0-50); Magnesium 1.8 mg/dL (1.6-2.3); Potassium 3.7 mmol/L (3.4-5.1); Sodium 126 mmol/L (137-145)
[2023-10-27] MEDS: DOCUSATE 100 MG CAPSULE PO (08:34)
[2023-10-27] MEDS: polyethylene glycoL 3350 17 GM POWD.PACK PO (08:34)
[2023-10-27] MEDS: APIXABAN 5 MG TABLET PO (08:34)
[2023-10-27] MEDS: ATORVASTATIN 20 MG TABLET 40 MG PO (08:34)
--- NOTE | 2023-10-27 11:06 | P.PN_ITS ---
Subjective Subjective Interval history: He remains dizzy, sometimes even just sitting up. Pulse increased a bit with standing but improved BP response. Exam Vital Signs (past 8 hours): - 10/27/23 03:18 10/27/23 04:00 10/27/23 07:00 Temperature 98.6 F Pulse Rate 74 Pulse Rate [Orthostatic Lying] 83 Pulse Rate [Orthostatic Sitting] 84 Pulse Rate [Orthostatic Standing] 95 H Respiratory Rate 74 H Blood Pressure 144/80 H Blood Pressure [Orthostatic Lying] 137/69 Blood Pressure [Orthostatic Sitting] 140/72 Blood Pressure [Orthostatic Standing] 133/65 Pulse Oximetry 96 96 Oxygen Delivery Method Room Air Oxygen Flow Rate 0 10/27/23 07:34 10/27/23 08:00 10/27/23 11:00 Temperature 97.5 F L Pulse Rate 86 Pulse Rate [Orthostatic Lying] Pulse Rate [Orthostatic Sitting] Pulse Rate [Orthostatic Standing] Respiratory Rate 16 Blood Pressure 140/75 Blood Pressure [Orthostatic Lying] Blood Pressure [Orthostatic Sitting] Blood Pressure [Orthostatic Standing] Pulse Oximetry 96 99 96 Oxygen Delivery Method Room Air Room Air Oxygen Flow Rate 0 0 Oxygen Delivery Method Room Air Oxygen Flow Rate 0 Narrative Exam Narrative: General:? Patient is well developed and well nourished, in no distress at this time. Appears mildly anxious and mildly uncomfortable shifting frequently. HEENT:? Normocephalic, atraumatic, extraocular muscles intact, oral pharynx is clear and mucous membranes are moist. Neck: supple and symmetric, trachea is midline, no cervical adenopathy. Chest:? Normal AP diameter and contour without kyphoscoliosis, no tachypnea, equal chest rise bilaterally. CV: RRR Extremities: No edema or joint effusions. Neuro:? Alert and orientated x3,? sensation to touch intact in all extremities, no gross deficits noted of cranial nerves. Psych:? Patient has a well-kept appearance, appropriate affect, mental status attitude thought context and judgment are appropriate for age. Objective Labs 10/27/23 05:15 10/27/23 05:15 Labs: Laboratory Results - last 24 hr 10/27/23 05:15 WBC 11.1 H RBC 2.95 L Hgb 8.8 L Hct 25.3 L MCV 85.9 MCH 29.7 MCHC 34.6 RDW 13.3 Plt Count 212 Neut % (Auto) 73.8 Lymph % (Auto) 12.7 L [place] % (Auto) 11.4 Eos % (Auto) 1.9 L Baso % (Auto) 0.2 Neut # (Auto) 8200 H Lymph # (Auto) 1400 [place] # (Auto) 1300 H Eos # (Auto) 200 Baso # (Auto) 0 Sodium 126 L Potassium 3.7 Chloride 97 L Carbon Dioxide 25 BUN 10 Creatinine 0.60 L Estimated GFR > 60 BUN/Creatinine Ratio 16.7 Glucose 114 H Calcium 8.2 L Magnesium 1.8 Total Bilirubin 1.2 AST 41 ALT 22 Alkaline Phosphatase 71 Total Protein 6.0 L Albumin 2.9 L Globulin 3.1 Albumin/Globulin Ratio 0.9 L PFSH Medical History Anxiety History of syncope History of cardioversion (07/2017) Nonrheumatic aortic valve insufficiency Non-rheumatic mitral regurgitation Pre-diabetes Anemia Chronic right SI joint pain Chronic atrial fibrillation Gait abnormality Right leg pain Right hip pain Chronic anticoagulation Colon polyps (05/18/09) SCCA (squamous cell carcinoma) of skin BCC (basal cell carcinoma of skin) Melanoma (2010) Hyperlipidemia Hypertension Psoriasis (2010) A-fib Surgical History Hx of oral surgery Hx of lymph node excision Hx of tonsillectomy History of radiofrequency ablation procedure for cardiac arrhythmia History of left cataract surgery (01/20/18) History of right cataract surgery (01/06/18) History of colonoscopy with polypectomy (04/15/17) History of colonoscopy with polypectomy (05/18/09) History of melanoma excision (2015) History of melanoma excision (2010) History of vasectomy (1987) Family History Father Cancer Grandfather Stroke Mother Heart disease Grandmother Cancer Grandfather Stroke Grandmother Stroke Sister No problems noted. Social History household members: spouse Smoking Status: Never smoker second hand exposure: No alcohol intake: current substance use type: does not use Assessment & Plan Assessment & Plan narrative: 1. Recurrent syncope, orthstatic hypotension - Presenting history is reassuring, and suspect orthostatic hypotension due to probable mild dehydration, anesthesia, and opiates. - orthostatic vitals positive today though improved - have held all of his home BP medications today. - received fluids in the ER, will not continue at this time. No obvious signs or symptoms of infection, UA was negative yesterday. CXR is unremarkable based on radiology and my evaluation. - monitor with tele for possible arrythmia though unremarkable thus far. - very low probability for ACS, troponin negative EKG with NSR without ST changes, and no chest pain. Will not repeat troponin at this time unless symptoms develop. - with continued orthostasis, ordered PT / OT today. - appreciate orthopedic consultation after recent hip surgery. 2. Paroxysmal atrial fibrillation - history of ablation 2 years ago, sees Dr. Ravi with [facility] cardiology - held home beta marco antonio - continue home eliquis 3. Hyponatremia - will continue to follow, may be due to dehydration and is now s/p fluids in the ER. - Na 127 on admission, improved to 130 today. Continue to follow daily. 4. HTN - hold home clonidine and spironolactone for now. Have held all home antihypertensives today. 5. HLD - continue home atorvastatin 40 mg 6. S/p recent R hip surgery with acute blood loss anemia - orthopedic surgery consulted from the ER, though do not supspect syncope related to surgical issue at this time. - h/h a bit down with Hg of 10.5, likely due to blood loss from surgery. Will continue to monitor. DVT: on eliquis Code: Full, surrogate is patient's spouse Discussed with patient's spouse, and orthopedics provider to supplement above history, along with contribute to the above assessmenet and plan. Dispo: admitted observation, hopeful for discharge home with home health if orthostatic BP improves.
--- NOTE | 2023-10-27 11:10 | OT.IP.EVAL ---
Current Diagnoses Hypo-osmolality and hyponatremia (10/27/23) Unspecified atrial fibrillation (10/27/23) Syncope and collapse (10/27/23) Presence of right artificial hip joint (10/27/23) Past Medical History (Last Reviewed 10/25/23 @ 16:00 by Harpreet Santos DO) A-fib Anemia Anxiety BCC (basal cell carcinoma of skin) Chronic anticoagulation Chronic atrial fibrillation Chronic right SI joint pain Colon polyps (05/18/09) Gait abnormality History of cardioversion (07/2017) History of syncope Hyperlipidemia Hypertension Melanoma (2010) Non-rheumatic mitral regurgitation Nonrheumatic aortic valve insufficiency Pre-diabetes Psoriasis (2010) Right hip pain Right leg pain SCCA (squamous cell carcinoma) of skin Surgical History (Last Reviewed 10/25/23 @ 16:00 by Harpreet Santos DO) History of colonoscopy with polypectomy (05/18/09) History of colonoscopy with polypectomy (04/15/17) History of left cataract surgery (01/20/18) History of melanoma excision (2010) History of melanoma excision (2015) History of radiofrequency ablation procedure for cardiac arrhythmia History of right cataract surgery (01/06/18) History of vasectomy (1987) Hx of lymph node excision Hx of oral surgery Hx of tonsillectomy Occupational Therapy Inpatient Evaluation/Re-Eval M1 PT/OT-IP Prior Functional Status Start: 10/27/23 08:59 Freq: NEEDED Status: Active Protocol: Document 10/27/23 15:14 CGR (Rec: 10/27/23 15:26 CGR [id number]) Medical Review Prior Functional Status Medical History Reviewed Yes Communication Pt is an effective verbal communicator but is [place]. Mobility and Gait Pt was MOD I with use of a FWW after 10/23/23 R GLEN. Activities of Daily Living and IADL's Pt was IND in all ADLs prior to the 10/23/23 sx but now is getting assist from his spouse . Social History Household Members spouse Living Arrangements House Number of Floors (Floors) Two Floors Number of Stairs To Enter/Railing? Pt has a level entry and can stay on the first level of the home. 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 Pt sleeps in a recliner d/t hip pain. M2 OT-IP Current Condition Start: 10/27/23 15:13 Freq: Status: Active Protocol: Document 10/27/23 15:14 CGR (Rec: 10/27/23 15:26 CGR [id number]) Occupational Therapy Current Condition Current Condition Evaluation Date 10/27/23 Treatment Diagnosis syncope, orthostatic hypotension Diagnosis Onset Date 10/25/23 Weight Bearing Status Weight Bearing Status Weight Bear as Tolerated M3 OT- IP Subjective and Pain Start: 10/27/23 15:13 Freq: Status: Active Protocol: Document 10/27/23 15:14 CGR (Rec: 10/27/23 15:26 CGR [id number]) OT- Subjective Occupational Therapy Visit Type Type Initial Evaluation Visit Start Time 10:33 Visit Stop Time 11:10 Notes Pt's spouse present throughout session. OT Pain Assessment Pain When Pain Assessed At Rest Pain Present Pain Present Pain Reported Location Right Hip Intensity 1 Scale Used Numeric (0 - 10) Management Techniques Modification of Treatment,Re- positioning M4 OT- IP ADL's Start: 10/27/23 15:13 Freq: Status: Active Protocol: Document 10/27/23 15:14 CGR (Rec: 10/27/23 15:26 CGR [id number]) OT [id number] Comments OT Self-Feeding Comments not meal time OT ADL-Grooming General Evaluation Grooming Ability Standby Assistance Areas Needing Assistance Face Washing Comments OT Grooming Comments standing at sink OT ADL-Oral Care General Eval Oral Care Ability Standby Assistance Areas of Assistance Brushing Teeth Comments Oral Care Comments standing at sink OT ADL-Dressing Comments OT Dressing Comments not performed OT ADL-Toileting General Evaluation Toileting Ability Standby Assistance Devices Toileting Assistive Devices Grab Bars Comments OT Toileting Comments seated on toilet for urination OT ADL-Bathing Comments OT Bathing Comments not performed M5 OT- IP IADL's Start: 10/27/23 15:13 Freq: Status: Active Protocol: Document 10/27/23 15:14 CGR (Rec: 10/27/23 15:26 CGR [id number]) OT-Instrumental Activities of Daily Living Deficits IADL Deficits Identified No Deficits Home Safety Awareness Awareness of Need for Assistance at Home Good Awareness Ability to Problem Solve Emergency Able to Problem Solve Situations Medication Management Medication Management No Deficits Identified Money Management Money Management No Deficits Identified Meal Preparation Meal Preparation Caregiver Provides Assist Front Line Leader Front Line Leader Caregiver Provides Assist Driving Driving Comments 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 M6 OT- IP Functional Cognition Start: 10/27/23 15:13 Freq: Status: Active Protocol: Document 10/27/23 15:14 CGR (Rec: 10/27/23 15:26 CGR [id number]) Cognitive Factors Limiting Selfcare Function Cognitive Ability Level of Alertness Alert Patient Orientation Name,Age,Birthday,Month,Date, Year,Day of Week,Place, Situation Attention Span Ability Capable of Focused Attention, Capable of Sustained Attention Ability to Follow Commands Able to Follow One Step Commands with Increased Time, Able to Follow One Step Commands with Repetition OT- Vision and Hearing OT- Hearing Assessment OT- Hearing Assessment Hearing Impaired,Use of Hearing Aids OT- Vision Assessment Visual Acuity Glasses All The Time Visual Attentiveness WFL Occular Pursuits WFL Visual Convergence WFL Vision Assessment Comments pt wears bifocals M7 OT- IP Mobility and Balance Start: 10/27/23 15:13 Freq: Status: Active Protocol: Document 10/27/23 15:14 CGR (Rec: 10/27/23 15:26 CGR [id number]) OT- Bed Mobility Assessment Supine to Sit Supine to Sit Assist Standby Assistance Scooting Scooting to Edge of Bed Standby Assistance OT-Transfer Assessment Sit to and From Stand Sit to and from Stand Standby Assistance Transfers Transfer Ability Standby Assistance Technique Transfer Destination Bed,Chair,Toilet Transfer Technique Stand Step Pivot Devices Transfer Assistive Devices Gait Belt,Front Wheeled Walker Comments Mobility Comments BP taken in sitting 132/69 ( 104) standing 117/57 (79) Pt states no nausea or dizziness. OT- Balance Assessment Sitting Balance and Reactions Static Sitting Balance Ability Good Dynamic Sitting Balance Ability Good M8 OT- IP Objective Assessments Start: 10/27/23 15:13 Freq: Status: Active Protocol: Document 10/27/23 15:14 CGR (Rec: 10/27/23 15:26 CGR [id number]) OT Gross Range of Motion Upper Extremity Range of Motion Assessment Within Functional Limits OT Strength Upper Extremity Strength Assessment Within Functional Limits Comments Strength Comments 5/5 OT- Coordination Assessment Upper Extremity Finger to Nose Test Within Functional Limits Finger Tapping Test Within Functional Limits OT-Muscle Tone Assessment Muscle Tone WNL Yes OT Sensation Assessment Edema Edema Absent M9 OT- IP Assessment and Plan Start: 10/27/23 15:13 Freq: Status: Active Protocol: Document 10/27/23 15:14 CGR (Rec: 10/27/23 15:26 CGR [id number]) OT Summary Assessment and Plan Potential Rehabilitation Potential Excellent Analytic Complexity at Evaluation Low Summary OT Impairments Functional Mobility,Grooming, Dressing,Toileting,Bathing, Toilet Transfers,Shower Transfers,Activity Tolerance Progress Towards Goals Progressing Toward Goals Assessment Summary Pt presents as a low complexity evaluation s/p admit for syncope. Pt is orthostatic in todays session, see BPs listed above, but is able to participate in activity. Educated pt and his at length abut safety and monitoring of BP with mobility, toileting, etc. Pt and state understanding and are feeling ready to discharge home. Notified MD. Goals Grooming Goal Independent Dressing Goal Independent Toileting Goal Independent Bathing Goal Independent Toilet Transfer Goal Independent Shower Transfer Goal Independent Days to Meet Goals 2 Frequency of Treatment Frequency Of Treatment Once a Day Treatment Plan OT Treatment Plan ADL Training,Functional Mobility,Patient/Family Education,Discharge Planning Discharge Recommendations OT Discharge Recommendations Home with Assistance Transportation Needs at Discharge Private Vehicle
--- NOTE | 2023-10-27 11:22 | P.DS_ITS ---
History of Present Illness History of Present Illness Date Patient Seen: 10/27/23 Time Patient Seen: 11:22 Chief complaint: Syncope Narrative: This is a 77 year old male with PMH of paroxysmal afib s/p ablation 2 years ago, HTN, HLD, prior syncope (admit to [facility], reports due to afib but per discharge summary due to orthostatic hypotension) with recent total R hip surgery on 10/23/23 who presented to the ER today after 2 episodes of syncope. He was discharged from the hospital yesterday after his hip surgery. He has not eaten much since surgery, but did eat normally yesterday. He had a normal bowel movement yesterday and denies melena or BRBPR. He denies fever, chills, or chest pain. At around 9 pm he took an oxycodone yesterday, he was up at his dresser in the bedroom when he began to feel nauseous and passed out briefly. He did not fall. He went to bed, and this morning went to go to the restroom and felt nauseous again and then remembers waking up on the floor. He complains of R hip pain but no other complaints currently. He denies palpitations prior to his syncopal episodes. Last echo was in 2020. Given recurrent syncope, past afib with remote ablation, and past reports of aortic insufficiency and mitral regurg, last echo 3 years ago he was admitted for further evaluation for possible cardiac syncope. Discharge Providers Provider Date of admission: 10/25/23 13:31 Discharge Date: 10/27/23 Primary care physician: MONA Martinez Consults: 10/25/23 13:29 Consult to Orthopedic Surgery Stat Comment: Consulting Provider: Vanessa Bowles Reason for consultation: Syncope, recent total hip Has provider been notified: Yes 10/26/23 16:59 Consult to Occupational Therapy Evaluate & Treat Comment: Physician Instructions: Evaluate and treat Consult to Physical Therapy Evaluate & Treat Comment: Physician Instructions: Evaluate and Treat Discharge provider: Harpreet Santos DO Summary Hospital Course Discharge Diagnosis: 1. Recurrent syncope, orthstatic hypotension 2. Paroxysmal atrial fibrillation 3. Hyponatremia 4. HTN 5. HLD 6. S/p recent R hip surgery with acute blood loss anemia Hospital Course: This is a 77 year old male with PMH of orthostatic hypotension, paroxysmal afib, HTN, HLD who presented after being recently discharged following R hip surgery after 2 episodes of syncope. He was admitted for cardiac evaluation given history of afib and prior syncopal admission at outside hospital. Echocardiogram was unchanged to prior with normal EF and no WMA. Telemetry monitoring was unremarkable. He was orthostatic with SBP drop of 20 points with standing. and continued to be so even on the day of discharge. His sodium was between 126-130 during the admission, though the etiology is not known. On the day of discharge, urine sodium was ordered but is currently pending. He reports prior hyponatremia as an outpatient as well. PT and OT was consulted, and on HD#2 patient felt improved and was no longer dizzy. All of his home BP medications were held and his blood pressures were normal on the day of discharge. Recommend cessation of all BP medications for now, with recommendation to resume coreg first if he becomes hypertensive. Discussed with patient ongoing monitoring as orthostatics were still positive and his sodium level was 126, but patient wished to discharge home. Given likely chronic hyponatremia with improvement in symptoms, and patient's comprehension of the risks and benefits of discharge, he was discharged home. I did order repeat BMP for tomorrow to be done as an outpatient to make sure his sodium is not worsening. He also has the pending urine sodium level as noted above. Time Spent with Patient Time spent: Greater than 30 minutes Exam Vital Signs (past 8 hours): - 10/27/23 04:00 10/27/23 07:00 10/27/23 07:34 Temperature 98.6 F Pulse Rate 74 Pulse Rate [Orthostatic Lying] 83 Pulse Rate [Orthostatic Sitting] 84 Pulse Rate [Orthostatic Standing] 95 H Respiratory Rate 74 H Blood Pressure 144/80 H Blood Pressure [Orthostatic Lying] 137/69 Blood Pressure [Orthostatic Sitting] 140/72 Blood Pressure [Orthostatic Standing] 133/65 Pulse Oximetry 96 96 Oxygen Delivery Method Room Air Oxygen Flow Rate 0 0 10/27/23 08:00 10/27/23 11:00 Temperature 97.5 F L Pulse Rate 86 Pulse Rate [Orthostatic Lying] Pulse Rate [Orthostatic Sitting] Pulse Rate [Orthostatic Standing] Respiratory Rate 16 Blood Pressure 140/75 Blood Pressure [Orthostatic Lying] Blood Pressure [Orthostatic Sitting] Blood Pressure [Orthostatic Standing] Pulse Oximetry 99 96 Oxygen Delivery Method Room Air Oxygen Flow Rate 0 Oxygen Delivery Method Room Air Oxygen Flow Rate 0 Narrative Exam Narrative: General:? Patient is well developed and well nourished, in no distress at this time. Appears mildly anxious and mildly uncomfortable shifting frequently. HEENT:? Normocephalic, atraumatic, extraocular muscles intact, oral pharynx is clear and mucous membranes are moist. Neck: supple and symmetric, trachea is midline, no cervical adenopathy. Chest:? Normal AP diameter and contour without kyphoscoliosis, no tachypnea, equal chest rise bilaterally. CV: RRR Extremities: No edema or joint effusions. Neuro:? Alert and orientated x3,? sensation to touch intact in all extremities, no gross deficits noted of cranial nerves. Psych:? Patient has a well-kept appearance, appropriate affect, mental status attitude thought context and judgment are appropriate for age. Objective Labs 10/27/23 05:15 10/27/23 05:15 Labs: Laboratory Results - last 24 hr 10/27/23 05:15 WBC 11.1 H RBC 2.95 L Hgb 8.8 L Hct 25.3 L MCV 85.9 MCH 29.7 MCHC 34.6 RDW 13.3 Plt Count 212 Neut % (Auto) 73.8 Lymph % (Auto) 12.7 L [place] % (Auto) 11.4 Eos % (Auto) 1.9 L Baso % (Auto) 0.2 Neut # (Auto) 8200 H Lymph # (Auto) 1400 [place] # (Auto) 1300 H Eos # (Auto) 200 Baso # (Auto) 0 Sodium 126 L Potassium 3.7 Chloride 97 L Carbon Dioxide 25 BUN 10 Creatinine 0.60 L Estimated GFR > 60 BUN/Creatinine Ratio 16.7 Glucose 114 H Calcium 8.2 L Magnesium 1.8 Total Bilirubin 1.2 AST 41 ALT 22 Alkaline Phosphatase 71 Total Protein 6.0 L Albumin 2.9 L Globulin 3.1 Albumin/Globulin Ratio 0.9 L [facility] Medical History Anxiety History of syncope History of cardioversion (07/2017) Nonrheumatic aortic valve insufficiency Non-rheumatic mitral regurgitation Pre-diabetes Anemia Chronic right SI joint pain Chronic atrial fibrillation Gait abnormality Right leg pain Right hip pain Chronic anticoagulation Colon polyps (05/18/09) SCCA (squamous cell carcinoma) of skin BCC (basal cell carcinoma of skin) Melanoma (2010) Hyperlipidemia Hypertension Psoriasis (2010) A-fib Surgical History Hx of oral surgery Hx of lymph node excision Hx of tonsillectomy History of radiofrequency ablation procedure for cardiac arrhythmia History of left cataract surgery (01/20/18) History of right cataract surgery (01/06/18) History of colonoscopy with polypectomy (04/15/17) History of colonoscopy with polypectomy (05/18/09) History of melanoma excision (2015) History of melanoma excision (2010) History of vasectomy (1987) Family History Father Cancer Grandfather Stroke Mother Heart disease Grandmother Cancer Grandfather Stroke Grandmother Stroke Sister No problems noted. Social History household members: spouse Smoking Status: Never smoker second hand exposure: No alcohol intake: current substance use type: does not use Discharge Plan Discharge Plan Patient Disposition: Home Provider Discharge Comment: You were admitted to the hospital with orthostatic hypotension causing syncope. This improved somewhat holding your BP medications. Continue to hold home BP medications and monitor BP at home. If your blood pressure begins to rise (with top # >150-160) and no dizziness when standing I would begin to take your carvedilol first. Please follow up with your PCP for ongoing management of BP moving forward. Repeat blood test for outpatient to recheck sodium placed for tomorrow. Discharge orders & Medications Prescriptions: New tramadol 50 mg Tablet 50 mg PO TID PRN (Reason: Pain, Moderate (4-6)) 7 Days Qty: 20 0RF Continued latanoprost 0.005 % drops 1 drp OPHTH HS Qty: 0 Eliquis 5 mg tablet 5 mg PO BID acetaminophen 500 mg Tablet 500 mg PO BID-TID PRN (Reason: Pain) docusate sodium 100 mg Capsule 100 mg PO BID PRN (Reason: constipation) Qty: 30 0RF aspirin 81 mg Tablet,Delayed Release (Dr/Ec) 81 mg PO BID Qty: 90 0RF ondansetron 4 mg Tablet,Disintegrating 4 mg PO Q4HR PRN (Reason: Nausea) Qty: 30 0RF atorvastatin 40 mg tablet 40 mg PO QAM Patient Comments: Pt takes in am Discontinued carvedilol 12.5 mg tablet 18.75 mg PO BID Qty: 270 3RF Rx Instructions: must administer with a meal/food lisinopril 40 mg tablet 40 mg PO DAILY Qty: 90 3RF Rx Instructions: Take 1 tab daily for BP, goal <130/80 consistently clonidine HCl 0.1 mg tablet 0.1 mg PO .every 2 hours PRN (Reason: hypertensive emergency) Patient Comments: Take 1 tab every 2 hours as needed for systolic BP >180. clonidine [[id number]] 0.1 mg/24 hr patch weekly 1 patch transdermal QWEEK Qty: 12 3RF Rx Instructions: Apply topically to a non-hairy area, rotating sites, weekly for hypertension spironolactone 25 mg tablet 12.5 mg PO DAILY Qty: 90 3RF Rx Instructions: Tale 1/2 tab daily per cardiology oxycodone 5 mg Tablet 5 mg PO Q4-6H PRN (Reason: Pain, Moderate (4-6)) Qty: 30 0RF felodipine 5 mg tablet extended release 24 hr 5 mg PO ACHS Follow up/Referrals: Sydni Garcia ARNP [Primary Care Provider] - Other Ambulatory Orders: Basic Metabolic Panel (Routine) Timeframe: 1 Day Facility: [facility] - Location: Laboratory Ordered By: Harpreet Santos Diet/Activity/Treatments Diet: Diet as Tolerated and Regular Activity: No changes from previous instruction from orthopedics providers Visit Report/Discharge Packet Instructions: DI for Hyponatremia Stand Alone Forms: Patient Portal/API, Stroke Signs & Symptoms Discharge Data Primary Care Provider: Sydni Garcia
--- NOTE | 2023-10-27 12:34 | CM.DPC ---
DCP Discharge Home with Per MD, pt's sodium had dropped and H&H was a little low but pt made improvements and worked with PT/OT and medically stable to d/c home with today. Gemma from [facility] confirmed she received the new referral yesterday and they can accept and already received the F2F and HH orders and ZAYRA Kaufman alerted [facility] to pt's discharge home today. Per RN, no concerns noted and spouse bedside for d/c instructions and to provide transport home. Plan: Patient to discharge home via spouse POV and [facility] to follow for RN/PT until pt more stable for outpt PT. JANETTE Calvo
[2023-10-29 19:14] LABS: Sodium Urine Random 18 mmol/L (30-90)
== END 2023-10-27 12:06 | disposition home health service (06) | DRG 312 ==
LOC: ED 13:30 → AC 13:31
PROVIDERS: Admitting Provider Internal Medicine; Emergency Provider Emergency Medicine; PCP Nurse Practitioner; Visit Provider Internal Medicine
DX: I95.1 Orthostatic hypotension (principal); D62 Acute posthemorrhagic anemia; E87.1 Hypo-osmolality and hyponatremia; I48.0 Paroxysmal atrial fibrillation; I10 Essential (primary) hypertension; E78.5 Hyperlipidemia, unspecified; Z79.01 Long term (current) use of anticoagulants
CPT/HCPCS: 36415; 71045; 73502; 80053; 81001; 82550; 83690; 83735; 84300; 84484; 85025; 85610; 85730; 93005; 93306; 96374; 97165; 97530; 97535; 99284; G0378; J0690; J2405

== ENCOUNTER → 2023-10-28 09:23 | Outpatient (CLI) | payer MEDICARE, SELFPAY ==
[2023-10-25 14:30] VITALS: BMI 30.4
[2023-10-28 12:27] LABS: BUN Creatinine Ratio 13.6 (6-22); Blood Urea Nitrogen 9 mg/dL (9-20); Carbon Dioxide 27 mmol/L (22-32); Chloride 97 mmol/L (98-107); Estimated Glomerular Filt Rate > 60 mL/min (>60); Glucose 96 mg/dL (80-110); HEMOLYSIS < 15 (0-50); Potassium 4.4 mmol/L (3.4-5.1); Sodium 130 mmol/L (137-145)
== END ==
PROVIDERS: PCP Nurse Practitioner; Referring Provider Internal Medicine; Visit Provider Internal Medicine
DX: E87.1 Hypo-osmolality and hyponatremia (principal)
CPT/HCPCS: 36415; 80048

== ENCOUNTER → 2023-11-05 13:51 | Outpatient (CLI) | payer MEDICARE, SELFPAY ==
[2023-10-29 17:13] VITALS: BMI 30.4
== END ==
LOC: CAR 13:51
PROVIDERS: PCP Nurse Practitioner; Referring Provider Nurse Practitioner; Visit Provider Nurse Practitioner
DX: R55 Syncope and collapse (principal); I48.91 Unspecified atrial fibrillation; I48.92 Unspecified atrial flutter
CPT/HCPCS: 93246

== ENCOUNTER → 2023-11-24 14:48 | Outpatient (CLI) | payer MEDICARE, SELFPAY ==
[2023-10-29 17:13] VITALS: BMI 30.4
[2023-11-24 15:39] LABS: Hematocrit 36.4 % (41-53); Hemoglobin 12.4 g/dL (13.5-17.5); Mean Corpuscular HGB Conc 34.1 % (30-36); Mean Corpuscular Hemoglobin 30.1 PG (26-34); Mean Corpuscular Volume 88.3 fL (80-100); Platelet Count 265 X10^3/uL (150-400); Red Blood Cell Count 4.12 X10^6/uL (4.5-5.9); Red Cell Distribution Width 15.3 % (11.6-14.8); White Blood Cell Count 7.6 X10^3/uL (4.5-11.0)
[2023-11-24 15:41] LABS: Add Manual Diff / Slide Review YES
[2023-11-24 15:59] LABS: Neutrophils Absolute Manual 4028 /uL (3000-5900); RBC Morphology Normal Morphology; Total Cells Counted 100
== END ==
PROVIDERS: PCP Nurse Practitioner; Referring Provider Nurse Practitioner; Visit Provider Nurse Practitioner
DX: E78.2 Mixed hyperlipidemia (principal); I10 Essential (primary) hypertension; D64.9 Anemia, unspecified
CPT/HCPCS: 36415; 85007; 85025

== ENCOUNTER 2024-01-03 08:26 | Emergency (ER) | payer MEDICARE, SELFPAY ==
[2023-10-29 17:13] VITALS: BMI 30.4
[2024-01-03] VITALS (50 sets, daily range): BP systolic 95–155; BP diastolic 53–88; PULSE 55–175; RESP 9–40; TEMP 36.5–36.7; O2SAT 89–100; BMI 27.8
--- NOTE | 2024-01-03 08:42 | DI.RAD.S_ITS ---
PROCEDURE: XR CHEST 1V INDICATIONS: chest pain TECHNIQUE: One view of the chest was acquired. COMPARISON: [facility], CR, XR CHEST 1V, 10/25/2023, 11:23. FINDINGS: Surgical changes and devices: None. Lungs and pleura: Lungs are clear. No pleural effusions or pneumothorax. Mediastinum: Mediastinal contours appear normal. Heart size is normal. Bones and chest wall: No suspicious bony lesions. Overlying soft tissues appear unremarkable. IMPRESSION: No acute pulmonary process. Dictated by: Jenna Gaines M.D. on 01/03/2024 at 9:01 Approved by: Jenna Gaines M.D. on 01/03/2024 at 9:02
[2024-01-03 08:51] LABS: Add Manual Diff / Slide Review NO; Basophils Absolute Auto 0 /uL (0-100); Basophils Percent Auto 0.3 % (0-2); Eosinophils Absolute Auto 100 /uL (0-450); Eosinophils Percent Auto 1.2 % (2-4); Hematocrit 41.8 % (41-53); Lymphocytes Absolute Auto 2200 /uL (1100-4500); Lymphocytes Percent Auto 20.6 % (25-40); Mean Corpuscular HGB Conc 33.4 % (30-36); Mean Corpuscular Volume 86.8 fL (80-100); Monocytes Absolute Auto 800 /uL (0-900); Monocytes Percent Auto 7.8 % (3-14); Neutrophils Absolute Auto 7500 /uL (1500-7000); Neutrophils Percent Auto 70.1 % (50-75); Platelet Count 224 X10^3/uL (150-400); Red Blood Cell Count 4.81 X10^6/uL (4.5-5.9); Red Cell Distribution Width 14.7 % (11.6-14.8); White Blood Cell Count 10.6 X10^3/uL (4.5-11.0)
--- NOTE | 2024-01-03 08:55 | ED.ARRPALP ---
HPI - Arrhythmia/Palpitations General Chief Complaint: Arrhythmia/Palpitations Stated Complaint: recurring AFIB Time Seen by Provider: 01/03/24 08:27 Source: patient Mode of arrival: Ambulatory Limitations: no limitations History of Present Illness HPI narrative: 78-year-old male history of atrial fibrillation, hypertension, dyslipidemia on Eliquis, patient has prior a prior cardioversion, ablation has not had any issues for several years until October 23. He had hip replacement developed atrial fibrillation/syncope. Patient has had an echo and Holter monitor in October. He felt symptoms started on Friday. He states he can feel his heart racing, sometimes he will feel wave and sort of feel weak but has not had any syncope. He is felt lightheaded on occasion. That can be with exertion or seated. Denies chest pain or pressure, no shortness of breath, no nausea or vomiting, no issues with bowel movements, no swelling of extremities. Patient has noted he felt a little dry in his mouth last day or two. His weight has been stable on checked this week. Patient states he was in contact with his primary care who had him double his metoprolol from 12.5 mg b.i.d. to 25 mg b.i.d. he was in contact with Cardiology yesterday they both encouraged him to come to the ED today if symptoms were persisting. Patient's primary care provider Sydni garcia. Dr. Ravi is his hazardous materials driver. Related Data Home Medications Medication Instructions Recorded Confirmed latanoprost 0.005 % eye drops 1 dena ANN HS ##0 06/25/17 01/03/24 apixaban 5 mg tablet (Eliquis) 5 mg PO BID 05/17/19 01/03/24 acetaminophen 500 mg tablet 500 mg PO BID-TID PRN Pain 10/16/23 01/03/24 atorvastatin 40 mg tablet 40 mg PO QAM 10/25/23 01/03/24 Previous Rx's Medication Instructions Recorded docusate sodium 100 mg capsule 100 mg PO BID PRN constipation #30 10/24/23 caps felodipine 5 mg tablet,extended 5 mg PO DAILY #90 tabs 12/03/23 release 24 hr carvedilol 25 mg tablet 25 mg PO Q12H #60 tabs 01/01/24 Allergies Allergy/AdvReac Type Severity Reaction Status Date / Time amlodipine AdvReac Mild Flushing Verified 10/29/23 15:57 Review of Systems Review of Systems ROS Unobtainable: All systems reviewed & are unremarkable except as noted in HPI and below Patient History Medical History Anxiety History of syncope History of cardioversion (07/2017) Nonrheumatic aortic valve insufficiency Non-rheumatic mitral regurgitation Pre-diabetes Anemia Chronic atrial fibrillation Chronic anticoagulation Colon polyps (05/18/09) SCCA (squamous cell carcinoma) of skin BCC (basal cell carcinoma of skin) Melanoma (2010) Hyperlipidemia Hypertension Psoriasis (2010) A-fib Surgical History Hx of oral surgery Hx of lymph node excision Hx of tonsillectomy History of radiofrequency ablation procedure for cardiac arrhythmia History of left cataract surgery (01/20/18) History of right cataract surgery (01/06/18) History of colonoscopy with polypectomy (04/15/17) History of colonoscopy with polypectomy (05/18/09) History of melanoma excision (2015) History of melanoma excision (2010) History of vasectomy (1987) Family History Father Cancer Grandfather Stroke Mother Heart disease Grandmother Cancer Grandfather Stroke Grandmother Stroke Sister No problems noted. Social History household members: spouse Smoking Status: Never smoker second hand exposure: No alcohol intake: current substance use type: does not use Smoking Status: Never smoker alcohol intake frequency: holidays/special occasions only Substance Use Type: does not use Exam Narrative Exam Narrative: GENERAL: Alert and oriented x three, well-appearing male in mild distress. HEENT: Head normocephalic, atraumatic, EOMI, pupils reactive, face symmetric, moist mucous membranes NECK: Supple, full range of motion CARDIOVASCULAR: Irregular regularly and tachycardic rate and rhythm without murmurs, rubs or gallops. No JVD. No edema bilateral lower extremities. RESPIRATORY: Breath sounds equal bilaterally, no wheezes rales or rhonchi. No tachypnea or accessory muscle use. ABDOMEN: Soft, nontender. Normoactive bowel sounds all 4 quadrants. No guarding or rebound, rigidity, no mass : No CVA tenderness EXTREMITIES: Normal range of motion, no clubbing or edema. Neurovascularly intact NEUROLOGICAL: Cranial nerves II through XII grossly intact. Moving all extremities SKIN: Warm, dry, no petechiae, no rashes or lesions. Initial Vital Signs Initial Vital Signs: Vital Signs Temperature 98.1 F 01/03/24 08:32 Pulse Rate 149 H 01/03/24 08:32 Respiratory Rate 20 01/03/24 08:32 Blood Pressure 136/70 01/03/24 08:32 Pulse Oximetry 97 01/03/24 08:32 Oxygen Delivery Method Room Air 01/03/24 08:32 Procedures Cardioversion Consent Signed: Yes Indication: AFib with RVR Stability: Stable Number of attempts (shocks): 1 Joules used: 120 Cardiac rhythm post-cardioversion: NSR Procedural Sedation Consent signed: Yes Time out performed: Yes Indication: cardioversion ASA Class: II Mallampati Airway Classification: Class II Time of Last PO Intake: 20:00 Preparation: bus monitor applied, pulse oximeter, capnometry used, supplemental O2 applied, suction/airway equipment at bedside and IV secured IV Propofol dose (mg): 40 ED Sedation Level: Moderate (Concious) Patient Tolerated Procedure: Well Complications: hypoventilation Interventions: Airway repositioned and Assist by BVM (1-2 minutes intermittent BVM. ) Course Orders Ordered: ED Orders 01/03/24 08:35 EKG-12 Lead Stat 01/03/24 08:42 XR chest 1V Stat BNP [NT-proBNP (BNP-Adult 18+)] Stat Complete Blood Count AUTO DIFF Stat Comprehensive Metabolic Panel Stat D Dimer Stat Lipase Stat Magnesium Stat PTT Partial Thromboplastin Tom Stat Prothrombin Time INR Stat Troponin & CK Cardiac Panel Stat 01/03/24 09:24 CT angio chest PE protocol Stat Discontinued Medications Aspirin (Aspirin 81 Mg Chew Tab) 324 mg PO NOW ONE Stop: 01/03/24 08:43 Last Admin: 01/03/24 08:47 Dose: Not Given Documented By: JANIE Diltiazem HCl (Diltiazem 5 Mg/Ml Sdv) 10 mg IV NOW ONE Stop: 01/03/24 08:55 Last Admin: 01/03/24 09:01 Dose: 10 mg Documented By: JANIE Sodium Chloride (Normal Saline 0.9%) 1,000 mls @ 1,000 mls/hr IV BOLUS ONE Stop: 01/03/24 09:53 Last Infusion: 01/03/24 09:55 Dose: Infused Documented By: ANA LILIA Admin: 01/03/24 09:01 Dose: 1,000 mls/hr Documented By: JANIE Propofol (Propofol 200 Mg/20 Ml Vial) 85 mg 1 mg/kg (85 mg) IV NOW ONE Stop: 01/03/24 10:46 Last Admin: 01/03/24 11:17 Dose: 85 mg Documented By: ANA LILIA Vital Signs Vital signs: Vital Signs - 8 hr 01/03/24 08:32 01/03/24 08:32 01/03/24 08:32 Temperature 98.1 F Pulse Rate 149 H 78 Respiratory Rate 20 Blood Pressure 136/70 136/87 Pulse Oximetry 97 98 Oxygen Delivery Method Room Air Oxygen Flow Rate 01/03/24 08:35 01/03/24 08:40 01/03/24 08:45 Temperature Pulse Rate 169 H 163 H 159 H Respiratory Rate 22 13 22 Blood Pressure Pulse Oximetry 99 99 99 Oxygen Delivery Method Oxygen Flow Rate 01/03/24 08:50 01/03/24 08:50 01/03/24 08:55 Temperature Pulse Rate 170 H 156 H Respiratory Rate 16 25 H Blood Pressure 140/65 Pulse Oximetry 98 98 Oxygen Delivery Method Oxygen Flow Rate 01/03/24 09:00 01/03/24 09:00 01/03/24 09:01 Temperature Pulse Rate 160 H 175 H Respiratory Rate 20 Blood Pressure 95/53 L Pulse Oximetry 98 Oxygen Delivery Method Oxygen Flow Rate 01/03/24 09:04 01/03/24 09:04 01/03/24 09:05 Temperature Pulse Rate 139 H 135 H Respiratory Rate 16 17 Blood Pressure 107/63 Pulse Oximetry 98 98 Oxygen Delivery Method Oxygen Flow Rate 01/03/24 09:10 01/03/24 09:10 01/03/24 09:15 Temperature Pulse Rate 101 H 108 H Respiratory Rate 12 15 Blood Pressure 97/64 Pulse Oximetry 98 99 Oxygen Delivery Method Oxygen Flow Rate 01/03/24 09:20 01/03/24 09:20 01/03/24 09:25 Temperature Pulse Rate 101 H 103 H Respiratory Rate 13 13 Blood Pressure 108/73 Pulse Oximetry 99 100 Oxygen Delivery Method Oxygen Flow Rate 01/03/24 09:30 01/03/24 09:30 01/03/24 09:45 Temperature Pulse Rate 115 H 55 L Respiratory Rate 15 15 Blood Pressure 139/71 Pulse Oximetry 100 89 L Oxygen Delivery Method Oxygen Flow Rate 01/03/24 09:46 01/03/24 09:46 01/03/24 09:50 Temperature Pulse Rate 112 H Respiratory Rate 12 Blood Pressure 128/74 128/73 Pulse Oximetry 95 Oxygen Delivery Method Oxygen Flow Rate 01/03/24 09:50 01/03/24 09:55 01/03/24 10:00 Temperature Pulse Rate 115 H 112 H 130 H Respiratory Rate 22 11 L Blood Pressure Pulse Oximetry 99 99 98 Oxygen Delivery Method Oxygen Flow Rate 01/03/24 10:00 01/03/24 10:05 01/03/24 10:10 Temperature Pulse Rate 130 H 126 H Respiratory Rate 40 H 16 Blood Pressure 116/59 L Pulse Oximetry 97 98 Oxygen Delivery Method Oxygen Flow Rate 01/03/24 10:10 01/03/24 10:15 01/03/24 10:20 Temperature Pulse Rate 114 H Respiratory Rate 13 Blood Pressure 116/72 132/88 Pulse Oximetry 98 Oxygen Delivery Method Oxygen Flow Rate 01/03/24 10:20 01/03/24 10:25 01/03/24 10:30 Temperature Pulse Rate 127 H 134 H Respiratory Rate 11 L 18 Blood Pressure 126/66 Pulse Oximetry 98 98 Oxygen Delivery Method Oxygen Flow Rate 01/03/24 10:30 01/03/24 10:35 01/03/24 10:40 Temperature Pulse Rate 119 H 132 H Respiratory Rate 16 16 Blood Pressure 135/74 Pulse Oximetry 98 98 Oxygen Delivery Method Oxygen Flow Rate 01/03/24 10:40 01/03/24 10:45 01/03/24 10:51 Temperature Pulse Rate 131 H 137 H 124 H Respiratory Rate 21 Blood Pressure Pulse Oximetry 97 98 95 Oxygen Delivery Method Oxygen Flow Rate 01/03/24 10:53 01/03/24 10:53 01/03/24 10:55 Temperature Pulse Rate 153 H 159 H Respiratory Rate 34 H Blood Pressure 155/72 H Pulse Oximetry 98 98 Oxygen Delivery Method Oxygen Flow Rate 01/03/24 11:00 01/03/24 11:00 01/03/24 11:05 Temperature Pulse Rate 147 H Respiratory Rate 9 L Blood Pressure 104/58 L 132/65 Pulse Oximetry 98 Oxygen Delivery Method Oxygen Flow Rate 01/03/24 11:05 01/03/24 11:10 01/03/24 11:10 Temperature Pulse Rate 134 H 81 Respiratory Rate 19 23 Blood Pressure 110/63 Pulse Oximetry 99 99 Oxygen Delivery Method Oxygen Flow Rate 01/03/24 11:15 01/03/24 11:15 01/03/24 11:15 Temperature Pulse Rate 79 79 Respiratory Rate 14 12 Blood Pressure 136/74 136/74 Pulse Oximetry 99 100 Oxygen Delivery Method Oxygen Flow Rate 1 01/03/24 11:20 01/03/24 11:20 01/03/24 11:20 Temperature Pulse Rate 78 75 Respiratory Rate 14 13 Blood Pressure 128/72 128/72 Pulse Oximetry 99 99 Oxygen Delivery Method Oxygen Flow Rate 0 01/03/24 11:25 01/03/24 11:25 01/03/24 11:30 Temperature Pulse Rate 76 Respiratory Rate 15 Blood Pressure 132/79 133/78 Pulse Oximetry 99 Oxygen Delivery Method Oxygen Flow Rate 01/03/24 11:30 01/03/24 11:35 01/03/24 11:35 Temperature Pulse Rate 75 78 Respiratory Rate 12 12 Blood Pressure 137/80 Pulse Oximetry 99 99 Oxygen Delivery Method Oxygen Flow Rate 0 01/03/24 11:40 01/03/24 11:40 01/03/24 11:45 Temperature 97.7 F Pulse Rate 77 77 Respiratory Rate 16 17 Blood Pressure 136/82 Pulse Oximetry 99 99 Oxygen Delivery Method Oxygen Flow Rate 0 0 01/03/24 11:50 01/03/24 11:55 01/03/24 12:00 Temperature Pulse Rate 76 77 76 Respiratory Rate 20 19 10 L Blood Pressure Pulse Oximetry 98 98 99 Oxygen Delivery Method Oxygen Flow Rate 01/03/24 12:00 01/03/24 12:05 01/03/24 12:10 Temperature Pulse Rate 76 76 Respiratory Rate 13 13 Blood Pressure 128/79 Pulse Oximetry 97 98 Oxygen Delivery Method Oxygen Flow Rate 01/03/24 12:15 01/03/24 12:20 01/03/24 13:10 Temperature Pulse Rate 77 76 148 H Respiratory Rate 16 18 16 Blood Pressure Pulse Oximetry 98 98 Oxygen Delivery Method Oxygen Flow Rate MDM - Arrhythmia/Palpitations Lab Data 01/03/24 08:42 01/03/24 08:42 Labs: Lab Results 04/13/24 Range/Units 08:42 WBC 10.6 (4.5-11.0) X10^3/uL RBC 4.81 (4.5-5.9) X10^6/uL Hgb 14.0 (13.5-17.5) g/dL Hct 41.8 (41-53) % MCV 86.8 (80-100) fL MCH 29.0 (26-34) PG MCHC 33.4 (30-36) % RDW 14.7 (11.6-14.8) % Plt Count 224 (150-400) X10^3/uL Neut % (Auto) 70.1 (50-75) % Lymph % (Auto) 20.6 L (25-40) % Lyman % (Auto) 7.8 (3-14) % Eos % (Auto) 1.2 L (2-4) % Baso % (Auto) 0.3 (0-2) % Neut # (Auto) 7500 H (1111-8519) /uL Lymph # (Auto) 2200 (1398-8952) /uL Lyman # (Auto) 800 (0-900) /uL Eos # (Auto) 100 (0-450) /uL Baso # (Auto) 0 (0-100) /uL PT 19.8 H (9.4-12.5) SECONDS INR 1.7 H (0.9-1.3) APTT 41 H (25.1-36.5) SECONDS D-Dimer 1529 H (<500) ng/ml Sodium 140 (137-145) mmol/L Potassium 3.4 (3.4-5.1) mmol/L Chloride 108 H (98-107) mmol/L Carbon Dioxide 25 (22-32) mmol/L BUN 15 (9-20) mg/dL Creatinine 0.77 (0.66-1.25) mg/dL Estimated GFR > 60 (>60) mL/min BUN/Creatinine Ratio 19.5 (6-22) Glucose 113 H (80-110) mg/dL Calcium 9.4 (8.4-10.2) mg/dL Magnesium 2.0 (1.6-2.3) mg/dL Total Bilirubin 0.8 (0.2-1.3) mg/dL AST 28 (17-59) IU/L ALT 24 (<50) IU/L Alkaline Phosphatase 100 (38-126) U/L Total Creatine Kinase 72 (55-170) U/L Troponin I < 0.012 (0.01-0.034) ng/mL NT-Pro-B Natriuret Pep 6790 H (<450) pg/mL Total Protein 7.1 (6.3-8.2) g/dL Albumin 4.3 (3.5-5.0) g/dL Globulin 2.8 (1.7-4.1) g/dL Albumin/Globulin Ratio 1.5 (1.0-2.8) Lipase 108 (23-300) U/L Imaging Data Chest x-ray: Radiologist's Impresson: [address] [address] XRay Report Signed Patient: Brandon Banks MR#: [id number] : 1945 Acct:[id number] Age/Sex: 78 / M Date of Service: 01/03/24 Loc: ED Accession Number: [id number] Procedure: XR chest 1V Ordering Provider: Radha France D.O. PROCEDURE: XR CHEST 1V INDICATIONS: chest pain TECHNIQUE: One view of the chest was acquired. COMPARISON: [facility], , XR CHEST 1V, 10/25/2023, 11:23. FINDINGS: Surgical changes and devices: None. Lungs and pleura: Lungs are clear. No pleural effusions or pneumothorax. Mediastinum: Mediastinal contours appear normal. Heart size is normal. Bones and chest wall: No suspicious bony lesions. Overlying soft tissues appear unremarkable. IMPRESSION: No acute pulmonary process. Dictated by: Jenna Gaines M.D. on 01/03/2024 at 9:01 Approved by: Jenna Gaines M.D. on 01/03/2024 at 9:02 CT scan - chest: Radiologist's Impresson: [address] [address] [address] Scan Report Signed Patient: Brandon Banks MR#: [id number] : 1945 Acct:[id number] Age/Sex: 78 / M Date of Service: 01/03/24 Loc: ED Accession Number: [id number] Procedure: CT angio chest PE protocol Ordering Provider: Radha France D.O. PROCEDURE: CT ANGIO CHEST PE PROTOCOL INDICATIONS: r/o PE, afib rvr had hip replacement feb TECHNIQUE: After the administration of intravenous contrast, 2 mm thick sections acquired from the pulmonary apices to the posterior costophrenic angles. 3-dimensional maximum intensity projection (MIP) coronal and sagittal reformats were then acquired through the thorax. For radiation dose reduction, the following was used: automated exposure control, adjustment of mA and/or kV according to patient size. COMPARISON: [facility], CT, PE STUDY (CTA CHEST), 06/25/2017, 14:05. [facility], CR, XR CHEST 1V, 01/03/2024, 8:50. FINDINGS: Image quality: Diagnostic. Pulmonary arteries: Pulmonary arteries are normal in size, and demonstrate no intraluminal filling defects to suggest central pulmonary embolism. Lower Neck: No enlarged lymph nodes. Thyroid: No thyroid nodules which require sonographic follow up, per consensus guidelines. Axillae: No enlarged lymph nodes. Chest Wall: Unremarkable. Bones: Unremarkable. Lungs and Pleura: No pneumothorax or pleural effusions. No consolidation or suspicious nodules. Heart: Heart size is normal. No pericardial effusion. Thoracic Vessels: No aortic aneurysm. Mediastinum and Veronica: No enlarged lymph nodes. Esophagus: No wall thickening. No hiatal hernia. Upper Abdomen: Visualized upper abdomen solid organs and bowel loops appear normal. IMPRESSION: No pulmonary embolus. No acute cardiopulmonary process. Dictated by: Jenna Gaines M.D. on 01/03/2024 at 10:11 Approved by: Jenna Gaines M.D. on 01/03/2024 at 10:13 ECG Data Attestation: I personally reviewed and interpreted this ECG as follows: Prior ECG tracings: available for review Interpretation: AFib with rate of 157, QRS is 74 QTC 436. Patient EKG notes atrial flutter with variable AV block but this appears to be more consistent with AFib. Patient has prior from 10/25/2023 which appears similar with a sinus rhythm. Sinus rhythm rate of 77 HI 160 QRS 88 QTC 452. No acute ST elevation or depression. MDM Narrative Medical decision making narrative: 78-year-old male with history of atrial fibrillation known baseline patient appears to be in AFib RVR he is anticoagulated he has been in touch with his primary care and had his carvedilol increased from 12.5 mg twice daily to 25 mg twice daily earlier this week without any improvement in his rate. Patient does note he had hip replacement in October had a syncopal episode, was in AFib at that time and admitted. Labs show white count of 10.6 hemoglobin of 14 platelets of 224. Coags INR is 1.7 D-dimer is 1529, with patient's hip replacement in October would order CT angio CMP, sodium is 140 potassium 3 4 chloride 108 CO2 is 25 BUN 15 creatinine 0.77 glucose is 113 otherwise negative LFTs troponin is less than 0.12, BNP is 6790 increased quite a bit from prior in September 2021. No priors in the interim. CT angio is negative. Does not show any pulmonary edema. Chest x-ray shows no acute process. Patient received fluids, 10 mg of diltiazem on recheck, patient's heart rate did improve into the 100-70 range. Patient has echo from 10/25/2023 which show does proximal septal thickening no evidence of left ventricular outflow obstruction EF is 65-70% no focal wall motion abnormalities no evidence of intra arterial shunt, trace mitral regurg which appeared improved compared to prior, mild aortic sclerosis but without stenosis and [id number] aortic regurg. No pericardial effusion no pleural effusion. Patient notes he has repeat echo ordered for February. He does have a follow up appointment this Friday or Friday with cardiology in [place]. Patient had cardioversion with 40 mg of propofol as he noted that he has had issues where he is very groggy afterwards. He also noted that he they had some difficulty with the YSDNEE but he thinks it was actually that procedure not intubation. Patient had 40 mg of propofol with 120 joules cardioverted with a single shock. Tolerated well did require a little bit of BVM for 1 or 2 minutes initially but was respiring without any issue. Repeat EKG shows sinus rhythm. Dr. Ravi is medical scientific liaison for cardiology: Agrees with plan to continue with 25 mg metoprolol twice daily. Patient has follow up Friday or we did review patient was cardioverted without issue but BNP was quite elevated although chest x-ray, CT angio did not show any pulmonary edema patient did not appear fluid overloaded. Discharge Plan Departure Patient Disposition: Home Clinical Impression: Atrial fibrillation with rapid ventricular response Activity Restrictions/Additional Instructions: Follow up with Dr. Ravi your hazardous materials driver. Keep your appointment Roger Muniz this week. Continue your home medications as prescribed. I would continue your metoprolol 25 mg twice daily for the time being. Please return for recurrent symptoms, tachycardia, lightheadedness or passing out, new chest pain, shortness of breath, new swelling of extremities or other new or concerning changes. Prescriptions: No Action latanoprost 0.005 % drops 1 drp OPHTH HS Qty: 0 felodipine 5 mg tablet extended release 24 hr 5 mg PO DAILY Qty: 90 3RF carvedilol 25 mg tablet 25 mg PO Q12H Qty: 60 1RF Rx Instructions: must administer with a meal/food Eliquis 5 mg tablet 5 mg PO BID acetaminophen 500 mg Tablet 500 mg PO BID-TID PRN (Reason: Pain) docusate sodium 100 mg Capsule 100 mg PO BID PRN (Reason: constipation) Qty: 30 0RF atorvastatin 40 mg tablet 40 mg PO QAM Patient Comments: Pt takes in am Referrals: Azam Ravi MD [Physician] - Sydni Garcia ARNP [Primary Care Provider] - Stand Alone Forms: Patient Portal/API
[2024-01-03 08:57] LABS: INR 1.7 (0.9-1.3); Prothrombin Time 19.8 SECONDS (9.4-12.5)
[2024-01-03 08:59] LABS: PTT Partial Thromboplastin Tim 41 SECONDS (25.1-36.5)
[2024-01-03] MEDS: SODIUM CHLORIDE 0.9% 1,000 ML 1000 ML IV (09:01)
[2024-01-03] MEDS: dilTIAZem 5 MG/ML SDV 10 MG IV (09:01)
[2024-01-03 09:04] LABS: Alanine Aminotransferase 24 IU/L (<50); Albumin 4.3 g/dL (3.5-5.0); Albumin Globulin Ratio 1.5 (1.0-2.8); Alkaline Phosphatase 100 U/L (38-126); Aspartate Aminotransferase 28 IU/L (17-59); BUN Creatinine Ratio 19.5 (6-22); Bilirubin Total 0.8 mg/dL (0.2-1.3); Blood Urea Nitrogen 15 mg/dL (9-20); Calcium 9.4 mg/dL (8.4-10.2); Carbon Dioxide 25 mmol/L (22-32); Chloride 108 mmol/L (98-107); Creatine Kinase 72 U/L (55-170); Estimated Glomerular Filt Rate > 60 mL/min (>60); Globulin 2.8 g/dL (1.7-4.1); Glucose 113 mg/dL (80-110); HEMOLYSIS < 15 (0-50); Lipase 108 U/L (23-300); Potassium 3.4 mmol/L (3.4-5.1); Sodium 140 mmol/L (137-145); Total Protein 7.1 g/dL (6.3-8.2)
[2024-01-03 09:12] LABS: D Dimer 1529 ng/ml (<500)
[2024-01-03 09:15] LABS: Troponin I < 0.012 ng/mL (0.01-0.034)
[2024-01-03 09:17] LABS: NT-proBNP (BNP-Adult 18+) 6790 pg/mL (<450)
--- NOTE | 2024-01-03 09:24 | DI.CT.S_ITS ---
PROCEDURE: CT ANGIO CHEST PE PROTOCOL INDICATIONS: r/o PE, afib rvr had hip replacement feb TECHNIQUE: After the administration of intravenous contrast, 2 mm thick sections acquired from the pulmonary apices to the posterior costophrenic angles. 3-dimensional maximum intensity projection (MIP) coronal and sagittal reformats were then acquired through the thorax. For radiation dose reduction, the following was used: automated exposure control, adjustment of mA and/or kV according to patient size. COMPARISON: [facility], CT, PE STUDY (CTA CHEST), 06/25/2017, 14:05. [facility], CR, XR CHEST 1V, 01/03/2024, 8:50. FINDINGS: Image quality: Diagnostic. Pulmonary arteries: Pulmonary arteries are normal in size, and demonstrate no intraluminal filling defects to suggest central pulmonary embolism. Lower Neck: No enlarged lymph nodes. Thyroid: No thyroid nodules which require sonographic follow up, per consensus guidelines. Axillae: No enlarged lymph nodes. Chest Wall: Unremarkable. Bones: Unremarkable. Lungs and Pleura: No pneumothorax or pleural effusions. No consolidation or suspicious nodules. Heart: Heart size is normal. No pericardial effusion. Thoracic Vessels: No aortic aneurysm. Mediastinum and Veronica: No enlarged lymph nodes. Esophagus: No wall thickening. No hiatal hernia. Upper Abdomen: Visualized upper abdomen solid organs and bowel loops appear normal. IMPRESSION: No pulmonary embolus. No acute cardiopulmonary process. Dictated by: Jenna Gaines M.D. on 01/03/2024 at 10:11 Approved by: Jenna Gaines M.D. on 01/03/2024 at 10:13
[2024-01-03] MEDS: propofoL 200 MG/20 ML VIAL 85 MG IV (11:17)
== END 2024-01-03 12:37 | disposition home or self-care (01) ==
PROVIDERS: Emergency Provider Emergency Medicine; PCP Nurse Practitioner
DX: I48.20 Chronic atrial fibrillation, unspecified (principal); R07.9 Chest pain, unspecified; R55 Syncope and collapse; Z79.01 Long term (current) use of anticoagulants
CPT/HCPCS: 36415; 71045; 71275; 80053; 82550; 83690; 83735; 83880; 84484; 85025; 85379; 85610; 85730; 92960; 93005; 93010; 96361; 96374; 99152; 99285; J2704; Q9967

== ENCOUNTER → 2024-01-26 08:11 | Outpatient (CLI) | payer MEDICARE, SELFPAY ==
[2023-10-29 17:13] VITALS: BMI 30.4
[2024-01-26 09:21] LABS: Add Manual Diff / Slide Review NO; Basophils Absolute Auto 0 /uL (0-100); Basophils Percent Auto 0.3 % (0-2); Eosinophils Absolute Auto 100 /uL (0-450); Eosinophils Percent Auto 2.1 % (2-4); Hematocrit 40.7 % (41-53); Hemoglobin 13.7 g/dL (13.5-17.5); Lymphocytes Absolute Auto 1900 /uL (1100-4500); Lymphocytes Percent Auto 27.3 % (25-40); Mean Corpuscular HGB Conc 33.7 % (30-36); Mean Corpuscular Hemoglobin 28.7 PG (26-34); Mean Corpuscular Volume 85.2 fL (80-100); Monocytes Absolute Auto 700 /uL (0-900); Monocytes Percent Auto 9.9 % (3-14); Neutrophils Absolute Auto 4200 /uL (1500-7000); Neutrophils Percent Auto 60.4 % (50-75); Platelet Count 214 X10^3/uL (150-400); Red Blood Cell Count 4.78 X10^6/uL (4.5-5.9); Red Cell Distribution Width 15.3 % (11.6-14.8); White Blood Cell Count 6.9 X10^3/uL (4.5-11.0)
[2024-01-26 09:42] LABS: HEMOLYSIS < 15 (0-50); Iron 100 ug/dL (49-181)
[2024-01-26 09:50] LABS: Alanine Aminotransferase 21 IU/L (<50); Albumin 4.1 g/dL (3.5-5.0); Albumin Globulin Ratio 1.5 (1.0-2.8); Alkaline Phosphatase 97 U/L (38-126); Aspartate Aminotransferase 26 IU/L (17-59); BUN Creatinine Ratio 19.7 (6-22); Bilirubin Total 0.6 mg/dL (0.2-1.3); Blood Urea Nitrogen 12 mg/dL (9-20); Calcium 9.3 mg/dL (8.4-10.2); Carbon Dioxide 29 mmol/L (22-32); Chloride 108 mmol/L (98-107); Cholesterol 170 mg/dL (140-199); Estimated Glomerular Filt Rate > 60 mL/min (>60); Globulin 2.8 g/dL (1.7-4.1); Glucose 92 mg/dL (80-110); HDL Cholesterol 49 mg/dL (40-60); HEMOLYSIS < 15 (0-50); LDL Cholesterol Calculated 104 mg/dL (<100); Potassium 3.7 mmol/L (3.4-5.1); Sodium 139 mmol/L (137-145); Total Protein 6.9 g/dL (6.3-8.2); Triglycerides 84 mg/dL (35-150)
[2024-01-26 09:55] LABS: Percent Iron Saturation 42 % (20-50); Total Iron Binding Capacity 239 ug/dL (261-462); Transferrin 170 mg/dL (206-381)
[2024-01-26 10:01] LABS: Free T3, Triiodothyronine Free 4.27 pg/mL (2.77-5.27); Free T4, Direct Thyroxine 1.01 ng/dL (0.78-2.19)
[2024-01-26 10:18] LABS: Prostate Specific Antigen Scrn 2.39 ng/mL (0.1-4.0)
[2024-01-26 10:49] LABS: Creatinine Urine Random 75.1 mg/dL
[2024-01-26 10:53] LABS: Microalbumi Creatinin Ratio Ur 29.2 ug/mg CR (<30); Microalbumin Urine Random 2.2 mg/dL (0-1.6)
== END ==
PROVIDERS: PCP Nurse Practitioner; Referring Provider Physician Assistant; Visit Provider Physician Assistant
DX: Z12.5 Encounter for screening for malignant neoplasm of prostate (principal); I48.0 Paroxysmal atrial fibrillation; I10 Essential (primary) hypertension; E87.1 Hypo-osmolality and hyponatremia; E78.2 Mixed hyperlipidemia; R73.03 Prediabetes; D64.9 Anemia, unspecified; Z79.01 Long term (current) use of anticoagulants; Z79.899 Other long term (current) drug therapy
CPT/HCPCS: 36415; 80053; 80061; 82043; 82570; 83540; 83550; 84439; 84443; 84481; 85025; G0103

== ENCOUNTER → 2024-02-02 08:00 | Outpatient (CLI) | payer MEDICARE, SELFPAY ==
[2023-10-29 17:13] VITALS: BMI 30.4
[2024-02-02 08:28] LABS: BUN Creatinine Ratio 21.1 (6-22); Blood Urea Nitrogen 12 mg/dL (9-20); Calcium 8.8 mg/dL (8.4-10.2); Carbon Dioxide 29 mmol/L (22-32); Chloride 107 mmol/L (98-107); Estimated Glomerular Filt Rate > 60 mL/min (>60); Glucose 99 mg/dL (80-110); HEMOLYSIS < 15 (0-50); Potassium 3.6 mmol/L (3.4-5.1); Sodium 139 mmol/L (137-145)
== END ==
PROVIDERS: PCP Nurse Practitioner; Referring Provider Physician Assistant; Visit Provider Physician Assistant
DX: I10 Essential (primary) hypertension (principal)
CPT/HCPCS: 36415; 80048

== ENCOUNTER → 2024-03-03 08:23 | Outpatient (CLI) | payer MEDICARE, SELFPAY ==
[2023-10-29 17:13] VITALS: BMI 30.4
[2024-03-03 10:42] LABS: BUN Creatinine Ratio 23.7 (6-22); Blood Urea Nitrogen 18 mg/dL (9-20); Carbon Dioxide 26 mmol/L (22-32); Chloride 110 mmol/L (98-107); Estimated Glomerular Filt Rate > 60 mL/min (>60); Glucose 94 mg/dL (80-110); HEMOLYSIS < 15 (0-50); Potassium 4.6 mmol/L (3.4-5.1); Sodium 140 mmol/L (137-145)
== END ==
LOC: LAB 08:25
PROVIDERS: PCP Nurse Practitioner; Referring Provider Physician Assistant; Visit Provider Physician Assistant
DX: I10 Essential (primary) hypertension (principal)
CPT/HCPCS: 36415; 80048

== ENCOUNTER → 2024-03-08 09:11 | Outpatient (CLI) | payer MEDICARE, SELFPAY ==
[2023-10-29 17:13] VITALS: BMI 30.4
--- NOTE | 2024-03-08 09:13 | DI.ECHO.S_ITS ---
[facility] : : [address] : : [place] : : [id number] : : Phone: [phone] Echocardiogram Report + + :Name: JOSSE MITCHELL Study Date: 03/08/2024 Height: 68 in : :[facility] ReadingLocation: Weight: 180 lb : : Gender: Male BSA: 2.0 m2 : :: 1945 Age: 78 yrs BP: 153/92 mmHg: :Reason For Study: MITRAL INSUFFICIENCY : :Ordering Physician: RANDA, : :OSACAR Performed By: Ebony Hernández : :Referring: BLADIMIR LÓPEZ : + + Interpretation Summary The left ventricle is normal in size and wall thickness. Left ventricular systolic function appears normal without focal wall motion abnormalities. The ejection fraction is estimated to be 55-60%. Diastolic parameters suggest probable normal left ventricular diastolic function and normal filling pressures. The right ventricle is normal in size and function. The right ventricular systolic pressure is estimated to be at least 29 mmHg based on an estimated right atrial pressure of 3 mm Hg. The left atrium is mildly dilated. There is mild to moderate mitral regurgitation. There is mild aortic regurgitation. The aortic root is normal size. Procedure: A two-dimensional transthoracic echocardiogram with color flow and Doppler was performed. The study quality was technically adequate. Comparison is made with the echocardiogram of 10/26/2023. The patient was in sinus rhythm with heart rates between 59-70 bpm during the exam. Left Ventricle: The left ventricle is normal in size and wall thickness. Left ventricular systolic function appears normal without focal wall motion abnormalities. The ejection fraction is estimated to be 55-60%. Diastolic parameters suggest probable normal left ventricular diastolic function and normal filling pressures. Right Ventricle: The right ventricle is normal in size and function. Atria: The left atrium is mildly dilated. Right atrial size is normal. There is no Doppler evidence for an interatrial shunt. Mitral Valve: The mitral valve leaflets appear mildly thickened, but open well. There is mild to moderate mitral regurgitation. Aortic Valve: The aortic valve is trileaflet. The aortic valve opens well. The aortic valve is slightly calcified. There is no aortic valve stenosis. There is mild aortic regurgitation. Tricuspid Valve: The tricuspid valve is normal in structure and function. There is mild tricuspid regurgitation. The right ventricular systolic pressure is estimated to be at least 29 mmHg based on an estimated right atrial pressure of 3 mm Hg. Pulmonic Valve: The pulmonic valve leaflets are thin and pliable; valve motion is normal. There is mild pulmonic regurgitation. Great Vessels: The aortic root is normal size. The dimensions of the ascending aorta are normal. The IVC is of normal diameter and collapses greater than 50% with a sniff. This suggests a low right atrial pressure of 3 mm Hg. Pericardium/ Pleura There is no pericardial effusion. There is no pleural effusion. MMode/2D Measurements & Calculations LVIDd: 5.4 cm LVOT diam: 2.0 cm LVIDs: 3.5 cm Ao root diam: 3.5 cm FS: 34.1 % asc Aorta Diam: 3.0 cm IVSd: 0.97 cm Ao Arch Diam (Prox Trans): 3.2 cm LVPWd: 1.0 cm LV ponce. diameter/BSA (cm/m^2): 2.7 LV sys. diameter/BSA (cm/m^2): 1.8 LA A2 area: 26.5 cm2 RA long axis: 5.2 cm LA A4 area: 19.7 cm2 RA area: 17.7 cm2 LA length (vol): 5.5 cm RA vol: 50.9 ml LA vol: 80.0 ml RA : 26.0 ml/m2 LA vol index: 40.9 ml/m2 IVC diam: 1.6 cm RVD1 (basal): 3.5 cm TAPSE: 2.4 cm Doppler Measurements & Calculations Ao V2 max: 135.3 cm/sec LVOT Max Shelton: 92.0 cm/sec Ao V2 mean: 93.5 cm/sec LV V1 max P.4 mmHg Ao max P.3 mmHg LV V1 VTI: 18.2 cm Ao mean P.9 mmHg JERRY(I,D): 2.0 cm2 Ao V2 VTI: 27.8 cm JERRY(V,D): 2.1 cm2 sev ratio: 0.66 JERRY indexed to BSA (cm^2/m^2): 1.0 AI P1/2t: 598.6 msec AI dec slope: 202.6 cm/sec2 MV E max shelton: 63.2 cm/sec TR max shelton: 257.8 cm/sec MV A max shelton: 45.5 cm/sec TR max P.6 mmHg MV E/A: 1.4 PA V2 max: 74.6 cm/sec Med Peak E' Shelton: 6.8 cm/sec PA V2 mean: 54.5 cm/sec E/E' med: 9.3 PA mean P.3 mmHg Lat Peak E' Shelton: 7.3 cm/sec PA pr(Accel): 36.2 mmHg E/E' lat: 8.6 E/e' average: 9.0 MV dec time: 0.24 sec SV(LVOT): 55.3 ml Reading Physician:[id number] PM
== END ==
PROVIDERS: PCP Nurse Practitioner; Referring Provider Internal Medicine Cardiovascular Disease; Visit Provider Internal Medicine Cardiovascular Disease
DX: I08.3 Combined rheumatic disorders of mitral, aortic and tricuspid valves (principal)
CPT/HCPCS: 93306

== ENCOUNTER → 2024-05-03 07:36 | Outpatient (CLI) | payer MEDICARE, SELFPAY ==
[2023-10-29 17:13] VITALS: BMI 30.4
[2024-05-03 08:10] LABS: Hematocrit 35.4 % (41-53); Hemoglobin 12.3 g/dL (13.5-17.5); Mean Corpuscular HGB Conc 34.7 % (30-36); Mean Corpuscular Hemoglobin 31.2 PG (26-34); Mean Corpuscular Volume 89.8 fL (80-100); Platelet Count 203 X10^3/uL (150-400); Red Blood Cell Count 3.94 X10^6/uL (4.5-5.9); Red Cell Distribution Width 13.9 % (11.6-14.8)
[2024-05-03 08:21] LABS: Alanine Aminotransferase 22 IU/L (<50); Albumin 3.9 g/dL (3.5-5.0); Albumin Globulin Ratio 1.5 (1.0-2.8); Alkaline Phosphatase 76 U/L (38-126); Aspartate Aminotransferase 28 IU/L (17-59); BUN Creatinine Ratio 19.8 (6-22); Bilirubin Total 0.6 mg/dL (0.2-1.3); Blood Urea Nitrogen 17 mg/dL (9-20); Calcium 9.2 mg/dL (8.4-10.2); Carbon Dioxide 24 mmol/L (22-32); Chloride 108 mmol/L (98-107); Estimated Glomerular Filt Rate > 60 mL/min (>60); Globulin 2.6 g/dL (1.7-4.1); Glucose 100 mg/dL (80-110); HEMOLYSIS < 15 (0-50); Potassium 4.4 mmol/L (3.4-5.1); Sodium 139 mmol/L (137-145); Total Protein 6.5 g/dL (6.3-8.2)
[2024-05-03 08:25] LABS: HEMOLYSIS < 15 (0-50); Iron 97 ug/dL (49-181)
[2024-05-03 08:31] LABS: Neutrophils Absolute Manual 4200 /uL (3000-5900); RBC Morphology Normal Morphology; Total Cells Counted 100
[2024-05-03 08:37] LABS: Percent Iron Saturation 39 % (20-50); Total Iron Binding Capacity 248 ug/dL (261-462); Transferrin 178 mg/dL (206-381)
[2024-05-03 08:59] LABS: Ferritin 202 ng/mL (18-464)
== END ==
PROVIDERS: PCP Nurse Practitioner; Referring Provider Nurse Practitioner; Visit Provider Nurse Practitioner
DX: Z86.79 Personal history of other diseases of the circulatory system (principal); D50.9 Iron deficiency anemia, unspecified; Z79.01 Long term (current) use of anticoagulants
CPT/HCPCS: 36415; 80053; 82728; 83540; 83550; 85025

== ENCOUNTER → 2024-05-31 07:16 | Outpatient (CLI) | payer MEDICARE, SELFPAY ==
[2023-10-29 17:13] VITALS: BMI 30.4
[2024-05-31 13:40] LABS: Occult Blood 1 Negative (Negative); Occult Blood 2 Negative (Negative); Occult Blood 3 Negative (Negative)
== END ==
PROVIDERS: PCP Nurse Practitioner; Referring Provider Nurse Practitioner; Visit Provider Nurse Practitioner
DX: D64.9 Anemia, unspecified (principal); Z79.01 Long term (current) use of anticoagulants
CPT/HCPCS: 82270

== ENCOUNTER → 2024-06-04 07:07 | Outpatient (CLI) | payer MEDICARE, SELFPAY ==
[2023-10-29 17:13] VITALS: BMI 30.4
[2024-06-04 08:13] LABS: Reticulocyte Count, Percent 0.7 % (0.9-2.6)
[2024-06-04 08:32] LABS: Lactate Dehydrogenase 155 U/L (120-246)
[2024-06-04 08:33] LABS: HEMOLYSIS < 15 (0-50); Iron 86 ug/dL (49-181)
[2024-06-04 08:47] LABS: Percent Iron Saturation 34 % (20-50); Total Iron Binding Capacity 252 ug/dL (261-462)
[2024-06-04 08:48] LABS: Transferrin 187 mg/dL (206-381)
[2024-06-04 10:07] LABS: Ferritin 249 ng/mL (18-464)
== END ==
PROVIDERS: PCP Family Medicine; Referring Provider Family Medicine; Visit Provider Family Medicine
DX: D64.9 Anemia, unspecified (principal); Z86.79 Personal history of other diseases of the circulatory system; Z79.01 Long term (current) use of anticoagulants; Z78.9 Other specified health status
CPT/HCPCS: 36415; 82728; 83540; 83550; 83615; 85045

== ENCOUNTER → 2024-07-20 07:15 | Outpatient (CLI) | payer MEDICARE, SELFPAY ==
[2023-10-29 17:13] VITALS: BMI 30.4
[2024-07-20 08:30] LABS: HEMOLYSIS < 15 (0-50); Iron 93 ug/dL (49-181)
[2024-07-20 08:41] LABS: Percent Iron Saturation 36 % (20-50); Total Iron Binding Capacity 259 ug/dL (261-462); Transferrin 196 mg/dL (206-381)
== END ==
PROVIDERS: PCP Family Medicine; Referring Provider Family Medicine; Visit Provider Family Medicine
DX: E61.1 Iron deficiency (principal); I10 Essential (primary) hypertension; Z79.01 Long term (current) use of anticoagulants; I48.20 Chronic atrial fibrillation, unspecified
CPT/HCPCS: 36415; 83540; 83550

== ENCOUNTER → 2024-08-24 07:23 | Outpatient (CLI) | payer MEDICARE, SELFPAY ==
[2023-10-29 17:13] VITALS: BMI 30.4
[2024-08-24 07:57] LABS: Add Manual Diff / Slide Review NO; Basophils Absolute Auto 0 /uL (0-100); Basophils Percent Auto 0.3 % (0-2); Eosinophils Absolute Auto 200 /uL (0-450); Eosinophils Percent Auto 2.5 % (2-4); Hematocrit 37.3 % (41-53); Hemoglobin 12.6 g/dL (13.5-17.5); Lymphocytes Absolute Auto 2000 /uL (1100-4500); Lymphocytes Percent Auto 29.6 % (25-40); Mean Corpuscular HGB Conc 33.8 % (30-36); Mean Corpuscular Hemoglobin 30.6 PG (26-34); Mean Corpuscular Volume 90.6 fL (80-100); Monocytes Absolute Auto 700 /uL (0-900); Monocytes Percent Auto 10.6 % (3-14); Neutrophils Absolute Auto 3900 /uL (1500-7000); Platelet Count 215 X10^3/uL (150-400); Red Blood Cell Count 4.11 X10^6/uL (4.5-5.9); Red Cell Distribution Width 13.5 % (11.6-14.8); White Blood Cell Count 6.9 X10^3/uL (4.5-11.0)
[2024-08-24 08:30] LABS: Alanine Aminotransferase 23 IU/L (<50); Albumin 3.9 g/dL (3.5-5.0); Albumin Globulin Ratio 1.4 (1.0-2.8); Alkaline Phosphatase 71 U/L (38-126); Aspartate Aminotransferase 30 IU/L (17-59); BUN Creatinine Ratio 21.3 (6-22); Bilirubin Total 0.7 mg/dL (0.2-1.3); Blood Urea Nitrogen 20 mg/dL (9-20); Calcium 9.3 mg/dL (8.4-10.2); Carbon Dioxide 25 mmol/L (22-32); Chloride 106 mmol/L (98-107); Estimated Glomerular Filt Rate > 60 mL/min (>60); Globulin 2.8 g/dL (1.7-4.1); Glucose 101 mg/dL (80-110); HEMOLYSIS < 15 (0-50); Potassium 4.4 mmol/L (3.4-5.1); Sodium 136 mmol/L (137-145); Total Protein 6.7 g/dL (6.3-8.2)
== END ==
PROVIDERS: PCP Family Medicine; Referring Provider Internal Medicine Cardiovascular Disease; Visit Provider Internal Medicine Cardiovascular Disease
DX: Z79.01 Long term (current) use of anticoagulants (principal)
CPT/HCPCS: 36415; 80053; 85025

== ENCOUNTER → 2024-11-16 08:44 | Outpatient (CLI) | payer MEDICARE, SELFPAY ==
[2023-10-29 17:13] VITALS: BMI 30.4
[2024-11-16 09:54] LABS: HEMOLYSIS < 15 (0-50); Hemoglobin A1C% w Est Avg Glu 5.4 % (4.0-6.0); Iron 102 ug/dL (49-181)
[2024-11-16 10:00] LABS: Percent Iron Saturation 43 % (20-50); Total Iron Binding Capacity 240 ug/dL (261-462); Transferrin 198 mg/dL (206-381)
[2024-11-16 10:29] LABS: Ferritin 281 ng/mL (18-464)
== END ==
PROVIDERS: PCP Family Medicine; Referring Provider Family Medicine; Visit Provider Family Medicine
DX: R73.03 Prediabetes (principal); R79.0 Abnormal level of blood mineral
CPT/HCPCS: 36415; 82728; 83036; 83540; 83550

== ENCOUNTER → 2025-05-27 07:17 | Outpatient (CLI) | payer MEDICARE, SELFPAY ==
[2023-10-29 17:13] VITALS: BMI 30.4
[2025-05-27 07:36] LABS: Add Manual Diff / Slide Review NO; Hematocrit 34.9 % (41-53); Hemoglobin 12.1 g/dL (13.5-17.5); Lymphocytes Absolute Auto 1900 /uL (1100-4500); Mean Corpuscular HGB Conc 34.6 % (30-36); Mean Corpuscular Hemoglobin 30.8 PG (26-34); Mean Corpuscular Volume 89.0 fL (80-100); Platelet Count 188 X10^3/uL (150-400)
[2025-05-27 07:59] LABS: Alanine Aminotransferase 22 IU/L (<50); Albumin 3.9 g/dL (3.5-5.0); Albumin Globulin Ratio 1.5 (1.0-2.8); Alkaline Phosphatase 72 U/L (38-126); Blood Urea Nitrogen 12 mg/dL (9-20); Calcium 9.0 mg/dL (8.4-10.2); Carbon Dioxide 25 mmol/L (22-32); Chloride 106 mmol/L (98-107); Cholesterol 125 mg/dL (140-199); Estimated Glomerular Filt Rate > 60 mL/min (>60); Globulin 2.6 g/dL (1.7-4.1); Glucose 100 mg/dL (70-99); HDL Cholesterol 40 mg/dL (40-60); HEMOLYSIS < 15 (0-50); Potassium 4.1 mmol/L (3.4-5.1); Sodium 138 mmol/L (137-145); Total Protein 6.5 g/dL (6.3-8.2); Triglycerides 94 mg/dL (35-150)
== END ==
PROVIDERS: PCP Family Medicine; Referring Provider Family Medicine; Visit Provider Family Medicine
DX: I10 Essential (primary) hypertension (principal); R73.03 Prediabetes; E78.5 Hyperlipidemia, unspecified
CPT/HCPCS: 36415; 80053; 80061; 85025

== ENCOUNTER → 2025-06-03 07:10 | Outpatient (CLI) | payer MEDICARE, SELFPAY ==
[2023-10-29 17:13] VITALS: BMI 30.4
--- NOTE | 2025-06-03 07:13 | DI.US.S_ITS ---
PROCEDURE: US ABDOMEN LIMITED INDICATIONS: persitent abnormal iron studies TECHNIQUE: Real-time focused scanning was performed of the abdomen, with image documentation. COMPARISON: None. FINDINGS: Right kidney measures 11.3 cm in sagittal dimension. No hydronephrosis. Gallbladder is unremarkable. Common bile duct measures 1 mm. Appropriate direction of flow within the main portal vein. Cyst in the left lobe of the liver measuring 3.7 x 3.4 x 2.8 cm. Normal liver size and echogenicity. IMPRESSION: Prominent simple cyst in the liver. Otherwise unremarkable. Dictated by: Franklin Quiñonez M.D. on 06/03/2025 at 10:47 Approved by: Franklin Quiñonez M.D. on 06/03/2025 at 10:50
== END ==
PROVIDERS: PCP Family Medicine; Referring Provider Family Medicine; Visit Provider Family Medicine
DX: K76.89 Other specified diseases of liver (principal); E78.2 Mixed hyperlipidemia; I10 Essential (primary) hypertension; R79.0 Abnormal level of blood mineral; R73.03 Prediabetes; Z79.01 Long term (current) use of anticoagulants; Z86.79 Personal history of other diseases of the circulatory system
CPT/HCPCS: 76705

== ENCOUNTER → 2025-08-25 08:00 | Outpatient (CLI) | payer MEDICARE, SELFPAY ==
[2023-10-29 17:13] VITALS: BMI 30.4
[2025-08-25 09:14] LABS: Alanine Aminotransferase 21 IU/L (<50); Albumin 4.0 g/dL (3.5-5.0); Albumin Globulin Ratio 1.3 (1.0-2.8); Alkaline Phosphatase 72 U/L (38-126); Blood Urea Nitrogen 18 mg/dL (9-20); Calcium 9.2 mg/dL (8.4-10.2); Carbon Dioxide 23 mmol/L (22-32); Chloride 100 mmol/L (98-107); Estimated Glomerular Filt Rate > 60 mL/min (>60); Globulin 3.0 g/dL (1.7-4.1); Glucose 100 mg/dL (70-99); HEMOLYSIS < 15 (0-50); Potassium 4.8 mmol/L (3.4-5.1); Sodium 132 mmol/L (137-145); Total Protein 7.0 g/dL (6.3-8.2)
== END ==
PROVIDERS: PCP Family Medicine; Referring Provider Family Medicine; Visit Provider Internal Medicine Cardiovascular Disease
DX: I48.0 Paroxysmal atrial fibrillation (principal); Z79.01 Long term (current) use of anticoagulants
CPT/HCPCS: 36415; 80053